=== PATIENT | male | born 1965 | race Caucasian/White ===

== ENCOUNTER 2016-06-11 19:18 | Inpatient (IN) | payer MEDICARE, MEDICAID ==
[~2016-06-11] VITALS: Ht 185.4 cm; Wt 97.2 kg
[~2016-06-11 19:18] MED LIST: BUPR-93 PO; CARB200T6 PO; NALT50 PO; QUET50XR PO
[2016-06-11] MEDS ORDERED: ZOLPIDEM TARTRATE 10 MG TABLET PO PRN (20:15)
[2016-06-11] MEDS ORDERED: HALOPERIDOL 5 MG TABLET PO PRN (20:15)
[2016-06-11] MEDS ORDERED: GABA-531 PO (20:55)
[2016-06-11 21:12] LABS: BASOPHILS % (AUTO) 0.7 % (0.0-2.0); EOSINOPHILS % (AUTO) 5.2 % (1.0-6.0); HEMATOCRIT 38.3 % (41-53); HEMOGLOBIN 13.1 g/dL (13.5-17.5); LYMPHOCYTES # (AUTO) 1.5 K/uL (1.0-4.8); LYMPHOCYTES % (AUTO) 25.7 % (22.0-44.0); MEAN CORPUSCULAR HEMOGLOBIN 30.5 pg (26.0-34.0); MEAN CORPUSCULAR HGB CONC 34.2 G/dL (31.0-37.0); MEAN CORPUSCULAR VOLUME 89 fL (80-100); MONOCYTES # (AUTO) 0.5 K/uL (0.1-1.0); MONOCYTES % (AUTO) 8.6 % (2.0-9.0); NEUTROPHILS # (AUTO) 3.5 K/uL (1.8-7.7); NEUTROPHILS % (AUTO) 59.8 % (40.0-70.0); PLATELET COUNT (AUTO) 299 K/uL (150-450); RED BLOOD CELL COUNT(AUTO) 4.31 MIL/uL (4.50-5.90); RED CELL DISTRIBUTION WIDTH 12.8 % (11.5-14.5); WHITE BLOOD COUNT (AUTO) 5.9 K/uL (4.5-11.0)
[2016-06-11 21:22] LABS: ANION GAP 10 mmol/L (8-16); CALCIUM, TOTAL 7.9 mg/dL (8.8-10.5); CARBON DIOXIDE 27 mmol/L (22-29); CHLORIDE 106 mmol/L (98-107); CREATININE 0.68 mg/dL (0.60-1.30); GLOMERULAR FILTR. RATE CALC > 60 mL/min (>60); POTASSIUM 3.7 mmol/L (3.5-5.1); SODIUM SERUM 143 mmol/L (136-145); UREA NITROGEN, BLOOD 9 mg/dL (7-18)
[2016-06-11 21:28] LABS: ALANINE AMINOTRANSFERASE 43 U/L (12-78); ALBUMIN 2.9 g/dL (3.4-5.0); ASPARTATE AMINOTRANSFERASE 29 U/L (15-37); BILIRUBIN,TOTAL 0.2 mg/dL (0.1-1.0); TOTAL PROTEIN, SERUM 6.6 g/dL (6.4-8.2)
[2016-06-11 21:50] LABS: APPEARANCE,URINE CLEAR (CLEAR); GLUCOSE, URINE (UA) NEGATIVE (NEGATIVE); KETONES,URINE NEGATIVE (NEGATIVE); LEUKOCYTE ESTERASE ,URINE NEGATIVE (NEGATIVE); OCCULT BLOOD,URINE NEGATIVE (NEGATIVE); PROTEIN,URINE NEGATIVE (NEGATIVE)
[2016-06-11 21:51] LABS: ADD UA MICROSCOPIC NO
[2016-06-11] MEDS ORDERED: DiphenhydrAMINE HCL 25 MG CAPSULE PO ONE (23:15)
[2016-06-11] MEDS ORDERED: DEXAMETHASONE SOD PHOS 4 MG/ML 5 ML VIAL IM ONE (23:15)
[2016-06-12 06:35] LABS: BASOPHILS % (AUTO) 0.2 % (0.0-2.0); EOSINOPHILS % (AUTO) 0.4 % (1.0-6.0); HEMATOCRIT 41.5 % (41-53); HEMOGLOBIN 13.9 g/dL (13.5-17.5); LYMPHOCYTES # (AUTO) 0.8 K/uL (1.0-4.8); LYMPHOCYTES % (AUTO) 10.4 % (22.0-44.0); MEAN CORPUSCULAR HEMOGLOBIN 30.2 pg (26.0-34.0); MEAN CORPUSCULAR HGB CONC 33.5 G/dL (31.0-37.0); MEAN CORPUSCULAR VOLUME 90 fL (80-100); MONOCYTES # (AUTO) 0.1 K/uL (0.1-1.0); MONOCYTES % (AUTO) 1.2 % (2.0-9.0); NEUTROPHILS # (AUTO) 6.4 K/uL (1.8-7.7); PLATELET COUNT (AUTO) 288 K/uL (150-450); RED BLOOD CELL COUNT(AUTO) 4.61 MIL/uL (4.50-5.90); RED CELL DISTRIBUTION WIDTH 13.1 % (11.5-14.5); WHITE BLOOD COUNT (AUTO) 7.3 K/uL (4.5-11.0)
[2016-06-12 06:54] LABS: NEUTROPHILS % (AUTO) 87.8 % (40.0-70.0)
[2016-06-12 07:06] LABS: HEMOGLOBIN A1C 5.9 % (4.5-6.2)
[2016-06-12 07:12] LABS: ALANINE AMINOTRANSFERASE 41 U/L (12-78); ALBUMIN 2.9 g/dL (3.4-5.0); ANION GAP 8 mmol/L (8-16); ASPARTATE AMINOTRANSFERASE 27 U/L (15-37); BILIRUBIN,TOTAL 0.3 mg/dL (0.1-1.0); CALCIUM, TOTAL 8.2 mg/dL (8.8-10.5); CARBON DIOXIDE 27 mmol/L (22-29); CHLORIDE 105 mmol/L (98-107); CHOL/HDL RATIO 3.1 (4.2-7.3); CREATININE 0.93 mg/dL (0.60-1.30); GLOMERULAR FILTR. RATE CALC > 60 mL/min (>60); POTASSIUM 4.1 mmol/L (3.5-5.1); SODIUM SERUM 140 mmol/L (136-145); THYROID STIMULATING HORMONE 1.13 uIU/mL (0.36-3.74); TOTAL PROTEIN, SERUM 6.9 g/dL (6.4-8.2); UREA NITROGEN, BLOOD 11 mg/dL (7-18)
[2016-06-12 09:12] LABS: RBC MORPHOLOGY COMMENT NORMAL RBC MORPH
[2016-06-12] MEDS: BuPROPion HCL XL 150 MG ER TABLET PO SCH (11:18)
[2016-06-12] MEDS ORDERED: ACETAMINOPHEN 325 MG TABLET PO PRN (14:15)
[2016-06-12] MEDS ORDERED: IBUPROFEN 600 MG TABLET PO PRN (14:15)
[2016-06-12] MEDS ORDERED: MAG HYDROX/AL HYDROX/SIMETH ES 30 ML SUSPENSION UDCUP PO PRN (14:45)
[2016-06-12] MEDS ORDERED: ONDANSETRON HCL 4 MG TABLET PO PRN (14:45)
[2016-06-12] MEDS ORDERED: BACITRACIN 28.4 GM OINTMENT TP PRN (14:45)
[2016-06-12] MEDS ORDERED: PETROLATUM,WHITE 71 GM JELLY TP PRN (14:45)
[2016-06-12] MEDS ORDERED: MAGNESIUM HYDROXIDE SUSPENSION 30 ML UDCUP PO PRN (14:45)
[2016-06-12] MEDS ORDERED: CloNIDine HCL 0.1 MG TABLET PO PRN (14:45)
[2016-06-12] MEDS ORDERED: LOPERAMIDE HCL 2 MG CAPSULE PO PRN (14:45)
[2016-06-12] MEDS ORDERED: ALBUTEROL SULFATE HFA 90 MCG/PUFF 8 GM INHALER IH PRN (14:45)
[2016-06-12] MEDS ORDERED: BENZOCAINE/MENTHOL LOZENGE [8 LOZENGES/PACKET] MM PRN (15:00)
[2016-06-12] MEDS: CLOBETASOL 0.05% 15 GM CREAM TP SCH (16:32)
[2016-06-12 17:15] VITALS: BP 143/82
[2016-06-12] MEDS: QUEtiapine FUMARATE 200 MG TABLET PO SCH (20:05)
[2016-06-13] MEDS: CHOLECALCIFEROL (VIT D3) 1,000 UNITS TABLET PO SCH (08:27)
[2016-06-13] MEDS: BuPROPion HCL XL 150 MG ER TABLET PO SCH (08:27)
[2016-06-13 08:46] VITALS: BP 117/62
[2016-06-13] MEDS: CLOBETASOL 0.05% 15 GM CREAM TP SCH (12:09)
[2016-06-13 19:53] VITALS: BP 118/65
[2016-06-13] MEDS: QUEtiapine FUMARATE 200 MG TABLET PO SCH (20:04)
[2016-06-14 08:10] VITALS: BP 113/62
[2016-06-14] MEDS: CLOBETASOL 0.05% 15 GM CREAM TP SCH (09:23)
[2016-06-14] MEDS: LORazepam 2 MG TABLET PO PRN (09:26)
[2016-06-14] MEDS: CHOLECALCIFEROL (VIT D3) 1,000 UNITS TABLET PO SCH (09:30)
[2016-06-14] MEDS: BuPROPion HCL XL 150 MG ER TABLET PO SCH (09:30)
[2016-06-14 16:30] VITALS: BP 123/73
[2016-06-14] MEDS: QUEtiapine FUMARATE 200 MG ER TABLET PO SCH (19:39)
[2016-06-15 08:09] VITALS: BP 102/72
[2016-06-15] MEDS: CHOLECALCIFEROL (VIT D3) 1,000 UNITS TABLET PO SCH (08:52)
[2016-06-15] MEDS: BuPROPion HCL XL 150 MG ER TABLET PO SCH (08:52)
[2016-06-15] MEDS: CLOBETASOL 0.05% 15 GM CREAM TP SCH (08:53)
[2016-06-15] MEDS: LORazepam 2 MG TABLET PO PRN (11:26)
[2016-06-15 18:49] VITALS: BP_SYST 107; BP_SYST 112; BP_DIAS 68; BP_DIAS 72
[2016-06-15] MEDS: QUEtiapine FUMARATE 200 MG ER TABLET PO SCH (19:20)
[2016-06-16 08:30] VITALS: BP 108/72
[2016-06-16] MEDS: CHOLECALCIFEROL (VIT D3) 1,000 UNITS TABLET PO SCH (08:44)
[2016-06-16] MEDS: BuPROPion HCL XL 150 MG ER TABLET PO SCH (08:44)
[2016-06-16] MEDS: CLOBETASOL 0.05% 15 GM CREAM TP SCH (08:45)
[2016-06-16] MEDS: LORazepam 2 MG TABLET PO PRN (15:01)
[2016-06-16 16:44] VITALS: BP 132/78
[2016-06-16] MEDS: QUEtiapine FUMARATE 200 MG ER TABLET PO SCH (19:30)
[2016-06-17 08:30] VITALS: BP 132/81
[2016-06-17] MEDS: CHOLECALCIFEROL (VIT D3) 1,000 UNITS TABLET PO SCH (09:02)
[2016-06-17] MEDS: BuPROPion HCL XL 150 MG ER TABLET PO SCH (09:02)
[2016-06-17] MEDS: CLOBETASOL 0.05% 15 GM CREAM TP SCH (09:03)
[2016-06-17] MEDS: LORazepam 2 MG TABLET PO PRN (16:39)
[2016-06-17 16:47] VITALS: BP 144/76
[2016-06-17] MEDS: QUEtiapine FUMARATE 200 MG ER TABLET PO SCH (20:59)
[2016-06-18 08:11] VITALS: BP 118/67
[2016-06-18] MEDS: CHOLECALCIFEROL (VIT D3) 1,000 UNITS TABLET PO SCH (08:53)
[2016-06-18] MEDS: BuPROPion HCL XL 150 MG ER TABLET PO SCH (08:54)
[2016-06-18] MEDS: CLOBETASOL 0.05% 15 GM CREAM TP SCH (11:16)
[2016-06-18] MEDS ORDERED: QUET200XR PO (11:34)
[2016-06-18] MEDS ORDERED: BUPR-93 PO (11:34)
[2016-06-18] MEDS ORDERED: VITAD1000 PO (11:36)
[2016-06-18] MEDS ORDERED: TEMO15C TP (11:37)
== END 2016-06-18 12:00 | disposition home or self-care (01) | DRG 885 ==
LOC: BV PSY EVL 20:42 → 3EI 23:50
PROVIDERS: ATTEND Psychiatry & Neurology Psychiatry
DX: F31.30 Bipolar disorder, current episode depressed, mild or moderate severity, unspecified (principal); R45.851 Suicidal ideations; E55.9 Vitamin D deficiency, unspecified; F25.1 Schizoaffective disorder, depressive type; F17.200 Nicotine dependence, unspecified, uncomplicated; I10 Essential (primary) hypertension; J44.9 Chronic obstructive pulmonary disease, unspecified; K21.9 Gastro-esophageal reflux disease without esophagitis; K59.00 Constipation, unspecified; L23.7 Allergic contact dermatitis due to plants, except food; Y90.6 Blood alcohol level of 120-199 mg/100 ml; M25.562 Pain in left knee; F10.229 Alcohol dependence with intoxication, unspecified; Z59.0 Homelessness; Z71.6 Tobacco abuse counseling; Z91.5 Personal history of self-harm; Z28.21 Immunization not carried out because of patient refusal; Z79.899 Other long term (current) drug therapy; Z56.0 Unemployment, unspecified
CPT/HCPCS: 83036; 84439; 84443; 96372; 99285; G0480; J1100; J3535; Q0162

== ENCOUNTER 2016-07-05 23:58 | Inpatient (IN) | payer MEDICARE, MEDICAID ==
[~2016-07-05] VITALS: Ht 185.4 cm; Wt 99.9 kg
[~2016-07-05 23:58] MED LIST changes: -CARB200T6 PO; -NALT50 PO; +QUET200XR PO; -QUET50XR PO; +TEMO15C TP; +VITAD1000 PO
[2016-07-06] VITALS (7 sets, daily range): BP systolic 116–160; BP diastolic 68–83
[2016-07-06] MEDS ORDERED: ZOLPIDEM TARTRATE 10 MG TABLET PO PRN ×2 (03:00→03:30)
[2016-07-06] MEDS ORDERED: HALOPERIDOL 5 MG TABLET PO PRN (03:00)
[2016-07-06] MEDS ORDERED: LORazepam 2 MG TABLET PO PRN ×3 (03:00→04:30)
[2016-07-06] MEDS ORDERED: QUEtiapine FUMARATE 100 MG TABLET PO PRN (03:30)
[2016-07-06] MEDS ORDERED: LOPERAMIDE HCL 2 MG CAPSULE PO PRN ×2 (04:30→08:30)
[2016-07-06] MEDS ORDERED: HydrOXYzine PAMOATE 50 MG CAPSULE PO PRN (04:30)
[2016-07-06] MEDS ORDERED: GuaiFENesin/D-METHORPHAN [SUGAR-FREE] 200-20MG/10 ML SYRUP UDCUP PO PRN (04:30)
[2016-07-06] MEDS ORDERED: INFLUENZA VIRUS VACCINE QVS 2016-17 (3YR+)/PF 60 MCG/0.5 ML SYRINGE IM ONE (06:00)
[2016-07-06] MEDS ORDERED: PNEUMOCOCCAL VACCINE POLYVALENT 0.5 ML VIAL [PPSV23] IM ONE (06:00)
[2016-07-06] MEDS ORDERED: ALBUTEROL SULFATE HFA 90 MCG/PUFF 8 GM INHALER IH PRN (08:30)
[2016-07-06] MEDS ORDERED: ONDANSETRON HCL 4 MG TABLET PO PRN (08:30)
[2016-07-06] MEDS ORDERED: PETROLATUM,WHITE 71 GM JELLY TP PRN (08:30)
[2016-07-06] MEDS ORDERED: BACITRACIN 28.4 GM OINTMENT TP PRN (08:30)
[2016-07-06] MEDS ORDERED: CloNIDine HCL 0.1 MG TABLET PO PRN (08:30)
[2016-07-06] MEDS ORDERED: ACETAMINOPHEN 325 MG TABLET PO PRN (08:30)
[2016-07-06] MEDS ORDERED: MAG HYDROX/AL HYDROX/SIMETH ES 30 ML SUSPENSION UDCUP PO PRN (08:30)
[2016-07-06] MEDS ORDERED: IBUPROFEN 600 MG TABLET PO PRN (08:30)
[2016-07-06] MEDS ORDERED: BENZOCAINE/MENTHOL LOZENGE MM PRN (08:30)
[2016-07-06] MEDS ORDERED: CYANOCOBALAMIN 1,000 MCG/ML VIAL IM ONE (09:00)
[2016-07-06] MEDS: FOLIC ACID 1 MG TABLET PO SCH (09:35)
[2016-07-06] MEDS: THIAMINE HCL 100 MG TABLET PO SCH ×2 (09:36→17:06)
[2016-07-06] MEDS: MULTIVITAMINS WITH MINERALS, THERAPEUTIC TABLET PO SCH (09:36)
[2016-07-06] MEDS: CHOLECALCIFEROL (VIT D3) 1,000 UNITS TABLET PO SCH (09:36)
[2016-07-06] MEDS: CarBAMazepine 200 MG TABLET PO SCH (17:43)
[2016-07-07 00:08] VITALS: BP 115/65
[2016-07-07 03:10] VITALS: BP 126/77
[2016-07-07] MEDS ORDERED: LORazepam 2 MG TABLET PO PRN (07:00)
[2016-07-07 07:15] VITALS: BP 123/72
[2016-07-07 08:14] VITALS: BP 130/82
[2016-07-07 08:15] VITALS: BP 130/82
[2016-07-07] MEDS: THIAMINE HCL 100 MG TABLET PO SCH ×2 (09:13→16:40)
[2016-07-07] MEDS: MULTIVITAMINS WITH MINERALS, THERAPEUTIC TABLET PO SCH (09:13)
[2016-07-07] MEDS: FOLIC ACID 1 MG TABLET PO SCH (09:13)
[2016-07-07] MEDS: LORazepam 2 MG TABLET PO SCH ×4 (09:14→20:33)
[2016-07-07] MEDS: CHOLECALCIFEROL (VIT D3) 1,000 UNITS TABLET PO SCH (09:14)
[2016-07-07] MEDS: CarBAMazepine 200 MG TABLET PO SCH ×2 (09:14→16:40)
[2016-07-07 16:08] VITALS: BP 123/71
[2016-07-07] MEDS: MAGNESIUM HYDROXIDE SUSPENSION 30 ML UDCUP PO PRN (20:10)
[2016-07-08] VITALS: BP 116/73
[2016-07-08 06:32] VITALS: BP 116/69
[2016-07-08 07:37] LABS: BASOPHILS # (AUTO) 0.03 K/uL (0.00-0.20); BASOPHILS % (AUTO) 0.5 % (0.0-2.0); EOSINOPHILS # (AUTO) 0.36 K/uL (0.00-0.70); EOSINOPHILS % (AUTO) 6.03 % (1.0-6.0); HEMOGLOBIN 13.8 g/dL (13.5-17.5); LYMPHOCYTES # (AUTO) 1.5 K/uL (1.0-4.8); LYMPHOCYTES % (AUTO) 25.1 % (22.0-44.0); MEAN CORPUSCULAR HEMOGLOBIN 30.2 pg (26.0-34.0); MEAN CORPUSCULAR HGB CONC 33.6 G/dL (31.0-37.0); MEAN CORPUSCULAR VOLUME 90 fL (80-100); MONOCYTES # (AUTO) 0.4 K/uL (0.1-1.0); MONOCYTES % (AUTO) 7.2 % (2.0-9.0); NEUTROPHILS # (AUTO) 3.6 K/uL (1.8-7.7); NEUTROPHILS % (AUTO) 61.1 % (40.0-70.0); PLATELET COUNT (AUTO) 271 K/uL (150-450); RED BLOOD CELL COUNT(AUTO) 4.57 MIL/uL (4.50-5.90); RED CELL DISTRIBUTION WIDTH 14.6 % (11.5-14.5); WHITE BLOOD COUNT (AUTO) 5.9 K/uL (4.5-11.0)
[2016-07-08 08:01] LABS: ALANINE AMINOTRANSFERASE 35 U/L (12-78); ALBUMIN 2.9 g/dL (3.4-5.0); ANION GAP 5 mmol/L (8-16); ASPARTATE AMINOTRANSFERASE 16 U/L (15-37); BILIRUBIN,TOTAL 0.3 mg/dL (0.1-1.0); CALCIUM, TOTAL 8.3 mg/dL (8.8-10.5); CARBON DIOXIDE 30 mmol/L (22-29); CHLORIDE 103 mmol/L (98-107); CREATININE 0.93 mg/dL (0.60-1.30); GLOMERULAR FILTR. RATE CALC > 60 mL/min (>60); POTASSIUM 4.1 mmol/L (3.5-5.1); SODIUM SERUM 138 mmol/L (136-145); TOTAL PROTEIN, SERUM 6.6 g/dL (6.4-8.2); UREA NITROGEN, BLOOD 9 mg/dL (7-18)
[2016-07-08 08:02] VITALS: BP 118/72
[2016-07-08] MEDS: MULTIVITAMINS WITH MINERALS, THERAPEUTIC TABLET PO SCH (09:31)
[2016-07-08] MEDS: THIAMINE HCL 100 MG TABLET PO SCH ×2 (09:32→16:43)
[2016-07-08] MEDS: CarBAMazepine 200 MG TABLET PO SCH ×2 (09:32→16:43)
[2016-07-08] MEDS: LORazepam 2 MG TABLET PO SCH ×4 (09:32→20:41)
[2016-07-08] MEDS: FOLIC ACID 1 MG TABLET PO SCH (09:32)
[2016-07-08] MEDS: CHOLECALCIFEROL (VIT D3) 1,000 UNITS TABLET PO SCH (09:32)
[2016-07-08 16:14] VITALS: BP 119/71
[2016-07-09 00:32] VITALS: BP 113/68
[2016-07-09 03:13] VITALS: BP 113/68
[2016-07-09] MEDS: MAGNESIUM HYDROXIDE SUSPENSION 30 ML UDCUP PO PRN (06:43)
[2016-07-09] MEDS ORDERED: LORazepam 1 MG TABLET PO PRN (07:00)
[2016-07-09 08:27] VITALS: BP 119/56
[2016-07-09] MEDS: THIAMINE HCL 100 MG TABLET PO SCH ×2 (09:34→16:38)
[2016-07-09] MEDS: LORazepam 1 MG TABLET PO SCH ×4 (09:35→20:40)
[2016-07-09] MEDS: BuPROPion HCL XL 150 MG ER TABLET PO SCH (09:35)
[2016-07-09] MEDS: MULTIVITAMINS WITH MINERALS, THERAPEUTIC TABLET PO SCH (09:36)
[2016-07-09] MEDS: CHOLECALCIFEROL (VIT D3) 1,000 UNITS TABLET PO SCH (09:36)
[2016-07-09] MEDS: FOLIC ACID 1 MG TABLET PO SCH (09:36)
[2016-07-09] MEDS: CarBAMazepine 200 MG TABLET PO SCH ×2 (09:38→16:37)
[2016-07-09 13:23] VITALS: BP 111/74
[2016-07-09 16:53] VITALS: BP 116/75
[2016-07-09] MEDS: QUEtiapine FUMARATE 50 MG ER TABLET PO SCH (19:06)
[2016-07-10] VITALS: BP 117/73
[2016-07-10 08:28] VITALS: BP 102/55
[2016-07-10] MEDS: CarBAMazepine 200 MG TABLET PO SCH ×2 (09:06→16:35)
[2016-07-10] MEDS: BuPROPion HCL XL 150 MG ER TABLET PO SCH (09:07)
[2016-07-10] MEDS: MULTIVITAMINS WITH MINERALS, THERAPEUTIC TABLET PO SCH (09:07)
[2016-07-10] MEDS: THIAMINE HCL 100 MG TABLET PO SCH ×2 (09:07→16:35)
[2016-07-10] MEDS: FOLIC ACID 1 MG TABLET PO SCH (09:07)
[2016-07-10] MEDS: CHOLECALCIFEROL (VIT D3) 1,000 UNITS TABLET PO SCH (09:07)
[2016-07-10] MEDS: LORazepam 1 MG TABLET PO PRN ×2 (09:22→22:55)
[2016-07-10 16:25] VITALS: BP 108/67
[2016-07-10] MEDS: QUEtiapine FUMARATE 50 MG ER TABLET PO SCH (18:59)
[2016-07-11 06:15] VITALS: BP 103/60
[2016-07-11 08:18] VITALS: BP 101/65
[2016-07-11] MEDS: BuPROPion HCL XL 150 MG ER TABLET PO SCH (08:54)
[2016-07-11] MEDS: CarBAMazepine 200 MG TABLET PO SCH ×2 (08:54→16:40)
[2016-07-11] MEDS: FOLIC ACID 1 MG TABLET PO SCH (08:54)
[2016-07-11] MEDS: MULTIVITAMINS WITH MINERALS, THERAPEUTIC TABLET PO SCH (08:54)
[2016-07-11] MEDS: CHOLECALCIFEROL (VIT D3) 1,000 UNITS TABLET PO SCH (08:54)
[2016-07-11] MEDS: THIAMINE HCL 100 MG TABLET PO SCH ×2 (08:54→16:40)
[2016-07-11] MEDS: MAGNESIUM HYDROXIDE SUSPENSION 30 ML UDCUP PO PRN (09:00)
[2016-07-11 16:12] VITALS: BP 121/79
[2016-07-11] MEDS: QUEtiapine FUMARATE 50 MG ER TABLET PO SCH (19:00)
[2016-07-12 00:52] VITALS: BP 101/62
[2016-07-12 08:07] VITALS: BP 117/78
[2016-07-12] MEDS: FOLIC ACID 1 MG TABLET PO SCH (08:11)
[2016-07-12] MEDS: THIAMINE HCL 100 MG TABLET PO SCH ×2 (08:11→16:35)
[2016-07-12] MEDS: CarBAMazepine 200 MG TABLET PO SCH ×2 (08:11→16:35)
[2016-07-12] MEDS: NALTREXONE HCL 50 MG TABLET PO SCH (08:11)
[2016-07-12] MEDS: MULTIVITAMINS WITH MINERALS, THERAPEUTIC TABLET PO SCH (08:11)
[2016-07-12] MEDS: CHOLECALCIFEROL (VIT D3) 1,000 UNITS TABLET PO SCH (08:11)
[2016-07-12] MEDS: BuPROPion HCL XL 150 MG ER TABLET PO SCH (08:11)
[2016-07-12] MEDS: LORazepam 2 MG TABLET PO PRN ×3 (08:32→23:53)
[2016-07-12 16:09] VITALS: BP 117/61
[2016-07-12] MEDS: QUEtiapine FUMARATE 50 MG ER TABLET PO SCH (19:40)
[2016-07-13 00:01] VITALS: BP 113/82
[2016-07-13 08:19] VITALS: BP 108/60
[2016-07-13] MEDS: THIAMINE HCL 100 MG TABLET PO SCH ×2 (09:23→16:13)
[2016-07-13] MEDS: FOLIC ACID 1 MG TABLET PO SCH (09:23)
[2016-07-13] MEDS: CHOLECALCIFEROL (VIT D3) 1,000 UNITS TABLET PO SCH (09:23)
[2016-07-13] MEDS: NALTREXONE HCL 50 MG TABLET PO SCH (09:23)
[2016-07-13] MEDS: MULTIVITAMINS WITH MINERALS, THERAPEUTIC TABLET PO SCH (09:23)
[2016-07-13] MEDS: BuPROPion HCL XL 150 MG ER TABLET PO SCH (09:24)
[2016-07-13] MEDS: CarBAMazepine 100 MG CHEWABLE TABLET PO SCH ×2 (09:24→16:12)
[2016-07-13 16:12] VITALS: BP 130/61
[2016-07-13] MEDS: LORazepam 2 MG TABLET PO PRN ×2 (16:38→21:34)
[2016-07-13] MEDS: QUEtiapine FUMARATE 50 MG ER TABLET PO SCH (19:34)
[2016-07-14 04:26] VITALS: BP 134/71
[2016-07-14 07:01] VITALS: BP 118/160
[2016-07-14 08:06] VITALS: BP 118/60
[2016-07-14] MEDS: MULTIVITAMINS WITH MINERALS, THERAPEUTIC TABLET PO SCH (08:34)
[2016-07-14] MEDS: NALTREXONE HCL 50 MG TABLET PO SCH (08:34)
[2016-07-14] MEDS: FOLIC ACID 1 MG TABLET PO SCH (08:34)
[2016-07-14] MEDS: THIAMINE HCL 100 MG TABLET PO SCH ×2 (08:34→16:56)
[2016-07-14] MEDS: BuPROPion HCL XL 150 MG ER TABLET PO SCH (08:34)
[2016-07-14] MEDS: CHOLECALCIFEROL (VIT D3) 1,000 UNITS TABLET PO SCH (08:34)
[2016-07-14] MEDS: CarBAMazepine 100 MG CHEWABLE TABLET PO SCH (08:34)
[2016-07-14 16:21] VITALS: BP 124/67
[2016-07-14] MEDS: QUEtiapine FUMARATE 50 MG ER TABLET PO SCH (19:17)
[2016-07-14] MEDS: LORazepam 2 MG TABLET PO PRN (22:54)
[2016-07-15 01:07] VITALS: BP 110/66
[2016-07-15 08:26] VITALS: BP 101/63
[2016-07-15] MEDS: MULTIVITAMINS WITH MINERALS, THERAPEUTIC TABLET PO SCH (08:46)
[2016-07-15] MEDS: BuPROPion HCL XL 150 MG ER TABLET PO SCH (08:46)
[2016-07-15] MEDS: THIAMINE HCL 100 MG TABLET PO SCH ×2 (08:46→16:06)
[2016-07-15] MEDS: FOLIC ACID 1 MG TABLET PO SCH (08:46)
[2016-07-15] MEDS: CHOLECALCIFEROL (VIT D3) 1,000 UNITS TABLET PO SCH (08:47)
[2016-07-15] MEDS: NALTREXONE HCL 50 MG TABLET PO SCH (08:48)
[2016-07-15] MEDS: LORazepam 2 MG TABLET PO PRN ×2 (13:22→18:35)
[2016-07-15 16:04] VITALS: BP 131/81
[2016-07-15] MEDS: QUEtiapine FUMARATE 50 MG ER TABLET PO SCH (18:35)
[2016-07-16 00:15] VITALS: BP 110/68
[2016-07-16 08:04] VITALS: BP 111/54
[2016-07-16] MEDS ORDERED: QUET150T PO (08:13)
[2016-07-16] MEDS ORDERED: NALT50TA10 PO (08:15)
[2016-07-16] MEDS: MULTIVITAMINS WITH MINERALS, THERAPEUTIC TABLET PO SCH (08:16)
[2016-07-16] MEDS: CHOLECALCIFEROL (VIT D3) 1,000 UNITS TABLET PO SCH (08:16)
[2016-07-16] MEDS: BuPROPion HCL XL 150 MG ER TABLET PO SCH (08:16)
[2016-07-16] MEDS: NALTREXONE HCL 50 MG TABLET PO SCH (08:16)
== END 2016-07-16 10:30 | disposition home or self-care (01) | DRG 885 ==
LOC: B3A 07-06 03:05 → B2X 07-06 17:10 → B2S 07-12 20:02
PROVIDERS: ADMIT Psychiatry & Neurology Psychiatry; ATTEND Psychiatry & Neurology Psychiatry
DX: F31.30 Bipolar disorder, current episode depressed, mild or moderate severity, unspecified (principal); F10.239 Alcohol dependence with withdrawal, unspecified; R45.851 Suicidal ideations; F31.9 Bipolar disorder, unspecified; F25.9 Schizoaffective disorder, unspecified; G47.00 Insomnia, unspecified; I10 Essential (primary) hypertension; J44.9 Chronic obstructive pulmonary disease, unspecified; F17.210 Nicotine dependence, cigarettes, uncomplicated; K21.9 Gastro-esophageal reflux disease without esophagitis; F10.220 Alcohol dependence with intoxication, uncomplicated; E55.9 Vitamin D deficiency, unspecified; K59.00 Constipation, unspecified; Z79.899 Other long term (current) drug therapy; Z91.14 Patient's other noncompliance with medication regimen; Z59.0 Homelessness; Z28.21 Immunization not carried out because of patient refusal; Z71.6 Tobacco abuse counseling
CPT/HCPCS: 87081; 90471; J3420

== ENCOUNTER 2016-09-02 23:49 | Inpatient (IN) | payer MEDICARE, MEDICAID ==
[~2016-09-02] VITALS: Ht 185.4 cm; Wt 94.3 kg
[~2016-09-02 23:49] MED LIST changes: +NALT50TA10 PO; +QUET150T PO; -QUET200XR PO; -TEMO15C TP
[2016-09-03] VITALS (10 sets, daily range): BP systolic 112–145; BP diastolic 65–83
[2016-09-03] MEDS ORDERED: LORazepam 2 MG TABLET PO PRN (02:45)
[2016-09-03] MEDS ORDERED: ZOLPIDEM TARTRATE 5 MG TABLET PO PRN (02:45)
[2016-09-03] MEDS ORDERED: PNEUMOCOCCAL VACCINE POLYVALENT 0.5 ML VIAL [PPSV23] IM ONE (05:30)
[2016-09-03] MEDS ORDERED: LOPERAMIDE HCL 2 MG CAPSULE PO PRN (08:00)
[2016-09-03] MEDS ORDERED: MAGNESIUM HYDROXIDE SUSPENSION 30 ML UDCUP PO PRN (08:00)
[2016-09-03] MEDS ORDERED: BACITRACIN 28.4 GM OINTMENT TP PRN (08:00)
[2016-09-03] MEDS ORDERED: ONDANSETRON HCL 4 MG TABLET PO PRN (08:00)
[2016-09-03] MEDS ORDERED: PETROLATUM,WHITE 71 GM JELLY TP PRN (08:00)
[2016-09-03] MEDS ORDERED: CloNIDine HCL 0.1 MG TABLET PO PRN (08:00)
[2016-09-03] MEDS ORDERED: MAG HYDROX/AL HYDROX/SIMETH ES 30 ML SUSPENSION UDCUP PO PRN (08:00)
[2016-09-03] MEDS ORDERED: ALBUTEROL SULFATE HFA 90 MCG/PUFF 8 GM INHALER IH PRN (08:00)
[2016-09-03] MEDS ORDERED: ACETAMINOPHEN 325 MG TABLET PO PRN (08:00)
[2016-09-03] MEDS ORDERED: IBUPROFEN 600 MG TABLET PO PRN (08:00)
[2016-09-03] MEDS: CarBAMazepine 200 MG TABLET PO SCH ×2 (08:07→16:51)
[2016-09-03] MEDS ORDERED: BENZOCAINE/MENTHOL LOZENGE [8 LOZENGES/PACKET] MM PRN (08:15)
[2016-09-03] MEDS: CHOLECALCIFEROL (VIT D3) 1,000 UNITS TABLET PO SCH (08:29)
[2016-09-04] VITALS (7 sets, daily range): BP systolic 110–121; BP diastolic 57–75
[2016-09-04 06:30] LABS: BASOPHILS # (AUTO) 0.02 K/uL (0.00-0.20); BASOPHILS % (AUTO) 0.4 % (0.0-2.0); EOSINOPHILS # (AUTO) 0.35 K/uL (0.00-0.70); HEMOGLOBIN 13.9 g/dL (13.5-17.5); LYMPHOCYTES # (AUTO) 1.3 K/uL (1.0-4.8); LYMPHOCYTES % (AUTO) 28.2 % (22.0-44.0); MEAN CORPUSCULAR HEMOGLOBIN 30.8 pg (26.0-34.0); MEAN CORPUSCULAR HGB CONC 33.1 G/dL (31.0-37.0); MEAN CORPUSCULAR VOLUME 93 fL (80-100); MONOCYTES # (AUTO) 0.4 K/uL (0.1-1.0); NEUTROPHILS # (AUTO) 2.6 K/uL (1.8-7.7); NEUTROPHILS % (AUTO) 55.9 % (40.0-70.0); PLATELET COUNT (AUTO) 248 K/uL (150-450); RED BLOOD CELL COUNT(AUTO) 4.51 MIL/uL (4.50-5.90); WHITE BLOOD COUNT (AUTO) 4.7 K/uL (4.5-11.0)
[2016-09-04] MEDS ORDERED: LORazepam 2 MG TABLET PO PRN (07:00)
[2016-09-04 07:40] LABS: ALANINE AMINOTRANSFERASE 30 U/L (12-78); ALBUMIN 3.2 g/dL (3.4-5.0); ANION GAP 6 mmol/L (8-16); ASPARTATE AMINOTRANSFERASE 17 U/L (15-37); BILIRUBIN,TOTAL 0.3 mg/dL (0.1-1.0); CALCIUM, TOTAL 8.2 mg/dL (8.8-10.5); CARBON DIOXIDE 29 mmol/L (22-29); CHLORIDE 105 mmol/L (98-107); CHOL/HDL RATIO 4.3 (4.2-7.3); CREATININE 0.84 mg/dL (0.60-1.30); GLOMERULAR FILTR. RATE CALC > 60 mL/min (>60); POTASSIUM 4.4 mmol/L (3.5-5.1); SODIUM SERUM 140 mmol/L (136-145); THYROID STIMULATING HORMONE 1.34 uIU/mL (0.36-3.74); TOTAL PROTEIN, SERUM 6.3 g/dL (6.4-8.2); UREA NITROGEN, BLOOD 14 mg/dL (7-18)
[2016-09-04] MEDS: CarBAMazepine 200 MG TABLET PO SCH ×2 (08:27→16:04)
[2016-09-04] MEDS: LORazepam 2 MG TABLET PO SCH ×4 (08:27→20:41)
[2016-09-04] MEDS: CHOLECALCIFEROL (VIT D3) 1,000 UNITS TABLET PO SCH (08:27)
[2016-09-05] MEDS: CarBAMazepine 200 MG TABLET PO SCH ×2 (08:17→16:15)
[2016-09-05] MEDS: LORazepam 2 MG TABLET PO SCH ×4 (08:17→21:07)
[2016-09-05] MEDS: BuPROPion HCL XL 150 MG ER TABLET PO SCH (08:17)
[2016-09-05] MEDS: CHOLECALCIFEROL (VIT D3) 1,000 UNITS TABLET PO SCH (08:17)
[2016-09-05 08:19] VITALS: BP 116/67
[2016-09-05 17:21] VITALS: BP 121/76
[2016-09-06] MEDS ORDERED: LORazepam 1 MG TABLET PO PRN (07:00)
[2016-09-06 08:30] VITALS: BP 110/65
[2016-09-06] MEDS: CarBAMazepine 200 MG TABLET PO SCH ×2 (08:32→17:22)
[2016-09-06] MEDS: CHOLECALCIFEROL (VIT D3) 1,000 UNITS TABLET PO SCH (08:32)
[2016-09-06] MEDS: BuPROPion HCL XL 150 MG ER TABLET PO SCH (08:33)
[2016-09-06] MEDS: LORazepam 1 MG TABLET PO SCH ×4 (08:35→21:00)
[2016-09-06 16:36] VITALS: BP 111/71
[2016-09-07] MEDS ORDERED: LORazepam 1 MG TABLET PO PRN (07:00)
[2016-09-07 08:30] VITALS: BP 107/69
[2016-09-07] MEDS: CarBAMazepine 200 MG TABLET PO SCH ×2 (08:54→16:04)
[2016-09-07] MEDS: BuPROPion HCL XL 150 MG ER TABLET PO SCH (08:54)
[2016-09-07] MEDS: CHOLECALCIFEROL (VIT D3) 1,000 UNITS TABLET PO SCH (08:54)
[2016-09-07 18:31] VITALS: BP 130/74
[2016-09-08] MEDS: CarBAMazepine 100 MG CHEWABLE TABLET PO SCH ×2 (08:21→16:30)
[2016-09-08] MEDS: BuPROPion HCL XL 150 MG ER TABLET PO SCH (08:21)
[2016-09-08] MEDS: CHOLECALCIFEROL (VIT D3) 1,000 UNITS TABLET PO SCH (08:22)
[2016-09-08 08:30] VITALS: BP 109/69
[2016-09-08 16:47] VITALS: BP 120/72
[2016-09-08] MEDS: QUEtiapine FUMARATE 50 MG ER TABLET PO SCH (18:36)
[2016-09-09] MEDS: CarBAMazepine 100 MG CHEWABLE TABLET PO SCH (08:34)
[2016-09-09] MEDS: CHOLECALCIFEROL (VIT D3) 1,000 UNITS TABLET PO SCH (08:34)
[2016-09-09] MEDS: BuPROPion HCL XL 150 MG ER TABLET PO SCH (08:35)
[2016-09-09 08:43] VITALS: BP 101/67
[2016-09-09 17:16] VITALS: BP 119/68
[2016-09-09] MEDS: QUEtiapine FUMARATE 50 MG ER TABLET PO SCH (19:30)
[2016-09-10] MEDS: BuPROPion HCL XL 150 MG ER TABLET PO SCH (08:24)
[2016-09-10] MEDS: CHOLECALCIFEROL (VIT D3) 1,000 UNITS TABLET PO SCH (08:24)
[2016-09-10] MEDS: CarBAMazepine 100 MG CHEWABLE TABLET PO SCH (08:25)
== END 2016-09-10 12:30 | disposition home or self-care (01) | DRG 885 ==
LOC: 3EX 09-03 03:16 → UNDOADMIN 09-03 03:29 → 3EI 09-09 10:58
PROVIDERS: ADMIT Psychiatry & Neurology Psychiatry; ATTEND Psychiatry & Neurology Psychiatry
PROC: 3E0234Z Introduction of Serum, Toxoid and Vaccine into Muscle, Percutaneous Approach (ICD-10-PCS; principal; 2016-09-03)
DX: F31.9 Bipolar disorder, unspecified (principal); F32.3 Major depressive disorder, single episode, severe with psychotic features; R45.851 Suicidal ideations; F10.220 Alcohol dependence with intoxication, uncomplicated; I10 Essential (primary) hypertension; K21.9 Gastro-esophageal reflux disease without esophagitis; J44.9 Chronic obstructive pulmonary disease, unspecified; E55.9 Vitamin D deficiency, unspecified; F17.200 Nicotine dependence, unspecified, uncomplicated; G47.00 Insomnia, unspecified; Z28.21 Immunization not carried out because of patient refusal; Z71.6 Tobacco abuse counseling; Z79.899 Other long term (current) drug therapy
CPT/HCPCS: 84439; 84443

== ENCOUNTER 2016-09-23 20:34 | Emergency (ER) | payer OTHER, MEDICAID ==
[~2016-09-23] VITALS: Ht 188 cm; Wt 97.7 kg
[~2016-09-23 20:34] MED LIST changes: -NALT50TA10 PO
[2016-09-23 21:07] LABS: BASOPHILS % (AUTO) 0.5 % (0.0-2.0); EOSINOPHILS % (AUTO) 5.3 % (1.0-6.0); HEMATOCRIT 41.9 % (41-53); HEMOGLOBIN 13.5 g/dL (13.5-17.5); LYMPHOCYTES # (AUTO) 1.5 K/uL (1.0-4.8); MEAN CORPUSCULAR HGB CONC 32.1 G/dL (31.0-37.0); MEAN CORPUSCULAR VOLUME 93 fL (80-100); MONOCYTES # (AUTO) 0.7 K/uL (0.1-1.0); MONOCYTES % (AUTO) 9.4 % (2.0-9.0); NEUTROPHILS # (AUTO) 4.9 K/uL (1.8-7.7); NEUTROPHILS % (AUTO) 64.8 % (40.0-70.0); PLATELET COUNT (AUTO) 289 K/uL (150-450); RED BLOOD CELL COUNT(AUTO) 4.49 MIL/uL (4.50-5.90); RED CELL DISTRIBUTION WIDTH 14.1 % (11.5-14.5); WHITE BLOOD COUNT (AUTO) 7.5 K/uL (4.5-11.0)
[2016-09-23 21:17] LABS: ANION GAP 6 mmol/L (8-16); CALCIUM, TOTAL 8.7 mg/dL (8.8-10.5); CARBON DIOXIDE 31 mmol/L (22-29); CHLORIDE 101 mmol/L (98-107); CREATININE 0.82 mg/dL (0.60-1.30); GLOMERULAR FILTR. RATE CALC > 60 mL/min (>60); POTASSIUM 4.4 mmol/L (3.5-5.1); SODIUM SERUM 138 mmol/L (136-145); UREA NITROGEN, BLOOD 16 mg/dL (7-18)
[2016-09-23 21:23] LABS: ALANINE AMINOTRANSFERASE 29 U/L (12-78); ALBUMIN 3.5 g/dL (3.4-5.0); ASPARTATE AMINOTRANSFERASE 13 U/L (15-37); BILIRUBIN,TOTAL 0.2 mg/dL (0.1-1.0); TOTAL PROTEIN, SERUM 7.6 g/dL (6.4-8.2)
[2016-09-24 01:10] VITALS: BP 138/78
== END 2016-09-24 01:13 | disposition home or self-care (01) ==
LOC: EMS 20:37
DX: F20.9 Schizophrenia, unspecified (principal); I10 Essential (primary) hypertension; F31.9 Bipolar disorder, unspecified; F12.90 Cannabis use, unspecified, uncomplicated
CPT/HCPCS: 36415; 80053; 80307; 85025; 99284; G0480

== ENCOUNTER 2017-02-06 23:28 | Inpatient (IN) | payer MEDICARE, MEDICAID ==
[~2017-02-06] VITALS: Ht 185.4 cm; Wt 105.6 kg
[2017-02-07] VITALS (9 sets, daily range): BP systolic 130–142; BP diastolic 71–86
[2017-02-07] MEDS ORDERED: ZOLPIDEM TARTRATE 10 MG TABLET PO PRN (03:45)
[2017-02-07] MEDS ORDERED: QUEtiapine FUMARATE 100 MG TABLET PO PRN (03:45)
[2017-02-07] MEDS ORDERED: LORazepam 1 MG TABLET PO PRN (03:45)
[2017-02-07] MEDS ORDERED: INFLUENZA VIRUS VACCINE QVS 2017-18 (3YR+)/PF 60 MCG/0.5 ML SYRINGE IM ONE (04:30)
[2017-02-07] MEDS ORDERED: PNEUMOCOCCAL VACCINE POLYVALENT 0.5 ML VIAL [PPSV23] IM ONE (06:00)
[2017-02-07] MEDS: LORazepam 2 MG TABLET PO PRN ×2 (12:34→16:36)
[2017-02-08 06:54] VITALS: BP 136/72
[2017-02-08 06:55] VITALS: BP 136/72
[2017-02-08] MEDS ORDERED: LORazepam 2 MG TABLET PO PRN (07:00)
[2017-02-08 08:00] VITALS: BP 133/77
[2017-02-08 08:30] LABS: BASOPHILS # (AUTO) 0.03 K/uL (0.00-0.20); BASOPHILS % (AUTO) 0.6 % (0.0-2.0); EOSINOPHILS # (AUTO) 0.32 K/uL (0.00-0.70); EOSINOPHILS % (AUTO) 6.45 % (1.0-6.0); HEMATOCRIT 42.5 % (41-53); HEMOGLOBIN 14.3 g/dL (13.5-17.5); LYMPHOCYTES # (AUTO) 1.3 K/uL (1.0-4.8); LYMPHOCYTES % (AUTO) 26.1 % (22.0-44.0); MEAN CORPUSCULAR HEMOGLOBIN 30.6 pg (26.0-34.0); MEAN CORPUSCULAR HGB CONC 33.7 G/dL (31.0-37.0); MEAN CORPUSCULAR VOLUME 91 fL (80-100); MONOCYTES # (AUTO) 0.4 K/uL (0.1-1.0); MONOCYTES % (AUTO) 8.4 % (2.0-9.0); NEUTROPHILS # (AUTO) 2.9 K/uL (1.8-7.7); NEUTROPHILS % (AUTO) 58.4 % (40.0-70.0); PLATELET COUNT (AUTO) 215 K/uL (150-450); RED BLOOD CELL COUNT(AUTO) 4.68 MIL/uL (4.50-5.90); RED CELL DISTRIBUTION WIDTH 13.5 % (11.5-14.5)
[2017-02-08 08:38] LABS: HEMOGLOBIN A1C 6.1 % (4.5-6.2)
[2017-02-08 08:50] LABS: ALANINE AMINOTRANSFERASE 45 U/L (12-78); ALBUMIN 3.2 g/dL (3.4-5.0); ANION GAP 5 mmol/L (8-16); ASPARTATE AMINOTRANSFERASE 28 U/L (15-37); BILIRUBIN,TOTAL 0.4 mg/dL (0.1-1.0); CARBON DIOXIDE 28 mmol/L (22-29); CHLORIDE 103 mmol/L (98-107); CHOL/HDL RATIO 4.7 (4.2-7.3); GLOMERULAR FILTR. RATE CALC > 60 mL/min (>60); POTASSIUM 3.9 mmol/L (3.5-5.1); SODIUM SERUM 136 mmol/L (136-145); THYROID STIMULATING HORMONE 2.78 uIU/mL (0.36-3.74); UREA NITROGEN, BLOOD 12 mg/dL (7-18)
[2017-02-08 09:00] VITALS: BP 133/77
[2017-02-08] MEDS: LORazepam 2 MG TABLET PO SCH ×4 (09:03→21:09)
[2017-02-08] MEDS: ARIPiprazole 10 MG TABLET PO SCH (09:03)
[2017-02-08] MEDS: BuPROPion HCL 100 MG SR TABLET PO SCH (09:03)
[2017-02-08 12:55] VITALS: BP 131/76
[2017-02-08 16:03] VITALS: BP 129/76
[2017-02-09 06:37] VITALS: BP 125/73
[2017-02-09 07:39] VITALS: BP 162/113
[2017-02-09 08:27] VITALS: BP 127/73
[2017-02-09 08:33] VITALS: BP 127/73
[2017-02-09] MEDS ORDERED: LISINOPRIL 20 MG TABLET PO SCH (09:00)
[2017-02-09] MEDS: ARIPiprazole 10 MG TABLET PO SCH (09:32)
[2017-02-09] MEDS: BuPROPion HCL 100 MG SR TABLET PO SCH (09:33)
[2017-02-09] MEDS: LORazepam 2 MG TABLET PO SCH ×4 (09:37→21:00)
[2017-02-09 16:00] VITALS: BP 137/74
[2017-02-09 16:04] VITALS: BP 137/74
[2017-02-10 05:55] VITALS: BP 113/64
[2017-02-10 05:56] VITALS: BP 113/64
[2017-02-10] MEDS ORDERED: LORazepam 1 MG TABLET PO PRN (07:00)
[2017-02-10 08:32] VITALS: BP 104/60
[2017-02-10 09:00] VITALS: BP 112/73
[2017-02-10] MEDS: ARIPiprazole 10 MG TABLET PO SCH (09:00)
[2017-02-10] MEDS: BuPROPion HCL 100 MG SR TABLET PO SCH (09:01)
[2017-02-10] MEDS: LORazepam 1 MG TABLET PO SCH ×4 (09:07→20:41)
[2017-02-10 16:18] VITALS: BP 111/75
[2017-02-10 17:24] VITALS: BP 111/75
[2017-02-11] VITALS: BP 101/63
[2017-02-11 08:07] VITALS: BP 115/70
[2017-02-11] MEDS: BuPROPion HCL 100 MG SR TABLET PO SCH (08:52)
[2017-02-11] MEDS: ARIPiprazole 10 MG TABLET PO SCH (08:52)
[2017-02-11] MEDS: LORazepam 1 MG TABLET PO PRN ×3 (09:53→20:55)
[2017-02-11] MEDS ORDERED: ACETAMINOPHEN 650 MG/20.3 ML SOLUTION UDCUP PO PRN (10:30)
[2017-02-11 10:45] VITALS: BP 118/70
[2017-02-11] MEDS ORDERED: ACETAMINOPHEN 325 MG TABLET PO PRN (10:45)
[2017-02-11] MEDS: IBUPROFEN 600 MG TABLET PO PRN ×2 (10:45→20:50)
[2017-02-11 16:13] VITALS: BP 127/84
[2017-02-11 20:50] VITALS: BP 118/79
[2017-02-12 00:48] VITALS: BP 106/68
[2017-02-12 03:17] VITALS: BP 106/68
[2017-02-12] MEDS: LORazepam 1 MG TABLET PO PRN (03:39)
[2017-02-12 08:03] VITALS: BP 107/67
[2017-02-12] MEDS: BuPROPion HCL 100 MG SR TABLET PO SCH (08:20)
[2017-02-12] MEDS: ARIPiprazole 10 MG TABLET PO SCH (08:20)
[2017-02-12] MEDS: IBUPROFEN 600 MG TABLET PO PRN (08:21)
[2017-02-12] MEDS ORDERED: ARIP10TA8 PO (11:06)
[2017-02-12] MEDS ORDERED: BUPR100SR PO (11:07)
[2017-02-12 11:31] VITALS: BP 107/67
== END 2017-02-12 14:27 | DRG 885 ==
LOC: B2X 02-07 04:13
PROVIDERS: ADMIT Psychiatry & Neurology Psychiatry; ATTEND Psychiatry & Neurology Psychiatry
DX: F33.3 Major depressive disorder, recurrent, severe with psychotic symptoms (principal); R45.851 Suicidal ideations; Z91.19 Patient's noncompliance with other medical treatment and regimen; F41.9 Anxiety disorder, unspecified; F10.20 Alcohol dependence, uncomplicated; F60.3 Borderline personality disorder; I10 Essential (primary) hypertension; J44.9 Chronic obstructive pulmonary disease, unspecified; K21.9 Gastro-esophageal reflux disease without esophagitis; Z59.0 Homelessness; Z91.5 Personal history of self-harm
CPT/HCPCS: 83036; 84436; 84439; 84443; G0480

== ENCOUNTER 2017-02-15 16:32 | Inpatient (IN) | payer MEDICARE, MEDICAID ==
[~2017-02-15] VITALS: Ht 185.4 cm; Wt 103.1 kg
[~2017-02-15 16:32] MED LIST changes: +ARIP10TA8 PO; -BUPR-93 PO; +BUPR100SR PO; -QUET150T PO; -VITAD1000 PO
[2017-02-15] MEDS ORDERED: BUPR150SR PO (18:55)
[2017-02-15] MEDS ORDERED: LORazepam 2 MG TABLET PO PRN (19:00)
[2017-02-15] MEDS ORDERED: HALOPERIDOL 5 MG TABLET PO PRN (19:00)
[2017-02-15] MEDS ORDERED: ZOLPIDEM TARTRATE 10 MG TABLET PO PRN (19:00)
[2017-02-15 19:49] VITALS: BP 139/89
[2017-02-15] MEDS ORDERED: PNEUMOCOCCAL VACCINE POLYVALENT 0.5 ML VIAL [PPSV23] IM ONE (20:00)
[2017-02-15] MEDS ORDERED: INFLUENZA VIRUS VACCINE QVS 2017-18 (3YR+)/PF 60 MCG/0.5 ML SYRINGE IM ONE (20:00)
[2017-02-15 20:04] VITALS: BP 128/76
[2017-02-16 00:03] VITALS: BP 113/63
[2017-02-16 07:38] LABS: BASOPHILS % (AUTO) 0.4 % (0.0-2.0); EOSINOPHILS % (AUTO) 8.3 % (1.0-6.0); HEMATOCRIT 44.2 % (41-53); HEMOGLOBIN 15.2 g/dL (13.5-17.5); LYMPHOCYTES # (AUTO) 1.5 K/uL (1.0-4.8); LYMPHOCYTES % (AUTO) 26.8 % (22.0-44.0); MEAN CORPUSCULAR HEMOGLOBIN 31.2 pg (26.0-34.0); MEAN CORPUSCULAR HGB CONC 34.3 G/dL (31.0-37.0); MEAN CORPUSCULAR VOLUME 91 fL (80-100); MONOCYTES # (AUTO) 0.6 K/uL (0.1-1.0); MONOCYTES % (AUTO) 10.7 % (2.0-9.0); NEUTROPHILS # (AUTO) 3.1 K/uL (1.8-7.7); NEUTROPHILS % (AUTO) 53.8 % (40.0-70.0); PLATELET COUNT (AUTO) 274 K/uL (150-450); RED BLOOD CELL COUNT(AUTO) 4.87 MIL/uL (4.50-5.90); WHITE BLOOD COUNT (AUTO) 5.7 K/uL (4.5-11.0)
[2017-02-16 08:02] LABS: ALANINE AMINOTRANSFERASE 32 U/L (12-78); ALBUMIN 3.8 g/dL (3.4-5.0); ANION GAP 6 mmol/L (8-16); ASPARTATE AMINOTRANSFERASE 24 U/L (15-37); BILIRUBIN,TOTAL 0.7 mg/dL (0.1-1.0); CALCIUM, TOTAL 8.8 mg/dL (8.8-10.5); CARBON DIOXIDE 30 mmol/L (22-29); CHLORIDE 104 mmol/L (98-107); CHOL/HDL RATIO 4.5 (4.2-7.3); CREATININE 0.99 mg/dL (0.60-1.30); GLOMERULAR FILTR. RATE CALC > 60 mL/min (>60); POTASSIUM 4.2 mmol/L (3.5-5.1); SODIUM SERUM 140 mmol/L (136-145); THYROID STIMULATING HORMONE 1.87 uIU/mL (0.36-3.74); TOTAL PROTEIN, SERUM 7.4 g/dL (6.4-8.2); UREA NITROGEN, BLOOD 13 mg/dL (7-18)
[2017-02-16 08:10] LABS: HEMOGLOBIN A1C 6.2 % (4.5-6.2)
[2017-02-16 08:11] VITALS: BP 140/82
[2017-02-16] MEDS: BuPROPion HCL 150 MG SR TABLET PO SCH (08:42)
[2017-02-16] MEDS: LISINOPRIL 20 MG TABLET PO SCH (08:42)
[2017-02-16] MEDS ORDERED: ARIPiprazole 10 MG TABLET PO SCH (09:00)
[2017-02-16] MEDS ORDERED: ACETAMINOPHEN 325 MG TABLET PO PRN (10:15)
[2017-02-16 14:47] VITALS: BP 108/66
[2017-02-16 16:00] VITALS: BP 106/75
[2017-02-16 16:08] VITALS: BP 106/75
[2017-02-16 17:00] VITALS: BP 110/75
[2017-02-17] VITALS (7 sets, daily range): BP systolic 102–122; BP diastolic 62–82
[2017-02-17] MEDS ORDERED: LORazepam 2 MG TABLET PO PRN (07:00)
[2017-02-17] MEDS: LISINOPRIL 20 MG TABLET PO SCH (09:00)
[2017-02-17] MEDS: LORazepam 2 MG TABLET PO SCH ×4 (09:00→21:14)
[2017-02-17] MEDS: ARIPiprazole 10 MG TABLET PO SCH (09:16)
[2017-02-17] MEDS: BuPROPion HCL 150 MG SR TABLET PO SCH (09:16)
[2017-02-18] VITALS (7 sets, daily range): BP systolic 106–113; BP diastolic 61–65
[2017-02-18] MEDS: BuPROPion HCL 150 MG SR TABLET PO SCH (08:30)
[2017-02-18] MEDS: LORazepam 2 MG TABLET PO SCH ×4 (08:30→20:51)
[2017-02-18] MEDS: LISINOPRIL 20 MG TABLET PO SCH (08:30)
[2017-02-18] MEDS: ARIPiprazole 10 MG TABLET PO SCH (08:30)
[2017-02-19 00:03] VITALS: BP 112/65
[2017-02-19] MEDS ORDERED: LORazepam 1 MG TABLET PO PRN (07:00)
[2017-02-19 08:22] VITALS: BP 102/66
[2017-02-19] MEDS ORDERED: BuPROPion HCL XL 150 MG ER TABLET PO SCH (09:00)
[2017-02-19 09:30] VITALS: BP 115/72
[2017-02-19] MEDS: LISINOPRIL 20 MG TABLET PO SCH (09:31)
[2017-02-19] MEDS: LORazepam 1 MG TABLET PO SCH ×4 (09:31→20:49)
[2017-02-19 10:45] VITALS: BP 115/72
[2017-02-19 16:00] VITALS: BP 113/69
[2017-02-19 16:07] VITALS: BP 113/69
[2017-02-19] MEDS ORDERED: ARIPiprazole 10 MG TABLET PO SCH (21:00)
[2017-02-20 00:14] VITALS: BP 109/68
[2017-02-20 01:16] VITALS: BP 109/63
[2017-02-20] MEDS ORDERED: LORazepam 1 MG TABLET PO PRN (07:00)
[2017-02-20 08:13] VITALS: BP 102/57
[2017-02-20 08:14] VITALS: BP 102/57
[2017-02-20] MEDS ORDERED: LISI-662 PO (08:50)
[2017-02-20] MEDS ORDERED: BUPR-93 PO (08:50)
[2017-02-20] MEDS ORDERED: ARIP10TA8 PO (08:50)
[2017-02-20] MEDS: LISINOPRIL 20 MG TABLET PO SCH (09:00)
[2017-02-20] MEDS ORDERED: BuPROPion HCL XL 150 MG ER TABLET PO SCH (09:00)
== END 2017-02-20 09:50 | disposition home or self-care (01) | DRG 885 ==
LOC: B2X 19:47
PROVIDERS: ADMIT Psychiatry & Neurology Psychiatry; ATTEND Psychiatry & Neurology Psychiatry
PROC: 3E0234Z Introduction of Serum, Toxoid and Vaccine into Muscle, Percutaneous Approach (ICD-10-PCS; principal; 2017-02-15)
DX: F31.30 Bipolar disorder, current episode depressed, mild or moderate severity, unspecified (principal); R45.851 Suicidal ideations; Z91.19 Patient's noncompliance with other medical treatment and regimen; F41.9 Anxiety disorder, unspecified; G47.00 Insomnia, unspecified; Y90.9 Presence of alcohol in blood, level not specified; F60.3 Borderline personality disorder; F10.20 Alcohol dependence, uncomplicated; K21.9 Gastro-esophageal reflux disease without esophagitis; I10 Essential (primary) hypertension; J44.9 Chronic obstructive pulmonary disease, unspecified; Z59.0 Homelessness; Z91.5 Personal history of self-harm; Z23 Encounter for immunization
CPT/HCPCS: 83036; 84439; 84443; 87081

== ENCOUNTER 2017-05-09 20:00 | Inpatient (IN) | payer MEDICARE, MEDICAID ==
[~2017-05-09] VITALS: Ht 188 cm; Wt 113.4 kg
[~2017-05-09 20:00] MED LIST changes: +BUPR-93 PO; -BUPR100SR PO; +LISI-662 PO
[2017-05-09] MEDS ORDERED: CYANOCOBALAMIN 1,000 MCG/ML VIAL IM ONE (20:45)
[2017-05-09] MEDS ORDERED: LORazepam 2 MG TABLET PO PRN (20:45)
[2017-05-09] MEDS ORDERED: HydrOXYzine PAMOATE 50 MG CAPSULE PO PRN (20:45)
[2017-05-09] MEDS ORDERED: LOPERAMIDE HCL 2 MG CAPSULE PO PRN (20:45)
[2017-05-09] MEDS ORDERED: GuaiFENesin/D-METHORPHAN [SUGAR-FREE] 200-20MG/10 ML SYRUP UDCUP PO PRN (20:45)
[2017-05-09] MEDS ORDERED: ESZOPICLONE 2 MG TABLET PO PRN (20:45)
[2017-05-09 20:54] VITALS: BP 148/90
[2017-05-09 21:20] VITALS: BP 136/79
[2017-05-09] MEDS ORDERED: PNEUMOCOCCAL VACCINE POLYVALENT 0.5 ML VIAL [PPSV23] IM ONE (21:30)
[2017-05-09 22:20] VITALS: BP 117/70
[2017-05-09 23:20] VITALS: BP 120/80
[2017-05-10] VITALS (9 sets, daily range): BP systolic 115–142; BP diastolic 72–87
[2017-05-10] MEDS ORDERED: INFLUENZA VIRUS VACCINE QVS 2017-18 (3YR+)/PF 60 MCG/0.5 ML SYRINGE IM ONE (05:30)
[2017-05-10] MEDS ORDERED: LORazepam 2 MG TABLET PO PRN (07:00)
[2017-05-10 08:22] LABS: BASOPHILS % (AUTO) 0.8 % (0.0-2.0); EOSINOPHILS % (AUTO) 6.7 % (1.0-6.0); HEMATOCRIT 41.8 % (41-53); HEMOGLOBIN 14.5 g/dL (13.5-17.5); LYMPHOCYTES # (AUTO) 1.4 K/uL (1.0-4.8); LYMPHOCYTES % (AUTO) 26.9 % (22.0-44.0); MEAN CORPUSCULAR HEMOGLOBIN 31.4 pg (26.0-34.0); MEAN CORPUSCULAR HGB CONC 34.6 G/dL (31.0-37.0); MEAN CORPUSCULAR VOLUME 91 fL (80-100); MONOCYTES # (AUTO) 0.5 K/uL (0.1-1.0); MONOCYTES % (AUTO) 8.8 % (2.0-9.0); NEUTROPHILS % (AUTO) 56.8 % (40.0-70.0); PLATELET COUNT (AUTO) 252 K/uL (150-450); RED BLOOD CELL COUNT(AUTO) 4.61 MIL/uL (4.50-5.90); RED CELL DISTRIBUTION WIDTH 14.2 % (11.5-14.5)
[2017-05-10] MEDS: FOLIC ACID 1 MG TABLET PO SCH (08:34)
[2017-05-10] MEDS: MULTIVITAMINS WITH MINERALS, THERAPEUTIC TABLET PO SCH (08:34)
[2017-05-10] MEDS: CarBAMazepine 200 MG TABLET PO SCH ×2 (08:35→16:25)
[2017-05-10] MEDS: THIAMINE HCL 100 MG TABLET PO SCH ×2 (08:35→16:25)
[2017-05-10] MEDS: LORazepam 2 MG TABLET PO SCH ×4 (08:35→20:34)
[2017-05-10 09:33] LABS: ALANINE AMINOTRANSFERASE 80 U/L (12-78); ALKALINE PHOSPHATASE 74 U/L (46-116); ASPARTATE AMINOTRANSFERASE 39 U/L (15-37); BILIRUBIN,TOTAL 0.5 mg/dL (0.1-1.0); CALCIUM, TOTAL 8.3 mg/dL (8.8-10.5); CARBON DIOXIDE 27 mmol/L (22-29); CHOL/HDL RATIO 4.9 (4.2-7.3); CHOLESTEROL 232 mg/dL (131-200); CREATININE 1.05 mg/dL (0.60-1.30); FREE T4 (FREE THYROXINE) 0.82 ng/dL (0.76-1.46); GLOMERULAR FILTR. RATE CALC > 60 mL/min (>60); GLUCOSE,RANDOM 100 mg/dL (70-110); HDL CHOLESTEROL 47 mg/dL (40-60); LDL CHOL (CALC.) 127 mg/dL (0-130); THYROID STIMULATING HORMONE 2.93 uIU/mL (0.36-3.74); TOTAL PROTEIN, SERUM 6.3 g/dL (6.4-8.2); TRIGLYCERIDES 290 mg/dL (15-150); UREA NITROGEN, BLOOD 13 mg/dL (7-18)
[2017-05-10 09:36] LABS: ANION GAP 7 mmol/L (8-16); CHLORIDE 106 mmol/L (98-107); SODIUM SERUM 140 mmol/L (136-145)
[2017-05-10] MEDS ORDERED: BENZOCAINE/MENTHOL LOZENGE MM PRN (22:30)
[2017-05-10] MEDS ORDERED: ALBUTEROL SULFATE HFA 90 MCG/PUFF 8 GM INHALER IH PRN (22:30)
[2017-05-10] MEDS ORDERED: LOPERAMIDE HCL 2 MG CAPSULE PO PRN (22:30)
[2017-05-10] MEDS ORDERED: ACETAMINOPHEN 325 MG TABLET PO PRN (22:30)
[2017-05-10] MEDS ORDERED: MAG HYDROX/AL HYDROX/SIMETH ES 30 ML SUSPENSION UDCUP PO PRN (22:30)
[2017-05-10] MEDS ORDERED: ONDANSETRON HCL 4 MG TABLET PO PRN (22:30)
[2017-05-10] MEDS ORDERED: MAGNESIUM HYDROXIDE SUSPENSION 30 ML UDCUP PO PRN (22:30)
[2017-05-10] MEDS ORDERED: PETROLATUM,WHITE 71 GM JELLY TP PRN (22:30)
[2017-05-10] MEDS ORDERED: IBUPROFEN 600 MG TABLET PO PRN (22:30)
[2017-05-10] MEDS ORDERED: BACITRACIN 28.4 GM OINTMENT TP PRN (22:30)
[2017-05-10] MEDS ORDERED: CloNIDine HCL 0.1 MG TABLET PO PRN (22:30)
[2017-05-11 06:04] VITALS: BP 112/71
[2017-05-11 06:06] VITALS: BP 112/71
[2017-05-11 08:19] VITALS: BP 105/80
[2017-05-11 09:05] VITALS: BP 123/87
[2017-05-11] MEDS: OMEPRAZOLE 20 MG CAPSULE PO SCH (09:05)
[2017-05-11] MEDS: CarBAMazepine 200 MG TABLET PO SCH ×2 (09:05→16:49)
[2017-05-11] MEDS: MULTIVITAMINS WITH MINERALS, THERAPEUTIC TABLET PO SCH (09:05)
[2017-05-11] MEDS: THIAMINE HCL 100 MG TABLET PO SCH ×2 (09:05→16:49)
[2017-05-11] MEDS: DOCUSATE SODIUM 100 MG CAPSULE PO SCH (09:05)
[2017-05-11] MEDS: LORazepam 2 MG TABLET PO SCH ×4 (09:05→20:55)
[2017-05-11] MEDS: OMEGA-3/DHA/EPA/FISH OIL 1,000 MG CAPSULE PO SCH (09:05)
[2017-05-11] MEDS: FOLIC ACID 1 MG TABLET PO SCH (09:05)
[2017-05-11 16:16] VITALS: BP 118/65
[2017-05-11 16:17] VITALS: BP 118/65
[2017-05-12 05:42] VITALS: BP 113/67
[2017-05-12 05:43] VITALS: BP 113/67
[2017-05-12] MEDS ORDERED: LORazepam 1 MG TABLET PO PRN (07:00)
[2017-05-12 08:19] VITALS: BP 119/74
[2017-05-12] MEDS: FOLIC ACID 1 MG TABLET PO SCH (08:37)
[2017-05-12] MEDS: MULTIVITAMINS WITH MINERALS, THERAPEUTIC TABLET PO SCH (08:37)
[2017-05-12] MEDS: CarBAMazepine 200 MG TABLET PO SCH ×2 (08:37→16:38)
[2017-05-12] MEDS: THIAMINE HCL 100 MG TABLET PO SCH ×2 (08:37→16:38)
[2017-05-12] MEDS: LORazepam 1 MG TABLET PO SCH ×4 (08:37→21:00)
[2017-05-12] MEDS: DOCUSATE SODIUM 100 MG CAPSULE PO SCH (08:37)
[2017-05-12] MEDS: OMEPRAZOLE 20 MG CAPSULE PO SCH (08:37)
[2017-05-12] MEDS: OMEGA-3/DHA/EPA/FISH OIL 1,000 MG CAPSULE PO SCH (08:37)
[2017-05-12 16:00] VITALS: BP 123/83
[2017-05-12 16:08] VITALS: BP 123/83
[2017-05-13 01:28] VITALS: BP 102/65
[2017-05-13 01:29] VITALS: BP 102/65
[2017-05-13] MEDS ORDERED: LORazepam 1 MG TABLET PO PRN (07:00)
[2017-05-13 08:15] VITALS: BP 109/64
[2017-05-13] MEDS: OMEGA-3/DHA/EPA/FISH OIL 1,000 MG CAPSULE PO SCH (09:23)
[2017-05-13] MEDS: FOLIC ACID 1 MG TABLET PO SCH (09:23)
[2017-05-13] MEDS: DOCUSATE SODIUM 100 MG CAPSULE PO SCH (09:23)
[2017-05-13] MEDS: MULTIVITAMINS WITH MINERALS, THERAPEUTIC TABLET PO SCH (09:24)
[2017-05-13] MEDS: CarBAMazepine 200 MG TABLET PO SCH ×2 (09:24→17:08)
[2017-05-13] MEDS: OMEPRAZOLE 20 MG CAPSULE PO SCH (09:24)
[2017-05-13] MEDS: BuPROPion HCL XL 150 MG ER TABLET PO SCH (09:25)
[2017-05-13] MEDS: THIAMINE HCL 100 MG TABLET PO SCH ×2 (09:25→17:08)
[2017-05-13 11:27] VITALS: BP 102/65
[2017-05-13 16:00] VITALS: BP 119/80
[2017-05-13 16:06] VITALS: BP 119/80
[2017-05-13] MEDS: QUEtiapine FUMARATE 50 MG ER TABLET PO SCH (20:33)
[2017-05-14 02:20] VITALS: BP 101/62
[2017-05-14 02:21] VITALS: BP 101/62
[2017-05-14 08:58] VITALS: BP 110/55
[2017-05-14] MEDS: BuPROPion HCL XL 150 MG ER TABLET PO SCH (08:59)
[2017-05-14] MEDS: OMEPRAZOLE 20 MG CAPSULE PO SCH (08:59)
[2017-05-14] MEDS: OMEGA-3/DHA/EPA/FISH OIL 1,000 MG CAPSULE PO SCH (08:59)
[2017-05-14] MEDS: THIAMINE HCL 100 MG TABLET PO SCH ×2 (08:59→16:12)
[2017-05-14] MEDS: CarBAMazepine 200 MG TABLET PO SCH ×2 (08:59→16:12)
[2017-05-14] MEDS: FOLIC ACID 1 MG TABLET PO SCH (08:59)
[2017-05-14] MEDS: DOCUSATE SODIUM 100 MG CAPSULE PO SCH (08:59)
[2017-05-14] MEDS: MULTIVITAMINS WITH MINERALS, THERAPEUTIC TABLET PO SCH (08:59)
[2017-05-14 16:05] VITALS: BP 122/75
[2017-05-14] MEDS: QUEtiapine FUMARATE 50 MG ER TABLET PO SCH (20:32)
[2017-05-15 01:50] VITALS: BP_SYST 103; BP_SYST 108; BP_DIAS 71
[2017-05-15] MEDS: ZOLPIDEM TARTRATE 10 MG TABLET PO PRN (01:56)
[2017-05-15 08:00] VITALS: BP 116/65
[2017-05-15] MEDS: BuPROPion HCL XL 150 MG ER TABLET PO SCH (08:13)
[2017-05-15] MEDS: OMEGA-3/DHA/EPA/FISH OIL 1,000 MG CAPSULE PO SCH (08:13)
[2017-05-15] MEDS: DOCUSATE SODIUM 100 MG CAPSULE PO SCH (08:13)
[2017-05-15] MEDS: THIAMINE HCL 100 MG TABLET PO SCH ×2 (08:13→16:34)
[2017-05-15] MEDS: OMEPRAZOLE 20 MG CAPSULE PO SCH (08:14)
[2017-05-15] MEDS: FOLIC ACID 1 MG TABLET PO SCH (08:14)
[2017-05-15] MEDS: CarBAMazepine 200 MG TABLET PO SCH ×2 (08:14→16:34)
[2017-05-15] MEDS: MULTIVITAMINS WITH MINERALS, THERAPEUTIC TABLET PO SCH (08:14)
[2017-05-15 16:19] VITALS: BP 128/83
[2017-05-15] MEDS: QUEtiapine FUMARATE 50 MG ER TABLET PO SCH (20:28)
[2017-05-16 06:55] VITALS: BP 102/65
[2017-05-16] MEDS: FOLIC ACID 1 MG TABLET PO SCH (08:11)
[2017-05-16] MEDS: OMEPRAZOLE 20 MG CAPSULE PO SCH (08:11)
[2017-05-16] MEDS: OMEGA-3/DHA/EPA/FISH OIL 1,000 MG CAPSULE PO SCH (08:11)
[2017-05-16] MEDS: CarBAMazepine 100 MG CHEWABLE TABLET PO SCH ×2 (08:11→16:31)
[2017-05-16] MEDS: MULTIVITAMINS WITH MINERALS, THERAPEUTIC TABLET PO SCH (08:11)
[2017-05-16] MEDS: THIAMINE HCL 100 MG TABLET PO SCH ×2 (08:11→16:31)
[2017-05-16] MEDS: DOCUSATE SODIUM 100 MG CAPSULE PO SCH (08:12)
[2017-05-16] MEDS: BuPROPion HCL XL 150 MG ER TABLET PO SCH (08:12)
[2017-05-16 08:40] VITALS: BP 125/78
[2017-05-16 16:03] VITALS: BP 119/68
[2017-05-16] MEDS: QUEtiapine FUMARATE 50 MG ER TABLET PO SCH (20:36)
[2017-05-16] MEDS: ZOLPIDEM TARTRATE 10 MG TABLET PO PRN (23:28)
[2017-05-17 06:45] VITALS: BP 107/64
[2017-05-17] MEDS: CarBAMazepine 100 MG CHEWABLE TABLET PO SCH (08:12)
[2017-05-17] MEDS: FOLIC ACID 1 MG TABLET PO SCH (08:12)
[2017-05-17] MEDS: MULTIVITAMINS WITH MINERALS, THERAPEUTIC TABLET PO SCH (08:12)
[2017-05-17] MEDS: DOCUSATE SODIUM 100 MG CAPSULE PO SCH (08:12)
[2017-05-17] MEDS: OMEPRAZOLE 20 MG CAPSULE PO SCH (08:12)
[2017-05-17] MEDS: OMEGA-3/DHA/EPA/FISH OIL 1,000 MG CAPSULE PO SCH (08:12)
[2017-05-17] MEDS: THIAMINE HCL 100 MG TABLET PO SCH ×2 (08:12→16:12)
[2017-05-17 08:13] VITALS: BP 119/68
[2017-05-17] MEDS: BuPROPion HCL XL 150 MG ER TABLET PO SCH (08:13)
[2017-05-17 16:00] VITALS: BP 134/88
[2017-05-17] MEDS: QUEtiapine FUMARATE 50 MG ER TABLET PO SCH (20:04)
[2017-05-17] MEDS: ZOLPIDEM TARTRATE 10 MG TABLET PO PRN (22:46)
[2017-05-18 01:39] VITALS: BP 116/65
[2017-05-18] MEDS: OMEPRAZOLE 20 MG CAPSULE PO SCH (08:05)
[2017-05-18] MEDS: DOCUSATE SODIUM 100 MG CAPSULE PO SCH (08:05)
[2017-05-18] MEDS: BuPROPion HCL XL 150 MG ER TABLET PO SCH (08:06)
[2017-05-18] MEDS: OMEGA-3/DHA/EPA/FISH OIL 1,000 MG CAPSULE PO SCH (08:06)
[2017-05-18] MEDS: MULTIVITAMINS WITH MINERALS, THERAPEUTIC TABLET PO SCH (08:06)
[2017-05-18] MEDS: THIAMINE HCL 100 MG TABLET PO SCH ×2 (08:06→16:13)
[2017-05-18] MEDS: FOLIC ACID 1 MG TABLET PO SCH (08:06)
[2017-05-18 08:29] VITALS: BP 121/70
[2017-05-18 16:06] VITALS: BP 128/89
[2017-05-18] MEDS: QUEtiapine FUMARATE 50 MG ER TABLET PO SCH (20:15)
[2017-05-18] MEDS: ZOLPIDEM TARTRATE 10 MG TABLET PO PRN (22:24)
[2017-05-19 06:14] VITALS: BP 108/66
[2017-05-19] MEDS: OMEGA-3/DHA/EPA/FISH OIL 1,000 MG CAPSULE PO SCH (08:20)
[2017-05-19] MEDS: FOLIC ACID 1 MG TABLET PO SCH (08:20)
[2017-05-19] MEDS: MULTIVITAMINS WITH MINERALS, THERAPEUTIC TABLET PO SCH (08:20)
[2017-05-19] MEDS: THIAMINE HCL 100 MG TABLET PO SCH (08:20)
[2017-05-19] MEDS: BuPROPion HCL XL 150 MG ER TABLET PO SCH (08:20)
[2017-05-19] MEDS: DOCUSATE SODIUM 100 MG CAPSULE PO SCH (08:20)
[2017-05-19] MEDS: OMEPRAZOLE 20 MG CAPSULE PO SCH (08:20)
[2017-05-19 08:31] VITALS: BP 118/68
[2017-05-19 16:21] VITALS: BP 136/76
[2017-05-19] MEDS: QUEtiapine FUMARATE 50 MG ER TABLET PO SCH (20:34)
[2017-05-20 06:44] VITALS: BP 114/63
[2017-05-20 08:23] VITALS: BP 112/67
[2017-05-20] MEDS: OMEPRAZOLE 20 MG CAPSULE PO SCH (08:30)
[2017-05-20] MEDS: OMEGA-3/DHA/EPA/FISH OIL 1,000 MG CAPSULE PO SCH (08:30)
[2017-05-20] MEDS: BuPROPion HCL XL 150 MG ER TABLET PO SCH (08:30)
[2017-05-20] MEDS: DOCUSATE SODIUM 100 MG CAPSULE PO SCH (08:30)
[2017-05-20] MEDS: MULTIVITAMINS WITH MINERALS, THERAPEUTIC TABLET PO SCH (08:30)
[2017-05-20 16:00] VITALS: BP 124/85
[2017-05-20] MEDS: QUEtiapine FUMARATE 50 MG ER TABLET PO SCH (21:32)
[2017-05-21 06:34] VITALS: BP 106/60
[2017-05-21] MEDS: DOCUSATE SODIUM 100 MG CAPSULE PO SCH (08:33)
[2017-05-21] MEDS: MULTIVITAMINS WITH MINERALS, THERAPEUTIC TABLET PO SCH (08:33)
[2017-05-21] MEDS: BuPROPion HCL XL 150 MG ER TABLET PO SCH (08:33)
[2017-05-21] MEDS: OMEGA-3/DHA/EPA/FISH OIL 1,000 MG CAPSULE PO SCH (08:33)
[2017-05-21] MEDS: OMEPRAZOLE 20 MG CAPSULE PO SCH (08:33)
[2017-05-21 08:40] VITALS: BP 110/70
[2017-05-21 16:37] VITALS: BP 138/76
[2017-05-21] MEDS: QUEtiapine FUMARATE 50 MG ER TABLET PO SCH (20:35)
[2017-05-22 03:02] VITALS: BP 118/75
[2017-05-22 08:06] VITALS: BP 107/61
[2017-05-22] MEDS: MULTIVITAMINS WITH MINERALS, THERAPEUTIC TABLET PO SCH (08:28)
[2017-05-22] MEDS: OMEPRAZOLE 20 MG CAPSULE PO SCH (08:28)
[2017-05-22] MEDS: NALTREXONE HCL 50 MG TABLET PO SCH (08:28)
[2017-05-22] MEDS: OMEGA-3/DHA/EPA/FISH OIL 1,000 MG CAPSULE PO SCH (08:28)
[2017-05-22] MEDS: DOCUSATE SODIUM 100 MG CAPSULE PO SCH (08:28)
[2017-05-22] MEDS: BuPROPion HCL XL 150 MG ER TABLET PO SCH (08:28)
[2017-05-22 16:24] VITALS: BP 138/84
[2017-05-22] MEDS: QUEtiapine FUMARATE 50 MG ER TABLET PO SCH (20:38)
[2017-05-23 06:46] VITALS: BP 102/68
[2017-05-23] MEDS: BuPROPion HCL XL 150 MG ER TABLET PO SCH (08:16)
[2017-05-23] MEDS: OMEPRAZOLE 20 MG CAPSULE PO SCH (08:16)
[2017-05-23] MEDS: MULTIVITAMINS WITH MINERALS, THERAPEUTIC TABLET PO SCH (08:17)
[2017-05-23] MEDS: DOCUSATE SODIUM 100 MG CAPSULE PO SCH (08:17)
[2017-05-23] MEDS: OMEGA-3/DHA/EPA/FISH OIL 1,000 MG CAPSULE PO SCH (08:17)
[2017-05-23] MEDS: NALTREXONE HCL 50 MG TABLET PO SCH (08:17)
[2017-05-23 08:22] VITALS: BP 121/75
[2017-05-23] MEDS ORDERED: OMEP20 PO (11:22)
[2017-05-23] MEDS ORDERED: QUET50XR PO (11:22)
[2017-05-23] MEDS ORDERED: OMEG-135 PO (11:22)
[2017-05-23] MEDS ORDERED: DSS100 PO (11:22)
[2017-05-23] MEDS ORDERED: BUPR-93 PO (11:22)
[2017-05-23] MEDS ORDERED: NALT50TA6 PO (11:23)
== END 2017-05-23 13:10 | disposition home or self-care (01) | DRG 885 ==
LOC: EDSTATUS 20:52 → B2X 21:08
PROVIDERS: ADMIT Psychiatry & Neurology Psychiatry; ATTEND Psychiatry & Neurology Psychiatry
DX: F31.30 Bipolar disorder, current episode depressed, mild or moderate severity, unspecified (principal); B15.9 Hepatitis A without hepatic coma; F10.220 Alcohol dependence with intoxication, uncomplicated; R45.851 Suicidal ideations; F25.9 Schizoaffective disorder, unspecified; E78.5 Hyperlipidemia, unspecified; R51 Headache; K21.9 Gastro-esophageal reflux disease without esophagitis; J44.9 Chronic obstructive pulmonary disease, unspecified; E55.9 Vitamin D deficiency, unspecified; G47.00 Insomnia, unspecified; E78.1 Pure hyperglyceridemia; F17.210 Nicotine dependence, cigarettes, uncomplicated; Z91.14 Patient's other noncompliance with medication regimen; Z91.19 Patient's noncompliance with other medical treatment and regimen; Z59.0 Homelessness; Z79.899 Other long term (current) drug therapy; Z28.21 Immunization not carried out because of patient refusal
CPT/HCPCS: 80074; 82306; 84439; 84443; 90471; 96372; 99285; J3420

== ENCOUNTER 2017-09-06 11:47 | Inpatient (IN) | payer MEDICARE, MEDICAID ==
[~2017-09-06] VITALS: Ht 188 cm; Wt 96.7 kg
[~2017-09-06 11:47] MED LIST changes: -ARIP10TA8 PO; +DSS100 PO; -LISI-662 PO; +NALT50TA6 PO; +OMEG-135 PO; +OMEP20 PO; +QUET50XR PO
[2017-09-06] MEDS ORDERED: LOPERAMIDE HCL 2 MG CAPSULE PO PRN (13:15)
[2017-09-06] MEDS ORDERED: PROMETHAZINE HCL 25 MG TABLET PO PRN (13:15)
[2017-09-06] MEDS ORDERED: HydrOXYzine PAMOATE 50 MG CAPSULE PO PRN (13:15)
[2017-09-06] MEDS ORDERED: CYANOCOBALAMIN 1,000 MCG/ML VIAL IM ONE (13:15)
[2017-09-06] MEDS ORDERED: ESZOPICLONE 2 MG TABLET PO PRN (13:15)
[2017-09-06] MEDS ORDERED: LORazepam 2 MG TABLET PO PRN (13:15)
[2017-09-06] MEDS ORDERED: GuaiFENesin/D-METHORPHAN [SUGAR-FREE] 200-20MG/10 ML SYRUP UDCUP PO PRN (13:15)
[2017-09-06 14:03] VITALS: BP 135/72
[2017-09-06] MEDS ORDERED: PNEUMOCOCCAL VACCINE POLYVALENT 0.5 ML VIAL [PPSV23] IM ONE (14:15)
[2017-09-06] MEDS: MULTIVITAMINS WITH MINERALS, THERAPEUTIC TABLET PO SCH (14:28)
[2017-09-06] MEDS: THIAMINE HCL 100 MG TABLET PO SCH ×2 (14:28→16:36)
[2017-09-06] MEDS: FOLIC ACID 1 MG TABLET PO SCH (14:28)
[2017-09-06 14:32] VITALS: BP 135/76
[2017-09-06 15:08] VITALS: BP 126/80
[2017-09-06 16:00] VITALS: BP 134/76
[2017-09-06] MEDS: CarBAMazepine 200 MG TABLET PO SCH (16:36)
[2017-09-06 17:00] VITALS: BP 141/86
[2017-09-06 21:00] VITALS: BP 136/75
[2017-09-07] VITALS (7 sets, daily range): BP systolic 116–140; BP diastolic 65–82
[2017-09-07] MEDS ORDERED: LORazepam 2 MG TABLET PO PRN (07:00)
[2017-09-07 07:19] LABS: EOSINOPHILS % (AUTO) 8.1 % (1.0-6.0); HEMATOCRIT 40.6 % (41-53); LYMPHOCYTES # (AUTO) 1.5 K/uL (1.0-4.8); LYMPHOCYTES % (AUTO) 31.3 % (22.0-44.0); MEAN CORPUSCULAR HEMOGLOBIN 31.7 pg (26.0-34.0); MEAN CORPUSCULAR HGB CONC 34.6 G/dL (31.0-37.0); MEAN CORPUSCULAR VOLUME 92 fL (80-100); MONOCYTES # (AUTO) 0.5 K/uL (0.1-1.0); MONOCYTES % (AUTO) 9.3 % (2.0-9.0); NEUTROPHILS # (AUTO) 2.4 K/uL (1.8-7.7); NEUTROPHILS % (AUTO) 50.3 % (40.0-70.0); PLATELET COUNT (AUTO) 260 K/uL (150-450); RED BLOOD CELL COUNT(AUTO) 4.42 MIL/uL (4.50-5.90)
[2017-09-07 07:53] LABS: ALANINE AMINOTRANSFERASE 28 U/L (12-78); ALBUMIN 2.7 g/dL (3.4-5.0); ALKALINE PHOSPHATASE 74 U/L (46-116); ANION GAP 4 mmol/L (8-16); ASPARTATE AMINOTRANSFERASE 20 U/L (15-37); BILIRUBIN,TOTAL 0.3 mg/dL (0.1-1.0); CALCIUM, TOTAL 8.2 mg/dL (8.8-10.5); CARBON DIOXIDE 31 mmol/L (22-29); CHLORIDE 104 mmol/L (98-107); CHOL/HDL RATIO 4.6 (4.2-7.3); CHOLESTEROL 205 mg/dL (131-200); CREATININE 0.87 mg/dL (0.60-1.30); GLOMERULAR FILTR. RATE CALC > 60 mL/min (>60); GLUCOSE,RANDOM 87 mg/dL (70-110); HDL CHOLESTEROL 45 mg/dL (40-60); LDL CHOL (CALC.) 120 mg/dL (0-130); POTASSIUM 4.6 mmol/L (3.5-5.1); SODIUM SERUM 139 mmol/L (136-145); TOTAL PROTEIN, SERUM 5.8 g/dL (6.4-8.2); TRIGLYCERIDES 200 mg/dL (15-150); UREA NITROGEN, BLOOD 14 mg/dL (7-18)
[2017-09-07 07:57] LABS: HEMOGLOBIN A1C 5.4 % (4.5-6.2)
[2017-09-07] MEDS: FOLIC ACID 1 MG TABLET PO SCH (08:17)
[2017-09-07] MEDS: MULTIVITAMINS WITH MINERALS, THERAPEUTIC TABLET PO SCH (08:17)
[2017-09-07] MEDS: CarBAMazepine 200 MG TABLET PO SCH ×2 (08:17→16:49)
[2017-09-07] MEDS: THIAMINE HCL 100 MG TABLET PO SCH ×2 (08:17→16:49)
[2017-09-07] MEDS: LORazepam 2 MG TABLET PO SCH ×4 (08:17→21:01)
[2017-09-07 12:07] LABS: FREE T4 (FREE THYROXINE) 0.61 ng/dL (0.76-1.46); THYROID STIMULATING HORMONE 3.67 uIU/mL (0.36-3.74)
[2017-09-07] MEDS ORDERED: MAGNESIUM HYDROXIDE SUSPENSION 30 ML UDCUP PO PRN (15:30)
[2017-09-07] MEDS ORDERED: ALBUTEROL SULFATE HFA 90 MCG/PUFF 8 GM INHALER IH PRN (15:30)
[2017-09-08 06:29] VITALS: BP 128/66
[2017-09-08 06:31] VITALS: BP 128/66
[2017-09-08 08:00] VITALS: BP 123/68
[2017-09-08 08:30] VITALS: BP 123/68
[2017-09-08] MEDS: FOLIC ACID 1 MG TABLET PO SCH (08:35)
[2017-09-08] MEDS: MULTIVITAMINS WITH MINERALS, THERAPEUTIC TABLET PO SCH (08:35)
[2017-09-08] MEDS: THIAMINE HCL 100 MG TABLET PO SCH ×2 (08:35→16:41)
[2017-09-08] MEDS: CarBAMazepine 200 MG TABLET PO SCH ×2 (08:35→16:41)
[2017-09-08] MEDS: LORazepam 2 MG TABLET PO SCH ×4 (08:35→20:40)
[2017-09-08] MEDS: CHOLECALCIFEROL (VIT D3) 1,000 UNITS TABLET PO SCH (08:35)
[2017-09-08] MEDS: OMEGA-3/DHA/EPA/FISH OIL 1,000 MG CAPSULE PO SCH (08:35)
[2017-09-08] MEDS: NICOTINE 21 MG/24 HOUR PATCH TD SCH (08:42)
[2017-09-08 16:23] VITALS: BP 117/67
[2017-09-08 16:59] VITALS: BP 117/67
[2017-09-09 06:44] VITALS: BP 110/67
[2017-09-09 06:45] VITALS: BP 110/67
[2017-09-09] MEDS ORDERED: LORazepam 1 MG TABLET PO PRN (07:00)
[2017-09-09] MEDS: FOLIC ACID 1 MG TABLET PO SCH (08:24)
[2017-09-09] MEDS: THIAMINE HCL 100 MG TABLET PO SCH ×2 (08:24→16:42)
[2017-09-09] MEDS: OMEGA-3/DHA/EPA/FISH OIL 1,000 MG CAPSULE PO SCH (08:24)
[2017-09-09] MEDS: MULTIVITAMINS WITH MINERALS, THERAPEUTIC TABLET PO SCH (08:24)
[2017-09-09] MEDS: CHOLECALCIFEROL (VIT D3) 1,000 UNITS TABLET PO SCH (08:24)
[2017-09-09] MEDS: BuPROPion HCL XL 150 MG ER TABLET PO SCH (08:24)
[2017-09-09] MEDS: CarBAMazepine 200 MG TABLET PO SCH ×2 (08:24→16:42)
[2017-09-09 08:25] VITALS: BP 113/69
[2017-09-09] MEDS: LORazepam 1 MG TABLET PO SCH ×4 (08:25→20:47)
[2017-09-09] MEDS: NICOTINE 21 MG/24 HOUR PATCH TD SCH (08:30)
[2017-09-09 09:59] VITALS: BP 103/61
[2017-09-09 16:17] VITALS: BP 119/70
[2017-09-09 17:01] VITALS: BP 119/70
[2017-09-10 06:25] VITALS: BP 108/68
[2017-09-10] MEDS ORDERED: LORazepam 1 MG TABLET PO PRN (07:00)
[2017-09-10 08:00] VITALS: BP 102/62
[2017-09-10] MEDS: OMEGA-3/DHA/EPA/FISH OIL 1,000 MG CAPSULE PO SCH (08:50)
[2017-09-10] MEDS: THIAMINE HCL 100 MG TABLET PO SCH ×2 (08:50→16:33)
[2017-09-10] MEDS: MULTIVITAMINS WITH MINERALS, THERAPEUTIC TABLET PO SCH (08:50)
[2017-09-10] MEDS: CHOLECALCIFEROL (VIT D3) 1,000 UNITS TABLET PO SCH (08:51)
[2017-09-10] MEDS: BuPROPion HCL XL 150 MG ER TABLET PO SCH (08:51)
[2017-09-10] MEDS: CarBAMazepine 200 MG TABLET PO SCH ×2 (08:51→16:33)
[2017-09-10] MEDS: FOLIC ACID 1 MG TABLET PO SCH (08:51)
[2017-09-10] MEDS: NICOTINE 21 MG/24 HOUR PATCH TD SCH (08:52)
[2017-09-10 10:09] VITALS: BP 112/70
[2017-09-10 16:11] VITALS: BP 105/60
[2017-09-11 06:43] VITALS: BP 108/60
[2017-09-11 06:45] VITALS: BP 108/60
[2017-09-11 08:00] VITALS: BP 112/70
[2017-09-11] MEDS: CHOLECALCIFEROL (VIT D3) 1,000 UNITS TABLET PO SCH (08:32)
[2017-09-11] MEDS: OMEGA-3/DHA/EPA/FISH OIL 1,000 MG CAPSULE PO SCH (08:32)
[2017-09-11] MEDS: FOLIC ACID 1 MG TABLET PO SCH (08:32)
[2017-09-11] MEDS: THIAMINE HCL 100 MG TABLET PO SCH ×2 (08:32→16:46)
[2017-09-11] MEDS: BuPROPion HCL XL 150 MG ER TABLET PO SCH (08:32)
[2017-09-11] MEDS: MULTIVITAMINS WITH MINERALS, THERAPEUTIC TABLET PO SCH (08:32)
[2017-09-11] MEDS: CarBAMazepine 200 MG TABLET PO SCH ×2 (08:32→16:46)
[2017-09-11 10:40] VITALS: BP 106/59
[2017-09-11 16:19] VITALS: BP 119/72
[2017-09-12 07:07] VITALS: BP 107/74
[2017-09-12 08:00] VITALS: BP 110/67
[2017-09-12] MEDS: THIAMINE HCL 100 MG TABLET PO SCH ×2 (08:18→16:20)
[2017-09-12] MEDS: MULTIVITAMINS WITH MINERALS, THERAPEUTIC TABLET PO SCH (08:18)
[2017-09-12] MEDS: FOLIC ACID 1 MG TABLET PO SCH (08:18)
[2017-09-12] MEDS: OMEGA-3/DHA/EPA/FISH OIL 1,000 MG CAPSULE PO SCH (08:18)
[2017-09-12] MEDS: BuPROPion HCL XL 150 MG ER TABLET PO SCH (08:18)
[2017-09-12] MEDS: CHOLECALCIFEROL (VIT D3) 1,000 UNITS TABLET PO SCH (08:18)
[2017-09-12] MEDS: CarBAMazepine 200 MG TABLET PO SCH ×2 (08:18→16:20)
[2017-09-12 16:13] VITALS: BP 118/79
[2017-09-12] MEDS: QUEtiapine FUMARATE 50 MG ER TABLET PO SCH (21:03)
[2017-09-13 07:32] VITALS: BP 100/60
[2017-09-13] MEDS: MULTIVITAMINS WITH MINERALS, THERAPEUTIC TABLET PO SCH (08:30)
[2017-09-13] MEDS: THIAMINE HCL 100 MG TABLET PO SCH ×2 (08:30→16:35)
[2017-09-13] MEDS: CHOLECALCIFEROL (VIT D3) 1,000 UNITS TABLET PO SCH (08:30)
[2017-09-13] MEDS: OMEGA-3/DHA/EPA/FISH OIL 1,000 MG CAPSULE PO SCH (08:30)
[2017-09-13] MEDS: FOLIC ACID 1 MG TABLET PO SCH (08:30)
[2017-09-13] MEDS: BuPROPion HCL XL 150 MG ER TABLET PO SCH (08:30)
[2017-09-13] MEDS: CarBAMazepine 200 MG TABLET PO SCH ×2 (08:30→16:35)
[2017-09-13 08:35] VITALS: BP 112/63
[2017-09-13 16:27] VITALS: BP 107/65
[2017-09-13] MEDS: QUEtiapine FUMARATE 50 MG ER TABLET PO SCH (20:45)
[2017-09-14 06:14] VITALS: BP 105/60
[2017-09-14 08:27] VITALS: BP 104/72
[2017-09-14] MEDS: OMEGA-3/DHA/EPA/FISH OIL 1,000 MG CAPSULE PO SCH (08:41)
[2017-09-14] MEDS: BuPROPion HCL XL 150 MG ER TABLET PO SCH (08:42)
[2017-09-14] MEDS: CarBAMazepine 200 MG TABLET PO SCH ×2 (08:42→16:30)
[2017-09-14] MEDS: THIAMINE HCL 100 MG TABLET PO SCH ×2 (08:42→16:29)
[2017-09-14] MEDS: MULTIVITAMINS WITH MINERALS, THERAPEUTIC TABLET PO SCH (08:43)
[2017-09-14] MEDS: CHOLECALCIFEROL (VIT D3) 1,000 UNITS TABLET PO SCH (08:43)
[2017-09-14] MEDS: FOLIC ACID 1 MG TABLET PO SCH (08:43)
[2017-09-14 16:07] VITALS: BP 110/65
[2017-09-14] MEDS: QUEtiapine FUMARATE 50 MG ER TABLET PO SCH (20:42)
[2017-09-15 06:18] VITALS: BP 118/76
[2017-09-15] MEDS: FOLIC ACID 1 MG TABLET PO SCH (08:21)
[2017-09-15] MEDS: THIAMINE HCL 100 MG TABLET PO SCH ×3 (08:21→17:13)
[2017-09-15] MEDS: MULTIVITAMINS WITH MINERALS, THERAPEUTIC TABLET PO SCH (08:21)
[2017-09-15] MEDS: BuPROPion HCL XL 150 MG ER TABLET PO SCH (08:21)
[2017-09-15] MEDS: OMEGA-3/DHA/EPA/FISH OIL 1,000 MG CAPSULE PO SCH (08:21)
[2017-09-15] MEDS: CHOLECALCIFEROL (VIT D3) 1,000 UNITS TABLET PO SCH (08:21)
[2017-09-15 08:34] VITALS: BP 107/66
[2017-09-15] MEDS ORDERED: CarBAMazepine 200 MG TABLET PO ONE (09:00)
[2017-09-15 16:06] VITALS: BP 132/84
[2017-09-15] MEDS: QUEtiapine FUMARATE 50 MG ER TABLET PO SCH (20:55)
[2017-09-16 06:44] VITALS: BP 124/80
[2017-09-16 08:32] VITALS: BP 101/71
[2017-09-16] MEDS: BuPROPion HCL XL 150 MG ER TABLET PO SCH (10:46)
[2017-09-16] MEDS: CHOLECALCIFEROL (VIT D3) 1,000 UNITS TABLET PO SCH (10:46)
[2017-09-16] MEDS: MULTIVITAMINS WITH MINERALS, THERAPEUTIC TABLET PO SCH (10:47)
[2017-09-16] MEDS: OMEGA-3/DHA/EPA/FISH OIL 1,000 MG CAPSULE PO SCH (10:47)
[2017-09-16] MEDS: DOCUSATE SODIUM 250 MG CAPSULE PO SCH ×2 (10:47→17:02)
[2017-09-16 16:07] VITALS: BP 113/76
[2017-09-16] MEDS: QUEtiapine FUMARATE 50 MG ER TABLET PO SCH (20:52)
[2017-09-17 06:27] VITALS: BP 110/68
[2017-09-17 08:25] VITALS: BP 109/72
[2017-09-17] MEDS: OMEGA-3/DHA/EPA/FISH OIL 1,000 MG CAPSULE PO SCH (08:42)
[2017-09-17] MEDS: CHOLECALCIFEROL (VIT D3) 1,000 UNITS TABLET PO SCH (08:42)
[2017-09-17] MEDS: BuPROPion HCL XL 150 MG ER TABLET PO SCH (08:42)
[2017-09-17] MEDS: MULTIVITAMINS WITH MINERALS, THERAPEUTIC TABLET PO SCH (08:42)
[2017-09-17] MEDS: DOCUSATE SODIUM 250 MG CAPSULE PO SCH ×2 (08:42→16:12)
[2017-09-17 16:11] VITALS: BP 107/75
[2017-09-17] MEDS: QUEtiapine FUMARATE 50 MG ER TABLET PO SCH (20:16)
[2017-09-18 01:01] VITALS: BP 106/60
[2017-09-18] MEDS ORDERED: QUET50XR PO (02:21)
[2017-09-18] MEDS ORDERED: VITAD1000 PO (02:21)
[2017-09-18] MEDS ORDERED: OMEG-135 PO (02:21)
[2017-09-18] MEDS ORDERED: ALBU8HFA IH (02:21)
[2017-09-18] MEDS ORDERED: DOCU250C91 PO (02:21)
[2017-09-18] MEDS ORDERED: BUPR-93 PO (02:21)
== END 2017-09-18 07:15 | disposition home or self-care (01) | DRG 885 ==
LOC: B2X 13:00
PROVIDERS: ADMIT Psychiatry & Neurology Psychiatry; ATTEND Psychiatry & Neurology Psychiatry
DX: F31.9 Bipolar disorder, unspecified (principal); R45.851 Suicidal ideations; Z91.14 Patient's other noncompliance with medication regimen; F10.239 Alcohol dependence with withdrawal, unspecified; E55.9 Vitamin D deficiency, unspecified; E78.1 Pure hyperglyceridemia; E78.5 Hyperlipidemia, unspecified; F41.9 Anxiety disorder, unspecified; G47.00 Insomnia, unspecified; J44.9 Chronic obstructive pulmonary disease, unspecified; K21.9 Gastro-esophageal reflux disease without esophagitis; F17.200 Nicotine dependence, unspecified, uncomplicated; Z59.0 Homelessness; Z91.19 Patient's noncompliance with other medical treatment and regimen; Z79.899 Other long term (current) drug therapy; Z86.718 Personal history of other venous thrombosis and embolism; Z28.21 Immunization not carried out because of patient refusal
CPT/HCPCS: 82306; 83036; 84439; 84443; 90471; J3420

== ENCOUNTER 2018-01-05 12:27 | Inpatient (IN) | payer MEDICARE, MEDICAID ==
[~2018-01-05] VITALS: Ht 185.4 cm; Wt 93.9 kg
[~2018-01-05 12:27] MED LIST changes: +ALBU8HFA IH; +DOCU250C91 PO; -DSS100 PO; -NALT50TA6 PO; -OMEP20 PO; +VITAD1000 PO
[2018-01-05] MEDS ORDERED: GuaiFENesin/D-METHORPHAN [SUGAR-FREE] 200-20MG/10 ML SYRUP UDCUP PO PRN (12:30)
[2018-01-05] MEDS ORDERED: LOPERAMIDE HCL 2 MG CAPSULE PO PRN ×2 (12:30→15:30)
[2018-01-05] MEDS ORDERED: HydrOXYzine PAMOATE 50 MG CAPSULE PO PRN (12:30)
[2018-01-05] MEDS ORDERED: LORazepam 2 MG TABLET PO PRN (12:30)
[2018-01-05 14:00] VITALS: BP 138/89
[2018-01-05] MEDS ORDERED: PNEUMOCOCCAL VACCINE POLYVALENT 0.5 ML VIAL [PPSV23] IM ONE (14:45)
[2018-01-05] MEDS ORDERED: CYANOCOBALAMIN 1,000 MCG/ML VIAL IM ONE (15:00)
[2018-01-05 15:05] VITALS: BP 116/67
[2018-01-05] MEDS ORDERED: BENZOCAINE/MENTHOL LOZENGE MM PRN (15:30)
[2018-01-05] MEDS ORDERED: IBUPROFEN 600 MG TABLET PO PRN (15:30)
[2018-01-05] MEDS ORDERED: MAG HYDROX/AL HYDROX/SIMETH ES 30 ML SUSPENSION UDCUP PO PRN (15:30)
[2018-01-05] MEDS ORDERED: PETROLATUM,WHITE 71 GM JELLY TP PRN (15:30)
[2018-01-05] MEDS ORDERED: ONDANSETRON HCL 4 MG TABLET PO PRN (15:30)
[2018-01-05] MEDS ORDERED: ACETAMINOPHEN 325 MG TABLET PO PRN (15:30)
[2018-01-05] MEDS ORDERED: ALBUTEROL SULFATE HFA 90 MCG/PUFF 8 GM INHALER IH PRN (15:30)
[2018-01-05] MEDS ORDERED: MAGNESIUM HYDROXIDE SUSPENSION 30 ML UDCUP PO PRN (15:30)
[2018-01-05] MEDS ORDERED: CloNIDine HCL 0.1 MG TABLET PO PRN (15:30)
[2018-01-05] MEDS ORDERED: BACITRACIN 28.4 GM OINTMENT TP PRN (15:30)
[2018-01-05 16:00] VITALS: BP 123/66
[2018-01-05] MEDS: CarBAMazepine 200 MG TABLET PO SCH (16:58)
[2018-01-05 17:00] VITALS: BP 124/71
[2018-01-05] MEDS: THIAMINE HCL 100 MG TABLET PO SCH (17:00)
[2018-01-05] MEDS: MULTIVITAMINS WITH MINERALS, THERAPEUTIC TABLET PO SCH (17:32)
[2018-01-05] MEDS: FOLIC ACID 1 MG TABLET PO SCH (17:32)
[2018-01-05 18:00] VITALS: BP 119/66
[2018-01-05] MEDS: ESZOPICLONE 2 MG TABLET PO PRN (20:35)
[2018-01-05 22:00] VITALS: BP 137/87
[2018-01-06 02:10] VITALS: BP 122/67
[2018-01-06 06:01] VITALS: BP 125/75
[2018-01-06] MEDS ORDERED: LORazepam 2 MG TABLET PO PRN (07:00)
[2018-01-06 07:54] LABS: BASOPHILS % (AUTO) 0.9 % (0.0-2.0); HEMATOCRIT 42.9 % (41-53); HEMOGLOBIN 14.6 g/dL (13.5-17.5); LYMPHOCYTES # (AUTO) 1.5 K/uL (1.0-4.8); LYMPHOCYTES % (AUTO) 32.9 % (22.0-44.0); MEAN CORPUSCULAR HEMOGLOBIN 31.8 pg (26.0-34.0); MEAN CORPUSCULAR HGB CONC 34.1 G/dL (31.0-37.0); MEAN CORPUSCULAR VOLUME 93 fL (80-100); MONOCYTES # (AUTO) 0.5 K/uL (0.1-1.0); MONOCYTES % (AUTO) 10.7 % (2.0-9.0); NEUTROPHILS # (AUTO) 2.2 K/uL (1.8-7.7); NEUTROPHILS % (AUTO) 46.5 % (40.0-70.0); PLATELET COUNT (AUTO) 245 K/uL (150-450); RED CELL DISTRIBUTION WIDTH 13.3 % (11.5-14.5)
[2018-01-06 08:09] VITALS: BP 127/78
[2018-01-06 08:26] LABS: ALANINE AMINOTRANSFERASE 62 U/L (12-78); ALBUMIN 2.9 g/dL (3.4-5.0); ALKALINE PHOSPHATASE 63 U/L (46-116); ANION GAP 7 mmol/L (8-16); ASPARTATE AMINOTRANSFERASE 37 U/L (15-37); BILIRUBIN,TOTAL 0.5 mg/dL (0.1-1.0); CALCIUM, TOTAL 8.3 mg/dL (8.8-10.5); CARBON DIOXIDE 26 mmol/L (22-29); CHLORIDE 105 mmol/L (98-107); CHOL/HDL RATIO 2.8 (4.2-7.3); CHOLESTEROL 170 mg/dL (131-200); CREATININE 0.83 mg/dL (0.60-1.30); FREE T4 (FREE THYROXINE) 0.66 ng/dL (0.76-1.46); GLOMERULAR FILTR. RATE CALC > 60 mL/min (>60); GLUCOSE,RANDOM 86 mg/dL (70-110); HDL CHOLESTEROL 60 mg/dL (40-60); LDL CHOL (CALC.) 91 mg/dL (0-130); SODIUM SERUM 138 mmol/L (136-145); THYROID STIMULATING HORMONE 2.14 uIU/mL (0.36-3.74); TOTAL PROTEIN, SERUM 6.4 g/dL (6.4-8.2); TRIGLYCERIDES 93 mg/dL (15-150); UREA NITROGEN, BLOOD 16 mg/dL (7-18)
[2018-01-06] MEDS: FOLIC ACID 1 MG TABLET PO SCH (08:28)
[2018-01-06] MEDS: CarBAMazepine 200 MG TABLET PO SCH ×2 (08:28→17:00)
[2018-01-06] MEDS: MULTIVITAMINS WITH MINERALS, THERAPEUTIC TABLET PO SCH (08:28)
[2018-01-06] MEDS: THIAMINE HCL 100 MG TABLET PO SCH ×2 (08:28→17:00)
[2018-01-06] MEDS: OMEPRAZOLE 20 MG CAPSULE PO SCH (08:28)
[2018-01-06] MEDS: OMEGA-3/DHA/EPA/FISH OIL 1,000 MG CAPSULE PO SCH (08:28)
[2018-01-06] MEDS: LORazepam 2 MG TABLET PO SCH ×4 (08:28→20:26)
[2018-01-06] MEDS: CHOLECALCIFEROL (VIT D3) 1,000 UNITS TABLET PO SCH (08:30)
[2018-01-06] MEDS: DOCUSATE SODIUM 100 MG CAPSULE PO SCH (08:30)
[2018-01-06 08:51] LABS: HEMOGLOBIN A1C 5.3 % (4.5-6.2)
[2018-01-06 10:00] VITALS: BP 114/69
[2018-01-06 11:20] LABS: AMPHET/METH SCREEN,URINE NEGATIVE (NEGATIVE); BARBITURATE SCREEN, URINE NEGATIVE (NEGATIVE); BENZODIAZEPINES SCREEN,URINE NEGATIVE (NEGATIVE); CANNABINOID SCREEN,URINE NEGATIVE (NEGATIVE); COCAINE SCREEN,URINE NEGATIVE (NEGATIVE); METHADONE SCREEN, URINE NEGATIVE (NEGATIVE); OPIATE SCREEN,URINE NEGATIVE (NEGATIVE)
[2018-01-06 11:22] LABS: PHENCYCLIDINE SCREEN,URINE NEGATIVE (NEGATIVE)
[2018-01-06 11:41] LABS: APPEARANCE,URINE CLEAR (CLEAR); BILIRUBIN,URINE NEGATIVE (NEGATIVE); GLUCOSE, URINE (UA) NEGATIVE (NEGATIVE); KETONES,URINE NEGATIVE (NEGATIVE); LEUKOCYTE ESTERASE ,URINE NEGATIVE (NEGATIVE); NITRATE,URINE NEGATIVE (NEGATIVE); OCCULT BLOOD,URINE NEGATIVE (NEGATIVE); PROTEIN,URINE POS 1+ (NEGATIVE); UROBILINOGEN,URINE 0.2 mg/dL (<=1.0)
[2018-01-06 14:05] VITALS: BP 127/73
[2018-01-06 16:00] VITALS: BP 122/68
[2018-01-07 07:03] VITALS: BP 115/84
[2018-01-07 07:06] VITALS: BP 115/84
[2018-01-07 08:05] VITALS: BP 123/65
[2018-01-07 08:26] VITALS: BP 123/65
[2018-01-07] MEDS: DOCUSATE SODIUM 100 MG CAPSULE PO SCH (08:43)
[2018-01-07] MEDS: CarBAMazepine 200 MG TABLET PO SCH ×2 (08:43→16:23)
[2018-01-07] MEDS: LORazepam 2 MG TABLET PO SCH ×4 (08:43→20:27)
[2018-01-07] MEDS: OMEGA-3/DHA/EPA/FISH OIL 1,000 MG CAPSULE PO SCH (08:43)
[2018-01-07] MEDS: CHOLECALCIFEROL (VIT D3) 1,000 UNITS TABLET PO SCH (08:43)
[2018-01-07] MEDS: FOLIC ACID 1 MG TABLET PO SCH (08:43)
[2018-01-07] MEDS: THIAMINE HCL 100 MG TABLET PO SCH ×2 (08:44→16:23)
[2018-01-07] MEDS: MULTIVITAMINS WITH MINERALS, THERAPEUTIC TABLET PO SCH (08:44)
[2018-01-07] MEDS: OMEPRAZOLE 20 MG CAPSULE PO SCH (09:39)
[2018-01-07] MEDS ORDERED: QUEtiapine FUMARATE 25 MG TABLET PO PRN (13:15)
[2018-01-07 16:00] VITALS: BP 114/65
[2018-01-07] MEDS ORDERED: QUEtiapine FUMARATE 100 MG TABLET PO SCH (21:00)
[2018-01-08] VITALS (8 sets, daily range): BP systolic 94–116; BP diastolic 59–66
[2018-01-08] MEDS ORDERED: LORazepam 1 MG TABLET PO PRN (07:00)
[2018-01-08] MEDS: OMEGA-3/DHA/EPA/FISH OIL 1,000 MG CAPSULE PO SCH (09:08)
[2018-01-08] MEDS: LORazepam 1 MG TABLET PO SCH ×4 (09:08→20:08)
[2018-01-08] MEDS: OMEPRAZOLE 20 MG CAPSULE PO SCH (09:08)
[2018-01-08] MEDS: CHOLECALCIFEROL (VIT D3) 1,000 UNITS TABLET PO SCH (09:08)
[2018-01-08] MEDS: DOCUSATE SODIUM 100 MG CAPSULE PO SCH (09:08)
[2018-01-08] MEDS: FOLIC ACID 1 MG TABLET PO SCH (09:08)
[2018-01-08] MEDS: CarBAMazepine 200 MG TABLET PO SCH ×2 (09:08→17:09)
[2018-01-08] MEDS: NALTREXONE HCL 50 MG TABLET PO SCH (09:08)
[2018-01-08] MEDS: MULTIVITAMINS WITH MINERALS, THERAPEUTIC TABLET PO SCH (09:08)
[2018-01-08] MEDS: THIAMINE HCL 100 MG TABLET PO SCH ×2 (09:10→17:09)
[2018-01-08] MEDS: QUEtiapine FUMARATE 100 MG TABLET PO SCH (20:07)
[2018-01-09] MEDS: ESZOPICLONE 2 MG TABLET PO PRN ×2 (00:01→20:44)
[2018-01-09 02:12] VITALS: BP 100/62
[2018-01-09 02:17] VITALS: BP 100/62
[2018-01-09] MEDS ORDERED: LORazepam 1 MG TABLET PO PRN (07:00)
[2018-01-09] MEDS: MULTIVITAMINS WITH MINERALS, THERAPEUTIC TABLET PO SCH (09:01)
[2018-01-09] MEDS: OMEPRAZOLE 20 MG CAPSULE PO SCH (09:01)
[2018-01-09] MEDS: OMEGA-3/DHA/EPA/FISH OIL 1,000 MG CAPSULE PO SCH (09:01)
[2018-01-09] MEDS: CHOLECALCIFEROL (VIT D3) 1,000 UNITS TABLET PO SCH (09:01)
[2018-01-09] MEDS: CarBAMazepine 200 MG TABLET PO SCH ×2 (09:01→16:45)
[2018-01-09] MEDS: NALTREXONE HCL 50 MG TABLET PO SCH (09:01)
[2018-01-09] MEDS: FOLIC ACID 1 MG TABLET PO SCH (09:01)
[2018-01-09] MEDS: DOCUSATE SODIUM 100 MG CAPSULE PO SCH (09:01)
[2018-01-09] MEDS: THIAMINE HCL 100 MG TABLET PO SCH ×2 (09:01→16:45)
[2018-01-09 09:14] VITALS: BP 112/60
[2018-01-09 16:00] VITALS: BP 111/75
[2018-01-09] MEDS: QUEtiapine FUMARATE 100 MG TABLET PO SCH (20:43)
[2018-01-10 03:55] VITALS: BP 109/70
[2018-01-10 03:58] VITALS: BP 109/70
[2018-01-10 08:00] VITALS: BP 110/66
[2018-01-10 08:05] VITALS: BP 110/66
[2018-01-10] MEDS: OMEGA-3/DHA/EPA/FISH OIL 1,000 MG CAPSULE PO SCH (09:18)
[2018-01-10] MEDS: FOLIC ACID 1 MG TABLET PO SCH (09:18)
[2018-01-10] MEDS: CarBAMazepine 200 MG TABLET PO SCH ×2 (09:18→17:08)
[2018-01-10] MEDS: CHOLECALCIFEROL (VIT D3) 1,000 UNITS TABLET PO SCH (09:18)
[2018-01-10] MEDS: MULTIVITAMINS WITH MINERALS, THERAPEUTIC TABLET PO SCH (09:18)
[2018-01-10] MEDS: NALTREXONE HCL 50 MG TABLET PO SCH (09:18)
[2018-01-10] MEDS: DOCUSATE SODIUM 100 MG CAPSULE PO SCH (09:19)
[2018-01-10] MEDS: OMEPRAZOLE 20 MG CAPSULE PO SCH (09:19)
[2018-01-10] MEDS: THIAMINE HCL 100 MG TABLET PO SCH ×2 (09:19→17:08)
[2018-01-10 17:34] VITALS: BP 123/71
[2018-01-10] MEDS: QUEtiapine FUMARATE 100 MG TABLET PO SCH (20:32)
[2018-01-11 01:02] VITALS: BP 114/69
[2018-01-11 01:03] VITALS: BP 114/69
[2018-01-11 08:10] VITALS: BP 122/72
[2018-01-11] MEDS: OMEGA-3/DHA/EPA/FISH OIL 1,000 MG CAPSULE PO SCH (09:13)
[2018-01-11] MEDS: NALTREXONE HCL 50 MG TABLET PO SCH (09:13)
[2018-01-11] MEDS: CarBAMazepine 200 MG TABLET PO SCH ×2 (09:13→16:09)
[2018-01-11] MEDS: MULTIVITAMINS WITH MINERALS, THERAPEUTIC TABLET PO SCH (09:13)
[2018-01-11] MEDS: CHOLECALCIFEROL (VIT D3) 1,000 UNITS TABLET PO SCH (09:13)
[2018-01-11] MEDS: THIAMINE HCL 100 MG TABLET PO SCH ×2 (09:13→16:09)
[2018-01-11] MEDS: DOCUSATE SODIUM 100 MG CAPSULE PO SCH (09:13)
[2018-01-11] MEDS: FOLIC ACID 1 MG TABLET PO SCH (09:13)
[2018-01-11] MEDS: OMEPRAZOLE 20 MG CAPSULE PO SCH (09:14)
[2018-01-11 16:10] VITALS: BP 123/86
[2018-01-11] MEDS ORDERED: NALTREXONE HCL 50 MG TABLET PO ONE (17:15)
[2018-01-11] MEDS ORDERED: CarBAMazepine 100 MG CHEWABLE TABLET PO ONE (17:45)
[2018-01-11] MEDS: ESZOPICLONE 2 MG TABLET PO PRN (20:35)
[2018-01-11] MEDS: QUEtiapine FUMARATE 50 MG ER TABLET PO SCH (20:35)
[2018-01-12 03:25] VITALS: BP 122/80
[2018-01-12 08:33] VITALS: BP 133/77
[2018-01-12] MEDS: THIAMINE HCL 100 MG TABLET PO SCH ×2 (08:48→16:35)
[2018-01-12] MEDS: DOCUSATE SODIUM 100 MG CAPSULE PO SCH (08:48)
[2018-01-12] MEDS: FOLIC ACID 1 MG TABLET PO SCH (08:48)
[2018-01-12] MEDS: OMEGA-3/DHA/EPA/FISH OIL 1,000 MG CAPSULE PO SCH (08:48)
[2018-01-12] MEDS: NALTREXONE HCL 50 MG TABLET PO SCH (08:48)
[2018-01-12] MEDS: CHOLECALCIFEROL (VIT D3) 1,000 UNITS TABLET PO SCH (08:49)
[2018-01-12] MEDS: MULTIVITAMINS WITH MINERALS, THERAPEUTIC TABLET PO SCH (08:49)
[2018-01-12] MEDS: CarBAMazepine 100 MG CHEWABLE TABLET PO SCH ×2 (08:49→16:35)
[2018-01-12] MEDS: OMEPRAZOLE 20 MG CAPSULE PO SCH (08:49)
[2018-01-12] MEDS ORDERED: NALTREXONE HCL 50 MG TABLET PO SCH (09:00)
[2018-01-12] MEDS ORDERED: BuPROPion HCL XL 150 MG ER TABLET PO SCH (09:00)
[2018-01-12] MEDS ORDERED: BuPROPion HCL 150 MG SR TABLET PO SCH (09:00)
[2018-01-12 16:00] VITALS: BP 133/72
[2018-01-12] MEDS: ESZOPICLONE 2 MG TABLET PO PRN (20:35)
[2018-01-12] MEDS: QUEtiapine FUMARATE 50 MG ER TABLET PO SCH (20:35)
[2018-01-13 04:05] VITALS: BP 111/71
[2018-01-13 08:12] VITALS: BP 121/76
[2018-01-13] MEDS: BuPROPion HCL XL 150 MG ER TABLET PO SCH (08:46)
[2018-01-13] MEDS: OMEPRAZOLE 20 MG CAPSULE PO SCH (08:46)
[2018-01-13] MEDS: DOCUSATE SODIUM 100 MG CAPSULE PO SCH (08:46)
[2018-01-13] MEDS: CarBAMazepine 100 MG CHEWABLE TABLET PO SCH (08:46)
[2018-01-13] MEDS: CHOLECALCIFEROL (VIT D3) 1,000 UNITS TABLET PO SCH (08:46)
[2018-01-13] MEDS: FOLIC ACID 1 MG TABLET PO SCH (08:47)
[2018-01-13] MEDS: MULTIVITAMINS WITH MINERALS, THERAPEUTIC TABLET PO SCH (08:47)
[2018-01-13] MEDS: NALTREXONE HCL 50 MG TABLET PO SCH (08:47)
[2018-01-13] MEDS: THIAMINE HCL 100 MG TABLET PO SCH ×2 (08:47→16:34)
[2018-01-13] MEDS: OMEGA-3/DHA/EPA/FISH OIL 1,000 MG CAPSULE PO SCH (08:47)
[2018-01-13 16:24] VITALS: BP 116/79
[2018-01-13] MEDS: QUEtiapine FUMARATE 50 MG ER TABLET PO SCH (20:18)
[2018-01-13] MEDS: ESZOPICLONE 2 MG TABLET PO PRN (20:18)
[2018-01-14 06:53] VITALS: BP 101/64
[2018-01-14 08:07] VITALS: BP 129/70
[2018-01-14] MEDS: NALTREXONE HCL 50 MG TABLET PO SCH (08:43)
[2018-01-14] MEDS: BuPROPion HCL XL 150 MG ER TABLET PO SCH (08:43)
[2018-01-14] MEDS: DOCUSATE SODIUM 100 MG CAPSULE PO SCH (08:43)
[2018-01-14] MEDS: CHOLECALCIFEROL (VIT D3) 1,000 UNITS TABLET PO SCH (08:43)
[2018-01-14] MEDS: FOLIC ACID 1 MG TABLET PO SCH (08:43)
[2018-01-14] MEDS: OMEGA-3/DHA/EPA/FISH OIL 1,000 MG CAPSULE PO SCH (08:43)
[2018-01-14] MEDS: THIAMINE HCL 100 MG TABLET PO SCH ×2 (08:43→17:07)
[2018-01-14] MEDS: OMEPRAZOLE 20 MG CAPSULE PO SCH (08:43)
[2018-01-14] MEDS: MULTIVITAMINS WITH MINERALS, THERAPEUTIC TABLET PO SCH (08:43)
[2018-01-14] MEDS ORDERED: QUET50XR PO (12:08)
[2018-01-14] MEDS ORDERED: BUPR-47 PO (12:08)
[2018-01-14] MEDS ORDERED: NALT50TA PO (12:08)
[2018-01-14] MEDS ORDERED: OMEG-135 PO (12:11)
[2018-01-14] MEDS ORDERED: OMEP20 PO (13:44)
[2018-01-14] MEDS ORDERED: NALT50TA6 PO (13:44)
[2018-01-14 16:00] VITALS: BP 118/73
== END 2018-01-14 19:00 | DRG 885 ==
LOC: EDSTATUS 12:27 → B3A 12:30 → EDSTATUS 12:31
PROVIDERS: ADMIT Psychiatry & Neurology Psychiatry; ATTEND Psychiatry & Neurology Psychiatry
DX: F31.5 Bipolar disorder, current episode depressed, severe, with psychotic features (principal); R45.851 Suicidal ideations; F10.229 Alcohol dependence with intoxication, unspecified; K21.9 Gastro-esophageal reflux disease without esophagitis; I10 Essential (primary) hypertension; E55.9 Vitamin D deficiency, unspecified; E78.1 Pure hyperglyceridemia; E78.5 Hyperlipidemia, unspecified; F17.200 Nicotine dependence, unspecified, uncomplicated; F41.9 Anxiety disorder, unspecified; G47.00 Insomnia, unspecified; J44.9 Chronic obstructive pulmonary disease, unspecified; R63.4 Abnormal weight loss; Z91.14 Patient's other noncompliance with medication regimen; Z71.6 Tobacco abuse counseling; Z28.21 Immunization not carried out because of patient refusal; Z79.899 Other long term (current) drug therapy
CPT/HCPCS: 80307; 83036; 84439; 84443; G0480; J3420

== ENCOUNTER 2021-01-13 20:45 | Emergency (ER) | payer OTHER, MEDICAID ==
[~2021-01-13] VITALS: Ht 188 cm; Wt 106.8 kg
[~2021-01-13 20:45] MED LIST changes: -ALBU8HFA IH; +BUPR-49 PO; -DOCU250C91 PO; -OMEG-135 PO; +QUET100T PO; +QUET100T34 PO; -QUET50XR PO; -VITAD1000 PO
[2021-01-13 22:38] LABS: BASOPHILS % (AUTO) 0.4 % (0.0-2.0); EOSINOPHILS % (AUTO) 1.2 % (1.0-6.0); HEMATOCRIT 46.3 % (41-53); HEMOGLOBIN 15.5 g/dL (13.5-17.5); LYMPHOCYTES # (AUTO) 1.4 K/uL (1.0-4.8); LYMPHOCYTES % (AUTO) 15.1 % (22.0-44.0); MEAN CORPUSCULAR HGB CONC 33.4 G/dL (31.0-37.0); MEAN CORPUSCULAR VOLUME 93 fL (80-100); MONOCYTES # (AUTO) 0.7 K/uL (0.1-1.0); MONOCYTES % (AUTO) 7.9 % (2.0-9.0); NEUTROPHILS # (AUTO) 6.9 K/uL (1.8-7.7); NEUTROPHILS % (AUTO) 75.4 % (40.0-70.0); PLATELET COUNT (AUTO) 277 K/uL (150-450); RED BLOOD CELL COUNT(AUTO) 4.99 MIL/uL (4.50-5.90); RED CELL DISTRIBUTION WIDTH 13.5 % (11.5-14.5)
[2021-01-13 22:49] LABS: ANION GAP 12 mmol/L (8-16); CALCIUM, TOTAL 9.7 mg/dL (8.8-10.5); CARBON DIOXIDE 25 mmol/L (22-29); CHLORIDE 102 mmol/L (98-107); CREATININE 1.29 mg/dL (0.60-1.30); GLOMERULAR FILTR. RATE CALC 58 mL/min (>60); GLUCOSE,RANDOM 106 mg/dL (70-110); POTASSIUM 4.6 mmol/L (3.5-5.1); SODIUM SERUM 139 mmol/L (136-145); UREA NITROGEN, BLOOD 19 mg/dL (7-18)
[2021-01-13 22:54] LABS: ALANINE AMINOTRANSFERASE 43 U/L (12-78); ALBUMIN 4.1 g/dL (3.4-5.0); ALKALINE PHOSPHATASE 86 U/L (46-116); ASPARTATE AMINOTRANSFERASE 23 U/L (15-37); BILIRUBIN,TOTAL 0.6 mg/dL (0.1-1.0); TOTAL PROTEIN, SERUM 8.4 g/dL (6.4-8.2)
[2021-01-13 23:12] LABS: COVID AG,FIA SOURCE NASOPHARYNGEAL
[2021-01-14 08:00] VITALS: BP 127/76
== END 2021-01-14 09:10 | disposition short-term general hospital (02) ==
LOC: EMS 20:50
DX: F25.9 Schizoaffective disorder, unspecified (principal); Z20.822 Contact with and (suspected) exposure to COVID-19
CPT/HCPCS: 80053; 85025; 87426; 99285; G0480

== ENCOUNTER 2021-04-08 06:51 | Inpatient (IN) | payer MEDICARE, MEDICAID ==
[~2021-04-08] VITALS: Ht 188 cm; Wt 110.4 kg
[2021-04-08] VITALS (7 sets, daily range): BP systolic 128–153; BP diastolic 73–84
[2021-04-08] MEDS ORDERED: ZOLPIDEM TARTRATE 10 MG TABLET PO PRN (07:45)
[2021-04-08] MEDS ORDERED: HALOPERIDOL 5 MG TABLET PO PRN (07:45)
[2021-04-08] MEDS ORDERED: LORazepam 2 MG TABLET PO PRN ×2 (07:45→09:45)
[2021-04-08] MEDS ORDERED: INFLUENZA VIRUS VACCINE QVS 2021-22 (6MO+)/PF 60 MCG/0.5 ML SYRINGE IM. ONE (08:15)
[2021-04-08] MEDS ORDERED: PNEUMOCOCCAL VACCINE POLYVALENT 0.5 ML VIAL [PPSV23] IM. ONE (08:15)
[2021-04-08 09:33] LABS: GLUCOMETER DEV NAME(LOC) POC.BV
[2021-04-08] MEDS ORDERED: CYANOCOBALAMIN 1,000 MCG/ML VIAL IM ONE (09:45)
[2021-04-08] MEDS: MULTIVITAMINS WITH MINERALS, THERAPEUTIC TABLET PO SCH (10:42)
[2021-04-08] MEDS: BuPROPion HCL XL 150 MG ER TABLET PO SCH (10:42)
[2021-04-08] MEDS: THIAMINE 100 MG TABLET PO SCH ×2 (10:42→16:39)
[2021-04-08] MEDS: FOLIC ACID 1 MG TABLET PO SCH (10:42)
[2021-04-08] MEDS ORDERED: CloNIDine HCL 0.1 MG TABLET PO PRN (19:30)
[2021-04-08] MEDS ORDERED: MAG HYDROX/AL HYDROX/SIMETH ES 30 ML SUSPENSION UDCUP PO PRN (19:30)
[2021-04-08] MEDS ORDERED: BACITRACIN 28 GM OINTMENT TP PRN (19:30)
[2021-04-08] MEDS ORDERED: ONDANSETRON HCL 4 MG TABLET PO PRN (19:30)
[2021-04-08] MEDS ORDERED: IBUPROFEN 600 MG TABLET PO PRN (19:30)
[2021-04-08] MEDS ORDERED: PETROLATUM,WHITE 28 GM JELLY TP PRN (19:30)
[2021-04-08] MEDS ORDERED: MAGNESIUM HYDROXIDE SUSPENSION 30 ML UDCUP PO PRN (19:30)
[2021-04-08] MEDS ORDERED: ALBUTEROL SULFATE HFA 90 MCG/PUFF 8 GM INHALER IH PRN (19:30)
[2021-04-08] MEDS ORDERED: BENZOCAINE/MENTHOL LOZENGE PO PRN (19:30)
[2021-04-08] MEDS ORDERED: ACETAMINOPHEN 325 MG TABLET PO PRN (19:30)
[2021-04-08] MEDS ORDERED: LOPERAMIDE HCL 2 MG CAPSULE PO PRN (19:30)
[2021-04-08] MEDS: QUEtiapine FUMARATE 100 MG TABLET PO SCH (20:18)
[2021-04-09] VITALS (8 sets, daily range): BP systolic 101–128; BP diastolic 60–81
[2021-04-09] MEDS ORDERED: ONDANSETRON HCL 4 MG TABLET PO PRN (06:30)
[2021-04-09] MEDS ORDERED: ACETAMINOPHEN 325 MG TABLET PO PRN (06:30)
[2021-04-09] MEDS ORDERED: LOPERAMIDE HCL 2 MG CAPSULE PO PRN (06:30)
[2021-04-09] MEDS ORDERED: ALBUTEROL SULFATE HFA 90 MCG/PUFF 8 GM INHALER IH PRN (06:30)
[2021-04-09] MEDS ORDERED: MAG HYDROX/AL HYDROX/SIMETH ES 30 ML SUSPENSION UDCUP PO PRN (06:30)
[2021-04-09] MEDS ORDERED: CloNIDine HCL 0.1 MG TABLET PO PRN (06:30)
[2021-04-09] MEDS ORDERED: GuaiFENesin/D-METHORPHAN [SUGAR-FREE] 200-20MG/10 ML SYRUP UDCUP PO PRN (06:30)
[2021-04-09] MEDS ORDERED: PETROLATUM,WHITE 28 GM JELLY TP PRN (06:30)
[2021-04-09] MEDS ORDERED: IBUPROFEN 400 MG TABLET PO PRN (06:30)
[2021-04-09] MEDS ORDERED: MAGNESIUM HYDROXIDE SUSPENSION 30 ML UDCUP PO PRN (06:30)
[2021-04-09] MEDS ORDERED: DOCUSATE SODIUM 100 MG CAPSULE PO PRN (06:30)
[2021-04-09] MEDS ORDERED: NICOTINE 14 MG/24 HOUR PATCH TD PRN (06:30)
[2021-04-09] MEDS ORDERED: LORazepam 2 MG TABLET PO PRN (07:00)
[2021-04-09 07:09] LABS: BASOPHILS % (AUTO) 0.5 % (0.0-2.0); EOSINOPHILS % (AUTO) 4.6 % (1.0-6.0); HEMATOCRIT 44.9 % (41-53); HEMOGLOBIN 15.4 g/dL (13.5-17.5); LYMPHOCYTES # (AUTO) 1.6 K/uL (1.0-4.8); LYMPHOCYTES % (AUTO) 24.4 % (22.0-44.0); MEAN CORPUSCULAR HGB CONC 34.2 G/dL (31.0-37.0); MEAN CORPUSCULAR VOLUME 91 fL (80-100); MONOCYTES # (AUTO) 0.5 K/uL (0.1-1.0); MONOCYTES % (AUTO) 7.9 % (2.0-9.0); NEUTROPHILS # (AUTO) 4.1 K/uL (1.8-7.7); NEUTROPHILS % (AUTO) 62.6 % (40.0-70.0); PLATELET COUNT (AUTO) 271 K/uL (150-450); RED BLOOD CELL COUNT(AUTO) 4.96 MIL/uL (4.50-5.90); RED CELL DISTRIBUTION WIDTH 13.8 % (11.5-14.5)
[2021-04-09 07:32] LABS: ALANINE AMINOTRANSFERASE 41 U/L (12-78); ALBUMIN 3.1 g/dL (3.4-5.0); ALKALINE PHOSPHATASE 82 U/L (46-116); ANION GAP 6 mmol/L (8-16); ASPARTATE AMINOTRANSFERASE 18 U/L (15-37); BILIRUBIN,TOTAL 0.5 mg/dL (0.1-1.0); CARBON DIOXIDE 28 mmol/L (22-29); CHLORIDE 105 mmol/L (98-107); CHOL/HDL RATIO 4.7 (4.2-7.3); CHOLESTEROL 222 mg/dL (131-200); CREATININE 0.98 mg/dL (0.60-1.30); FREE T4 (FREE THYROXINE) 1.01 ng/dL (0.76-1.46); GLOMERULAR FILTR. RATE CALC > 60 mL/min (>60); GLUCOSE,RANDOM 113 mg/dL (70-110); HDL CHOLESTEROL 47 mg/dL (40-60); LDL CHOL (CALC.) 134 mg/dL (0-130); POTASSIUM 4.2 mmol/L (3.5-5.1); SODIUM SERUM 139 mmol/L (136-145); THYROID STIMULATING HORMONE 2.05 uIU/mL (0.36-3.74); TOTAL PROTEIN, SERUM 6.6 g/dL (6.4-8.2); TRIGLYCERIDES 205 mg/dL (15-150); UREA NITROGEN, BLOOD 12 mg/dL (7-18)
[2021-04-09] MEDS ORDERED: DOCUSATE SODIUM 100 MG CAPSULE PO SCH (09:00)
[2021-04-09] MEDS: MULTIVITAMINS WITH MINERALS, THERAPEUTIC TABLET PO SCH (09:24)
[2021-04-09] MEDS: OMEPRAZOLE 20 MG CAPSULE PO SCH (09:24)
[2021-04-09] MEDS: FOLIC ACID 1 MG TABLET PO SCH (09:24)
[2021-04-09] MEDS: BuPROPion HCL XL 150 MG ER TABLET PO SCH (09:24)
[2021-04-09] MEDS: THIAMINE 100 MG TABLET PO SCH ×2 (09:25→16:34)
[2021-04-09] MEDS: LORazepam 2 MG TABLET PO SCH ×4 (09:25→20:33)
[2021-04-09] MEDS: QUEtiapine FUMARATE 100 MG TABLET PO SCH (20:34)
[2021-04-10 00:27] VITALS: BP 119/72
[2021-04-10 04:27] VITALS: BP 110/75
[2021-04-10 08:25] VITALS: BP 120/77
[2021-04-10] MEDS: THIAMINE 100 MG TABLET PO SCH ×2 (09:07→16:38)
[2021-04-10] MEDS: LORazepam 2 MG TABLET PO SCH ×4 (09:07→20:32)
[2021-04-10] MEDS: MULTIVITAMINS WITH MINERALS, THERAPEUTIC TABLET PO SCH (09:07)
[2021-04-10] MEDS: OMEPRAZOLE 20 MG CAPSULE PO SCH (09:07)
[2021-04-10] MEDS: FOLIC ACID 1 MG TABLET PO SCH (09:08)
[2021-04-10] MEDS: BuPROPion HCL XL 150 MG ER TABLET PO SCH (10:40)
[2021-04-10 13:28] VITALS: BP 118/76
[2021-04-10 13:31] VITALS: BP 110/70
[2021-04-10 16:35] VITALS: BP 114/72
[2021-04-10] MEDS: QUEtiapine FUMARATE 100 MG TABLET PO SCH (20:32)
[2021-04-11 01:17] VITALS: BP 118/72
[2021-04-11] MEDS ORDERED: LORazepam 1 MG TABLET PO PRN (07:00)
[2021-04-11 08:35] VITALS: BP 113/63
[2021-04-11] MEDS: THIAMINE 100 MG TABLET PO SCH ×2 (09:06→16:33)
[2021-04-11] MEDS: FOLIC ACID 1 MG TABLET PO SCH (09:06)
[2021-04-11] MEDS: OMEPRAZOLE 20 MG CAPSULE PO SCH (09:06)
[2021-04-11] MEDS: BuPROPion HCL XL 150 MG ER TABLET PO SCH (09:06)
[2021-04-11] MEDS: LORazepam 1 MG TABLET PO SCH ×4 (09:06→20:19)
[2021-04-11] MEDS: MULTIVITAMINS WITH MINERALS, THERAPEUTIC TABLET PO SCH (09:07)
[2021-04-11 16:29] VITALS: BP 134/62
[2021-04-11] MEDS: QUEtiapine FUMARATE 100 MG TABLET PO SCH (20:19)
[2021-04-12 01:15] VITALS: BP 105/62
[2021-04-12] MEDS ORDERED: LORazepam 1 MG TABLET PO PRN (07:00)
[2021-04-12 08:22] VITALS: BP 115/66
[2021-04-12] MEDS: THIAMINE 100 MG TABLET PO SCH ×2 (09:11→16:53)
[2021-04-12] MEDS: OMEPRAZOLE 20 MG CAPSULE PO SCH (09:11)
[2021-04-12] MEDS: BuPROPion HCL XL 150 MG ER TABLET PO SCH (09:11)
[2021-04-12] MEDS: FOLIC ACID 1 MG TABLET PO SCH (09:11)
[2021-04-12] MEDS: MULTIVITAMINS WITH MINERALS, THERAPEUTIC TABLET PO SCH (09:11)
[2021-04-12 16:26] VITALS: BP 116/69
[2021-04-12] MEDS: QUEtiapine FUMARATE 100 MG TABLET PO SCH (20:59)
[2021-04-13 05:39] VITALS: BP 109/69
[2021-04-13 08:08] VITALS: BP 128/77
[2021-04-13] MEDS: OMEPRAZOLE 20 MG CAPSULE PO SCH (08:36)
[2021-04-13] MEDS: MULTIVITAMINS WITH MINERALS, THERAPEUTIC TABLET PO SCH (08:36)
[2021-04-13] MEDS: FOLIC ACID 1 MG TABLET PO SCH (08:36)
[2021-04-13] MEDS: BuPROPion HCL XL 150 MG ER TABLET PO SCH (08:36)
[2021-04-13] MEDS: THIAMINE 100 MG TABLET PO SCH (08:36)
[2021-04-13] MEDS ORDERED: QUET200T PO (10:32)
[2021-04-13] MEDS ORDERED: OMEP20 PO (10:33)
== END 2021-04-13 12:15 | disposition home or self-care (01) | DRG 885 ==
LOC: B2S 07:48 → B2X 04-12 18:08
PROVIDERS: ADMIT Psychiatry & Neurology Psychiatry; ATTEND Psychiatry & Neurology Psychiatry
PROC: 3E0234Z Introduction of Serum, Toxoid and Vaccine into Muscle, Percutaneous Approach (ICD-10-PCS; principal; 2021-04-08)
PROC: 3E02340 Introduction of Influenza Vaccine into Muscle, Percutaneous Approach (ICD-10-PCS; 2021-04-08)
DX: F31.4 Bipolar disorder, current episode depressed, severe, without psychotic features (principal); R45.851 Suicidal ideations; E11.9 Type 2 diabetes mellitus without complications; E66.9 Obesity, unspecified; I10 Essential (primary) hypertension; Z20.822 Contact with and (suspected) exposure to COVID-19; F15.10 Other stimulant abuse, uncomplicated; F10.20 Alcohol dependence, uncomplicated; F19.10 Other psychoactive substance abuse, uncomplicated; J44.9 Chronic obstructive pulmonary disease, unspecified; E78.5 Hyperlipidemia, unspecified; F22 Delusional disorders; Z68.31 Body mass index [BMI] 31.0-31.9, adult; Z91.51 Personal history of suicidal behavior; Z23 Encounter for immunization; Z79.899 Other long term (current) drug therapy; Z71.41 Alcohol abuse counseling and surveillance of alcoholic; Z71.51 Drug abuse counseling and surveillance of drug abuser
CPT/HCPCS: 80053; 80061; 83036; 84439; 84443; 85025; 86592; 90686; 90732; J3420

== ENCOUNTER 2021-04-15 14:15 | Emergency (ER) | payer MEDICARE, MEDICAID ==
[~2021-04-15] VITALS: Ht 188 cm; Wt 115.9 kg
[~2021-04-15 14:15] MED LIST changes: -BUPR-93 PO; +OMEP20 PO; -QUET100T PO; -QUET100T34 PO; +QUET200T PO
[2021-04-15] MEDS ORDERED: LORazepam 1 MG TABLET PO ONE (16:00)
[2021-04-15] MEDS ORDERED: BuPROPion HCL XL 150 MG ER TABLET PO ONE (16:00)
[2021-04-15] MEDS ORDERED: QUEtiapine FUMARATE 100 MG TABLET PO ONE (16:00)
[2021-04-15 16:07] LABS: BASOPHILS % (AUTO) 0.6 % (0.0-2.0); EOSINOPHILS % (AUTO) 3.5 % (1.0-6.0); HEMATOCRIT 47.1 % (41-53); HEMOGLOBIN 16.2 g/dL (13.5-17.5); LYMPHOCYTES # (AUTO) 1.7 K/uL (1.0-4.8); LYMPHOCYTES % (AUTO) 17.1 % (22.0-44.0); MEAN CORPUSCULAR HEMOGLOBIN 31.1 pg (26.0-34.0); MEAN CORPUSCULAR HGB CONC 34.5 G/dL (31.0-37.0); MEAN CORPUSCULAR VOLUME 90 fL (80-100); MONOCYTES # (AUTO) 0.9 K/uL (0.1-1.0); MONOCYTES % (AUTO) 9.3 % (2.0-9.0); NEUTROPHILS % (AUTO) 69.5 % (40.0-70.0); PLATELET COUNT (AUTO) 303 K/uL (150-450); RED BLOOD CELL COUNT(AUTO) 5.22 MIL/uL (4.50-5.90); RED CELL DISTRIBUTION WIDTH 13.6 % (11.5-14.5)
[2021-04-15 16:28] LABS: ANION GAP 4 mmol/L (8-16); CALCIUM, TOTAL 9.4 mg/dL (8.8-10.5); CARBON DIOXIDE 31 mmol/L (22-29); CHLORIDE 106 mmol/L (98-107); GLOMERULAR FILTR. RATE CALC 58 mL/min (>60); GLUCOSE,RANDOM 131 mg/dL (70-110); POTASSIUM 4.5 mmol/L (3.5-5.1); SODIUM SERUM 141 mmol/L (136-145); UREA NITROGEN, BLOOD 21 mg/dL (7-18)
[2021-04-15 16:34] LABS: ALANINE AMINOTRANSFERASE 49 U/L (12-78); ALBUMIN 3.4 g/dL (3.4-5.0); ALKALINE PHOSPHATASE 92 U/L (46-116); ASPARTATE AMINOTRANSFERASE 26 U/L (15-37); BILIRUBIN,TOTAL 0.3 mg/dL (0.1-1.0); TOTAL PROTEIN, SERUM 7.6 g/dL (6.4-8.2)
[2021-04-15 17:25] LABS: COVID AG,FIA SOURCE NASAL SWAB
[2021-04-15 21:02] VITALS: BP 146/79
== END 2021-04-15 21:04 | disposition home or self-care (01) ==
LOC: EMS 14:15
DX: F31.9 Bipolar disorder, unspecified (principal); F15.10 Other stimulant abuse, uncomplicated; F10.10 Alcohol abuse, uncomplicated; Z20.822 Contact with and (suspected) exposure to COVID-19; Y90.0 Blood alcohol level of less than 20 mg/100 ml
CPT/HCPCS: 36415; 80053; 85025; 87426; 99284; G0480

== ENCOUNTER 2021-05-11 16:10 | Inpatient (IN) | payer MEDICARE, MEDICAID ==
[~2021-05-11] VITALS: Ht 188 cm; Wt 109.1 kg
[~2021-05-11 16:10] MED LIST changes: -BUPR-49 PO; +BUPR-93 PO; -OMEP20 PO
[2021-05-11] MEDS ORDERED: HALOPERIDOL 5 MG TABLET PO PRN (16:30)
[2021-05-11 17:02] LABS: GLUCOMETER DEV NAME(LOC) POC.BV
[2021-05-11 19:51] VITALS: BP 150/80
[2021-05-11] MEDS ORDERED: -PHARMACY VACCINE NOTE- MISC ONE (20:00)
[2021-05-11] MEDS: LORazepam 2 MG TABLET PO PRN (20:06)
[2021-05-11] MEDS: ZOLPIDEM TARTRATE 10 MG TABLET PO PRN (20:06)
[2021-05-12 00:44] VITALS: BP 139/84
[2021-05-12 07:36] LABS: BASOPHILS % (AUTO) 0.4 % (0.0-2.0); EOSINOPHILS % (AUTO) 13.4 % (1.0-6.0); HEMATOCRIT 42.2 % (41-53); HEMOGLOBIN 14.5 g/dL (13.5-17.5); LYMPHOCYTES # (AUTO) 1.1 K/uL (1.0-4.8); LYMPHOCYTES % (AUTO) 16.8 % (22.0-44.0); MEAN CORPUSCULAR HEMOGLOBIN 30.8 pg (26.0-34.0); MEAN CORPUSCULAR HGB CONC 34.4 G/dL (31.0-37.0); MEAN CORPUSCULAR VOLUME 89 fL (80-100); MONOCYTES # (AUTO) 0.4 K/uL (0.1-1.0); MONOCYTES % (AUTO) 6.4 % (2.0-9.0); NEUTROPHILS # (AUTO) 4.3 K/uL (1.8-7.7); PLATELET COUNT (AUTO) 285 K/uL (150-450); RED BLOOD CELL COUNT(AUTO) 4.72 MIL/uL (4.50-5.90); RED CELL DISTRIBUTION WIDTH 13.4 % (11.5-14.5)
[2021-05-12 07:58] LABS: APPEARANCE,URINE CLEAR (CLEAR); BILIRUBIN,URINE NEGATIVE (NEGATIVE); GLUCOSE, URINE (UA) NEGATIVE (NEGATIVE); KETONES,URINE NEGATIVE (NEGATIVE); LEUKOCYTE ESTERASE ,URINE NEGATIVE (NEGATIVE); NITRATE,URINE NEGATIVE (NEGATIVE); OCCULT BLOOD,URINE NEGATIVE (NEGATIVE); PH,URINE 6.5 (5.0-8.0); PROTEIN,URINE NEGATIVE (NEGATIVE)
[2021-05-12 08:02] LABS: AMPHET/METH SCREEN,URINE POSITIVE (NEGATIVE); BARBITURATE SCREEN, URINE NEGATIVE (NEGATIVE); BENZODIAZEPINES SCREEN,URINE NEGATIVE (NEGATIVE); CANNABINOID SCREEN,URINE NEGATIVE (NEGATIVE); COCAINE SCREEN,URINE NEGATIVE (NEGATIVE); METHADONE SCREEN, URINE NEGATIVE (NEGATIVE); OPIATE SCREEN,URINE NEGATIVE (NEGATIVE)
[2021-05-12 08:09] LABS: ALANINE AMINOTRANSFERASE 40 U/L (12-78); ALBUMIN 3.1 g/dL (3.4-5.0); ALKALINE PHOSPHATASE 87 U/L (46-116); ANION GAP 7 mmol/L (8-16); ASPARTATE AMINOTRANSFERASE 19 U/L (15-37); BILIRUBIN,TOTAL 0.3 mg/dL (0.1-1.0); CALCIUM, TOTAL 8.8 mg/dL (8.8-10.5); CARBON DIOXIDE 27 mmol/L (22-29); CHLORIDE 101 mmol/L (98-107); CHOL/HDL RATIO 4.5 (4.2-7.3); CHOLESTEROL 201 mg/dL (131-200); CREATININE 0.87 mg/dL (0.60-1.30); FREE T4 (FREE THYROXINE) 1.21 ng/dL (0.76-1.46); GLOMERULAR FILTR. RATE CALC > 60 mL/min (>60); GLUCOSE,RANDOM 121 mg/dL (70-110); HDL CHOLESTEROL 45 mg/dL (40-60); LDL CHOL (CALC.) 130 mg/dL (0-130); POTASSIUM 4.2 mmol/L (3.5-5.1); SODIUM SERUM 135 mmol/L (136-145); THYROID STIMULATING HORMONE 2.77 uIU/mL (0.36-3.74); TOTAL PROTEIN, SERUM 7.2 g/dL (6.4-8.2); TRIGLYCERIDES 132 mg/dL (15-150); UREA NITROGEN, BLOOD 19 mg/dL (7-18)
[2021-05-12 08:11] LABS: PHENCYCLIDINE SCREEN,URINE NEGATIVE (NEGATIVE)
[2021-05-12 09:04] VITALS: BP 128/76
[2021-05-12] MEDS: BuPROPion HCL XL 150 MG ER TABLET PO SCH (11:13)
[2021-05-12] MEDS ORDERED: ALBUTEROL SULFATE HFA 90 MCG/PUFF 8 GM INHALER IH PRN (15:15)
[2021-05-12] MEDS ORDERED: DOCUSATE SODIUM 100 MG CAPSULE PO PRN (15:15)
[2021-05-12] MEDS ORDERED: CloNIDine HCL 0.1 MG TABLET PO PRN (15:15)
[2021-05-12] MEDS ORDERED: ONDANSETRON HCL 4 MG TABLET PO PRN (15:15)
[2021-05-12] MEDS ORDERED: NICOTINE 14 MG/24 HOUR PATCH TD PRN (15:15)
[2021-05-12] MEDS ORDERED: LOPERAMIDE HCL 2 MG CAPSULE PO PRN (15:15)
[2021-05-12] MEDS ORDERED: PETROLATUM,WHITE 28 GM JELLY TP PRN (15:15)
[2021-05-12] MEDS ORDERED: MAG HYDROX/AL HYDROX/SIMETH ES 30 ML SUSPENSION UDCUP PO PRN (15:15)
[2021-05-12 16:34] VITALS: BP 128/72
[2021-05-12] MEDS: QUEtiapine FUMARATE 200 MG TABLET PO SCH (20:37)
[2021-05-13 00:25] VITALS: BP 120/78
[2021-05-13] MEDS: BuPROPion HCL XL 150 MG ER TABLET PO SCH (08:19)
[2021-05-13 09:26] VITALS: BP 124/68
[2021-05-13 16:21] VITALS: BP 112/63
[2021-05-13] MEDS: LORazepam 2 MG TABLET PO PRN (18:33)
[2021-05-13] MEDS: QUEtiapine FUMARATE 200 MG TABLET PO SCH (20:42)
[2021-05-14 08:24] VITALS: BP 103/68
[2021-05-14] MEDS: BuPROPion HCL XL 150 MG ER TABLET PO SCH (08:32)
[2021-05-14 16:22] VITALS: BP 105/71
[2021-05-14] MEDS: QUEtiapine FUMARATE 200 MG TABLET PO SCH (20:48)
[2021-05-15 01:17] VITALS: BP 108/75
[2021-05-15 08:20] VITALS: BP 110/74
[2021-05-15] MEDS: BuPROPion HCL XL 150 MG ER TABLET PO SCH (08:41)
[2021-05-15 14:16] VITALS: BP 120/67
[2021-05-15 14:26] LABS: GLUCOMETER DEV NAME(LOC) POC.BV
[2021-05-15 17:12] VITALS: BP 117/72
[2021-05-15] MEDS: LORazepam 2 MG TABLET PO PRN (19:17)
[2021-05-15 20:32] VITALS: BP 130/74
[2021-05-15] MEDS: QUEtiapine FUMARATE 200 MG TABLET PO SCH (20:41)
[2021-05-15 22:46] VITALS: BP 128/75
[2021-05-16] VITALS (11 sets, daily range): BP systolic 95–123; BP diastolic 53–85
[2021-05-16] MEDS: BuPROPion HCL XL 150 MG ER TABLET PO SCH (08:59)
[2021-05-16] MEDS: LORazepam 2 MG TABLET PO PRN (08:59)
[2021-05-16] MEDS: QUEtiapine FUMARATE 200 MG TABLET PO SCH (20:37)
[2021-05-17] VITALS (8 sets, daily range): BP systolic 109–141; BP diastolic 52–84
[2021-05-17] MEDS: LORazepam 2 MG TABLET PO PRN (01:21)
[2021-05-17] MEDS: MAGNESIUM HYDROXIDE SUSPENSION 30 ML UDCUP PO PRN ×2 (06:29→20:02)
[2021-05-17] MEDS: BuPROPion HCL XL 150 MG ER TABLET PO SCH (08:53)
[2021-05-17] MEDS: GuaiFENesin/D-METHORPHAN [SUGAR-FREE] 200-20MG/10 ML SYRUP UDCUP PO PRN (13:40)
[2021-05-17] MEDS: QUEtiapine FUMARATE 200 MG TABLET PO SCH (20:02)
[2021-05-18 00:31] VITALS: BP 118/71
[2021-05-18 06:38] VITALS: BP 121/74
[2021-05-18 08:06] VITALS: BP 108/74
[2021-05-18] MEDS: BuPROPion HCL XL 150 MG ER TABLET PO SCH (08:19)
[2021-05-18 12:55] VITALS: BP 138/88
[2021-05-18 16:14] VITALS: BP 134/83
[2021-05-18] MEDS: QUEtiapine FUMARATE 200 MG TABLET PO SCH (20:12)
[2021-05-18] MEDS: GuaiFENesin/D-METHORPHAN [SUGAR-FREE] 200-20MG/10 ML SYRUP UDCUP PO PRN (20:12)
[2021-05-18] MEDS: ZOLPIDEM TARTRATE 10 MG TABLET PO PRN (20:26)
[2021-05-19 00:30] VITALS: BP 113/75
[2021-05-19 04:19] VITALS: BP 110/67
[2021-05-19] MEDS: BuPROPion HCL XL 150 MG ER TABLET PO SCH (08:31)
[2021-05-19 09:31] VITALS: BP 122/73
[2021-05-19] MEDS: LORazepam 2 MG TABLET PO PRN (11:16)
[2021-05-19 12:36] VITALS: BP 110/63
[2021-05-19 16:23] VITALS: BP 146/84
[2021-05-19] MEDS: MAGNESIUM HYDROXIDE SUSPENSION 30 ML UDCUP PO PRN (18:02)
[2021-05-19] MEDS: QUEtiapine FUMARATE 200 MG TABLET PO SCH (20:17)
[2021-05-19] MEDS: ZOLPIDEM TARTRATE 10 MG TABLET PO PRN (20:28)
[2021-05-20 01:33] VITALS: BP 96/58
[2021-05-20 04:52] VITALS: BP 100/54
[2021-05-20] MEDS: BuPROPion HCL XL 150 MG ER TABLET PO SCH (08:19)
[2021-05-20] MEDS: MAGNESIUM HYDROXIDE SUSPENSION 30 ML UDCUP PO PRN (08:20)
[2021-05-20] MEDS: LORazepam 2 MG TABLET PO PRN ×2 (08:30→12:21)
[2021-05-20 09:00] VITALS: BP 140/80
[2021-05-20 12:00] VITALS: BP 130/78
[2021-05-20 16:30] VITALS: BP 113/74
[2021-05-20] MEDS: QUEtiapine FUMARATE 200 MG TABLET PO SCH (20:11)
[2021-05-21 01:21] VITALS: BP 98/57
[2021-05-21 06:22] VITALS: BP 94/87
[2021-05-21] MEDS: BuPROPion HCL XL 150 MG ER TABLET PO SCH (08:45)
[2021-05-21 09:33] VITALS: BP 113/70
[2021-05-21 12:30] VITALS: BP 122/75
[2021-05-21 12:41] LABS: GLUCOMETER DEV NAME(LOC) POC.BV
[2021-05-21] MEDS: MAGNESIUM HYDROXIDE SUSPENSION 30 ML UDCUP PO PRN (13:09)
[2021-05-21] MEDS: LORazepam 2 MG TABLET PO PRN (14:53)
[2021-05-21 16:23] VITALS: BP 123/80
[2021-05-21] MEDS: QUEtiapine FUMARATE 200 MG TABLET PO SCH (20:24)
[2021-05-22 01:20] VITALS: BP 121/77
[2021-05-22 06:27] LABS: GLUCOMETER DEV NAME(LOC) POC.BV
[2021-05-22] MEDS: BuPROPion HCL XL 150 MG ER TABLET PO SCH (08:54)
[2021-05-22 10:37] VITALS: BP 116/71
[2021-05-22 16:09] VITALS: BP 132/80
[2021-05-22] MEDS: LORazepam 2 MG TABLET PO PRN (16:31)
[2021-05-22] MEDS: ACETAMINOPHEN 325 MG TABLET PO PRN (18:57)
[2021-05-22 20:24] VITALS: BP 137/90
[2021-05-22] MEDS: IBUPROFEN 400 MG TABLET PO PRN (20:24)
[2021-05-22] MEDS: QUEtiapine FUMARATE 200 MG TABLET PO SCH (20:31)
[2021-05-23 00:24] VITALS: BP 125/82
[2021-05-23 08:14] VITALS: BP 96/58
[2021-05-23] MEDS: BuPROPion HCL XL 150 MG ER TABLET PO SCH (09:29)
[2021-05-23 16:09] VITALS: BP 106/80
[2021-05-23] MEDS: ACETAMINOPHEN 325 MG TABLET PO PRN (16:40)
[2021-05-23] MEDS: MAGNESIUM HYDROXIDE SUSPENSION 30 ML UDCUP PO PRN (16:41)
[2021-05-23] MEDS: LORazepam 2 MG TABLET PO PRN (16:41)
[2021-05-23] MEDS: QUEtiapine FUMARATE 200 MG TABLET PO SCH (20:11)
[2021-05-24 01:26] VITALS: BP 110/78
[2021-05-24 08:09] VITALS: BP 131/75
[2021-05-24] MEDS: BuPROPion HCL XL 150 MG ER TABLET PO SCH (08:29)
[2021-05-24 16:42] VITALS: BP 129/83
[2021-05-24] MEDS: ACETAMINOPHEN 325 MG TABLET PO PRN (17:46)
[2021-05-24] MEDS: LORazepam 2 MG TABLET PO PRN (17:47)
[2021-05-24] MEDS: ZOLPIDEM TARTRATE 10 MG TABLET PO PRN (20:43)
[2021-05-24] MEDS: QUEtiapine FUMARATE 200 MG TABLET PO SCH (20:43)
[2021-05-25 00:10] VITALS: BP 118/80
[2021-05-25 08:49] VITALS: BP 118/71
[2021-05-25] MEDS: BuPROPion HCL XL 150 MG ER TABLET PO SCH (09:06)
[2021-05-25 16:31] VITALS: BP 116/77
[2021-05-25] MEDS: LORazepam 2 MG TABLET PO PRN (16:53)
[2021-05-25] MEDS: QUEtiapine FUMARATE 200 MG TABLET PO SCH (20:10)
[2021-05-25] MEDS: ZOLPIDEM TARTRATE 10 MG TABLET PO PRN (21:15)
[2021-05-26 03:11] VITALS: BP 112/74
[2021-05-26] MEDS: BuPROPion HCL XL 150 MG ER TABLET PO SCH (08:09)
[2021-05-26 08:35] VITALS: BP 100/65
[2021-05-26] MEDS: MAGNESIUM HYDROXIDE SUSPENSION 30 ML UDCUP PO PRN (09:00)
[2021-05-26] MEDS: LORazepam 2 MG TABLET PO PRN ×2 (09:00→19:37)
[2021-05-26] MEDS: ACETAMINOPHEN 325 MG TABLET PO PRN (09:01)
[2021-05-26 16:26] VITALS: BP 106/64
[2021-05-26] MEDS: QUEtiapine FUMARATE 200 MG TABLET PO SCH (20:08)
[2021-05-27 05:59] VITALS: BP 105/62
[2021-05-27] MEDS: BuPROPion HCL XL 150 MG ER TABLET PO SCH (08:43)
[2021-05-27 08:59] VITALS: BP 101/60
[2021-05-27] MEDS: MAGNESIUM HYDROXIDE SUSPENSION 30 ML UDCUP PO PRN (12:27)
[2021-05-27] MEDS: LORazepam 2 MG TABLET PO PRN (12:27)
[2021-05-27] MEDS: ACETAMINOPHEN 325 MG TABLET PO PRN (12:29)
[2021-05-27 16:30] VITALS: BP 127/68
[2021-05-27] MEDS: QUEtiapine FUMARATE 200 MG TABLET PO SCH (20:36)
[2021-05-27] MEDS: ZOLPIDEM TARTRATE 10 MG TABLET PO PRN (20:40)
[2021-05-28 01:00] VITALS: BP 113/62
[2021-05-28 08:44] VITALS: BP 100/64
[2021-05-28] MEDS: BuPROPion HCL XL 150 MG ER TABLET PO SCH (09:50)
[2021-05-28 16:26] VITALS: BP 111/72
[2021-05-28] MEDS: ACETAMINOPHEN 325 MG TABLET PO PRN (16:29)
[2021-05-28] MEDS: QUEtiapine FUMARATE 200 MG TABLET PO SCH (20:30)
[2021-05-28] MEDS: ZOLPIDEM TARTRATE 10 MG TABLET PO PRN (21:06)
[2021-05-28 22:43] VITALS: BP 119/76
[2021-05-28] MEDS: IBUPROFEN 400 MG TABLET PO PRN (22:43)
[2021-05-29 00:45] VITALS: BP 115/76
[2021-05-29 07:27] LABS: COVID AG,FIA SOURCE NASOPHARYNGEAL
[2021-05-29] MEDS: BuPROPion HCL XL 150 MG ER TABLET PO SCH (08:21)
[2021-05-29 08:42] VITALS: BP 127/80
[2021-05-29] MEDS: LORazepam 2 MG TABLET PO PRN (16:16)
[2021-05-29 16:30] VITALS: BP 134/91
[2021-05-29 20:31] VITALS: BP 127/82
[2021-05-29] MEDS: QUEtiapine FUMARATE 200 MG TABLET PO SCH (20:33)
[2021-05-29] MEDS: IBUPROFEN 400 MG TABLET PO PRN (20:33)
[2021-05-30 00:56] VITALS: BP 104/62
[2021-05-30 08:28] VITALS: BP 112/58
[2021-05-30] MEDS: BuPROPion HCL XL 150 MG ER TABLET PO SCH (08:37)
[2021-05-30] MEDS: LORazepam 2 MG TABLET PO PRN ×2 (08:38→17:46)
[2021-05-30] MEDS: GABAPENTIN 100 MG CAPSULE PO SCH ×3 (10:35→20:53)
[2021-05-30 16:27] VITALS: BP 144/73
[2021-05-30] MEDS: ZOLPIDEM TARTRATE 10 MG TABLET PO PRN (20:53)
[2021-05-30] MEDS: QUEtiapine FUMARATE 200 MG TABLET PO SCH (20:53)
[2021-05-31 05:33] VITALS: BP 135/63
[2021-05-31 08:36] VITALS: BP 105/77
[2021-05-31] MEDS: GABAPENTIN 100 MG CAPSULE PO SCH ×3 (08:38→21:03)
[2021-05-31] MEDS: BuPROPion HCL XL 150 MG ER TABLET PO SCH (08:38)
[2021-05-31] MEDS: LORazepam 2 MG TABLET PO PRN (12:06)
[2021-05-31 16:31] VITALS: BP 116/66
[2021-05-31] MEDS: QUEtiapine FUMARATE 200 MG TABLET PO SCH (21:03)
[2021-05-31] MEDS: IBUPROFEN 400 MG TABLET PO PRN (21:06)
[2021-05-31 21:07] VITALS: BP 137/88
[2021-06-01 05:45] VITALS: BP 108/72
[2021-06-01] MEDS: GABAPENTIN 100 MG CAPSULE PO SCH ×3 (08:19→20:28)
[2021-06-01] MEDS: BuPROPion HCL XL 150 MG ER TABLET PO SCH (08:19)
[2021-06-01 08:25] VITALS: BP 113/61
[2021-06-01] MEDS: IBUPROFEN 400 MG TABLET PO PRN (09:58)
[2021-06-01] MEDS ORDERED: GABAPENTIN 100 MG CAPSULE PO ONE (10:15)
[2021-06-01 16:14] VITALS: BP 131/79
[2021-06-01] MEDS: QUEtiapine FUMARATE 200 MG TABLET PO SCH (20:28)
[2021-06-02 00:15] VITALS: BP 109/58
[2021-06-02 08:11] VITALS: BP 131/78
[2021-06-02] MEDS: GABAPENTIN 100 MG CAPSULE PO SCH ×3 (09:43→20:20)
[2021-06-02] MEDS: BuPROPion HCL XL 150 MG ER TABLET PO SCH (09:43)
[2021-06-02] MEDS: IBUPROFEN 400 MG TABLET PO PRN ×2 (13:00→21:23)
[2021-06-02 16:13] VITALS: BP 142/83
[2021-06-02] MEDS: QUEtiapine FUMARATE 200 MG TABLET PO SCH (20:21)
[2021-06-03 05:52] VITALS: BP 125/72
[2021-06-03 08:23] VITALS: BP 110/76
[2021-06-03] MEDS: BuPROPion HCL XL 150 MG ER TABLET PO SCH (08:26)
[2021-06-03] MEDS: GABAPENTIN 100 MG CAPSULE PO SCH ×3 (08:26→20:27)
[2021-06-03] MEDS: MAGNESIUM HYDROXIDE SUSPENSION 30 ML UDCUP PO PRN (08:30)
[2021-06-03 09:06] VITALS: BP 113/68
[2021-06-03] MEDS: IBUPROFEN 400 MG TABLET PO PRN ×2 (09:06→19:01)
[2021-06-03 16:18] VITALS: BP 138/83
[2021-06-03 19:00] VITALS: BP 134/83
[2021-06-03] MEDS: QUEtiapine FUMARATE 200 MG TABLET PO SCH (20:27)
[2021-06-04] MEDS: GABAPENTIN 100 MG CAPSULE PO SCH (08:09)
[2021-06-04] MEDS: BuPROPion HCL XL 150 MG ER TABLET PO SCH (08:09)
[2021-06-04 08:22] VITALS: BP 127/85
[2021-06-04 09:25] VITALS: BP 125/71
[2021-06-04] MEDS: IBUPROFEN 400 MG TABLET PO PRN (09:25)
[2021-06-04] MEDS ORDERED: LORazepam 2 MG TABLET PO PRN (09:30)
[2021-06-04] MEDS: ACETAMINOPHEN 325 MG TABLET PO PRN (14:21)
[2021-06-04 16:37] VITALS: BP 138/85
[2021-06-04] MEDS: GABAPENTIN 300 MG CAPSULE PO SCH ×2 (17:23→20:41)
[2021-06-04] MEDS: QUEtiapine FUMARATE 200 MG TABLET PO SCH (20:41)
[2021-06-05 02:11] VITALS: BP 128/86
[2021-06-05] MEDS: GABAPENTIN 300 MG CAPSULE PO SCH ×3 (09:10→20:32)
[2021-06-05] MEDS: BuPROPion HCL XL 150 MG ER TABLET PO SCH (09:10)
[2021-06-05 11:11] LABS: GLUCOMETER DEV NAME(LOC) POC.BV
[2021-06-05 12:51] VITALS: BP 116/85
[2021-06-05 16:48] VITALS: BP 114/72
[2021-06-05] MEDS: QUEtiapine FUMARATE 200 MG TABLET PO SCH (20:32)
[2021-06-06 00:56] VITALS: BP 119/70
[2021-06-06] MEDS: GABAPENTIN 300 MG CAPSULE PO SCH ×2 (08:34→16:05)
[2021-06-06] MEDS: BuPROPion HCL XL 150 MG ER TABLET PO SCH (08:34)
[2021-06-06 10:26] VITALS: BP 117/68
[2021-06-06] MEDS ORDERED: QUET200T PO (14:07)
[2021-06-06] MEDS ORDERED: BUPR-93 PO ×2 (14:07→14:09)
[2021-06-06] MEDS ORDERED: GABA-1181 PO (14:07)
== END 2021-06-06 16:00 | disposition home or self-care (01) | DRG 885 ==
LOC: B3A 16:40 → B2X 05-15 14:39 → B2S 05-21 13:53
PROVIDERS: ADMIT Psychiatry & Neurology Psychiatry; ATTEND Psychiatry & Neurology Psychiatry
DX: F31.5 Bipolar disorder, current episode depressed, severe, with psychotic features (principal); U07.1 COVID-19; R45.851 Suicidal ideations; F15.10 Other stimulant abuse, uncomplicated; E78.5 Hyperlipidemia, unspecified; I10 Essential (primary) hypertension; F41.9 Anxiety disorder, unspecified; F10.10 Alcohol abuse, uncomplicated; Y90.9 Presence of alcohol in blood, level not specified; J44.9 Chronic obstructive pulmonary disease, unspecified; Z20.822 Contact with and (suspected) exposure to COVID-19; K21.9 Gastro-esophageal reflux disease without esophagitis; E11.9 Type 2 diabetes mellitus without complications; Z59.00 Homelessness unspecified; Z79.899 Other long term (current) drug therapy; Z71.41 Alcohol abuse counseling and surveillance of alcoholic
CPT/HCPCS: 80053; 80061; 80307; 81003; 83036; 84436; 84439; 84443; 85025; 86592; 87081; G0480

== ENCOUNTER 2021-06-14 14:56 | Inpatient (IN) | payer MEDICARE, MEDICAID ==
[~2021-06-14] VITALS: Ht 188 cm; Wt 106.6 kg
[~2021-06-14 14:56] MED LIST changes: +GABA-1181 PO
[2021-06-14 15:32] LABS: COVID AG,FIA SOURCE NASAL SWAB
[2021-06-14 15:38] LABS: BASOPHILS % (AUTO) 0.8 % (0.0-2.0); EOSINOPHILS % (AUTO) 1.4 % (1.0-6.0); HEMATOCRIT 38.4 % (41-53); HEMOGLOBIN 13.2 g/dL (13.5-17.5); LYMPHOCYTES # (AUTO) 1.2 K/uL (1.0-4.8); LYMPHOCYTES % (AUTO) 10.8 % (22.0-44.0); MEAN CORPUSCULAR HGB CONC 34.4 G/dL (31.0-37.0); MEAN CORPUSCULAR VOLUME 87 fL (80-100); MONOCYTES # (AUTO) 0.8 K/uL (0.1-1.0); MONOCYTES % (AUTO) 7.4 % (2.0-9.0); NEUTROPHILS # (AUTO) 8.7 K/uL (1.8-7.7); NEUTROPHILS % (AUTO) 79.6 % (40.0-70.0); PLATELET COUNT (AUTO) 265 K/uL (150-450); RED CELL DISTRIBUTION WIDTH 13.2 % (11.5-14.5)
[2021-06-14 15:44] LABS: ANION GAP 12 mmol/L (8-16); CALCIUM, TOTAL 8.8 mg/dL (8.8-10.5); CARBON DIOXIDE 25 mmol/L (22-29); CHLORIDE 99 mmol/L (98-107); CREATININE 1.02 mg/dL (0.60-1.30); GLOMERULAR FILTR. RATE CALC > 60 mL/min (>60); GLUCOSE,RANDOM 116 mg/dL (70-110); POTASSIUM 3.7 mmol/L (3.5-5.1); SODIUM SERUM 136 mmol/L (136-145); UREA NITROGEN, BLOOD 12 mg/dL (7-18)
[2021-06-14 15:51] LABS: ALANINE AMINOTRANSFERASE 33 U/L (12-78); ALBUMIN 3.4 g/dL (3.4-5.0); ALKALINE PHOSPHATASE 110 U/L (46-116); ASPARTATE AMINOTRANSFERASE 28 U/L (15-37); BILIRUBIN,TOTAL 0.7 mg/dL (0.1-1.0); TOTAL PROTEIN, SERUM 7.5 g/dL (6.4-8.2)
[2021-06-14] MEDS ORDERED: QUEtiapine FUMARATE 100 MG TABLET PO ONE (16:00)
[2021-06-14] MEDS ORDERED: GuaiFENesin/D-METHORPHAN [SUGAR-FREE] 200-20MG/10 ML SYRUP UDCUP PO PRN (17:30)
[2021-06-14] MEDS ORDERED: HydrOXYzine PAMOATE 50 MG CAPSULE PO PRN (17:30)
[2021-06-14] MEDS ORDERED: LORazepam 2 MG TABLET PO PRN (17:30)
[2021-06-14] MEDS ORDERED: LOPERAMIDE HCL 2 MG CAPSULE PO PRN (17:30)
[2021-06-14] MEDS ORDERED: CYANOCOBALAMIN 1,000 MCG/ML VIAL IM ONE (17:30)
[2021-06-14] MEDS: THIAMINE 100 MG TABLET PO SCH (18:48)
[2021-06-14 20:50] VITALS: BP 110/68
[2021-06-14] MEDS ORDERED: -PHARMACY VACCINE NOTE- MISC ONE (21:15)
[2021-06-14 21:30] VITALS: BP 106/70
[2021-06-14] MEDS ORDERED: ACETAMINOPHEN 325 MG TABLET PO PRN (22:00)
[2021-06-14 22:06] VITALS: BP 108/62
[2021-06-14] MEDS ORDERED: IBUPROFEN 400 MG TABLET PO PRN (22:15)
[2021-06-14 23:05] VITALS: BP 110/68
[2021-06-15] MEDS ORDERED: LORazepam 2 MG TABLET PO PRN (07:00)
[2021-06-15 07:27] LABS: HEMOGLOBIN A1C 6.2 % (3.8-5.6)
[2021-06-15 07:39] LABS: CHOL/HDL RATIO 3.8 (4.2-7.3); THYROID STIMULATING HORMONE 1.37 uIU/mL (0.36-3.74)
[2021-06-15 08:25] VITALS: BP 100/60
[2021-06-15] MEDS: LORazepam 2 MG TABLET PO SCH ×4 (08:34→20:42)
[2021-06-15] MEDS: FOLIC ACID 1 MG TABLET PO SCH (08:34)
[2021-06-15] MEDS: MULTIVITAMINS WITH MINERALS, THERAPEUTIC TABLET PO SCH (08:34)
[2021-06-15] MEDS: THIAMINE 100 MG TABLET PO SCH ×2 (08:34→16:15)
[2021-06-15] MEDS: BACITRACIN 28 GM OINTMENT TP SCH ×2 (08:35→16:15)
[2021-06-15] MEDS: BuPROPion HCL XL 150 MG ER TABLET PO SCH (12:06)
[2021-06-15] MEDS: GABAPENTIN 300 MG CAPSULE PO SCH ×3 (12:06→20:30)
[2021-06-15 13:05] VITALS: BP 100/60
[2021-06-15 16:18] VITALS: BP 120/73
[2021-06-15 20:02] VITALS: BP 97/52
[2021-06-15] MEDS: QUEtiapine FUMARATE 200 MG TABLET PO SCH (20:30)
[2021-06-16 01:13] VITALS: BP 104/62
[2021-06-16] MEDS: GABAPENTIN 300 MG CAPSULE PO SCH ×3 (08:48→20:12)
[2021-06-16] MEDS: THIAMINE 100 MG TABLET PO SCH ×2 (08:48→16:53)
[2021-06-16] MEDS: BuPROPion HCL XL 150 MG ER TABLET PO SCH (08:48)
[2021-06-16] MEDS: MULTIVITAMINS WITH MINERALS, THERAPEUTIC TABLET PO SCH (08:48)
[2021-06-16] MEDS: LORazepam 2 MG TABLET PO SCH ×4 (08:48→20:12)
[2021-06-16] MEDS: FOLIC ACID 1 MG TABLET PO SCH (08:48)
[2021-06-16] MEDS: BACITRACIN 28 GM OINTMENT TP SCH ×2 (08:49→16:53)
[2021-06-16] MEDS: QUEtiapine FUMARATE 200 MG TABLET PO SCH (20:12)
[2021-06-17 05:59] VITALS: BP 114/67
[2021-06-17] MEDS ORDERED: LORazepam 1 MG TABLET PO PRN (07:00)
[2021-06-17 08:40] VITALS: BP 123/69
[2021-06-17] MEDS: BuPROPion HCL XL 150 MG ER TABLET PO SCH (09:08)
[2021-06-17] MEDS: LORazepam 1 MG TABLET PO SCH ×4 (09:08→20:37)
[2021-06-17] MEDS: MULTIVITAMINS WITH MINERALS, THERAPEUTIC TABLET PO SCH (09:08)
[2021-06-17] MEDS: BACITRACIN 28 GM OINTMENT TP SCH ×2 (09:08→16:33)
[2021-06-17] MEDS: GABAPENTIN 300 MG CAPSULE PO SCH ×3 (09:08→20:37)
[2021-06-17] MEDS: FOLIC ACID 1 MG TABLET PO SCH (09:08)
[2021-06-17] MEDS: THIAMINE 100 MG TABLET PO SCH ×2 (09:08→16:32)
[2021-06-17 12:22] VITALS: BP 120/72
[2021-06-17 16:08] VITALS: BP 110/63
[2021-06-17] MEDS: QUEtiapine FUMARATE 200 MG TABLET PO SCH (20:38)
[2021-06-18 06:14] VITALS: BP 110/66
[2021-06-18] MEDS ORDERED: LORazepam 1 MG TABLET PO PRN (07:00)
[2021-06-18 08:30] VITALS: BP 112/66
[2021-06-18] MEDS: BuPROPion HCL XL 150 MG ER TABLET PO SCH (08:40)
[2021-06-18] MEDS: GABAPENTIN 300 MG CAPSULE PO SCH ×3 (08:40→20:09)
[2021-06-18] MEDS: FOLIC ACID 1 MG TABLET PO SCH (08:40)
[2021-06-18] MEDS: MULTIVITAMINS WITH MINERALS, THERAPEUTIC TABLET PO SCH (08:40)
[2021-06-18] MEDS: BACITRACIN 28 GM OINTMENT TP SCH ×2 (08:40→16:08)
[2021-06-18] MEDS: THIAMINE 100 MG TABLET PO SCH ×2 (08:40→16:07)
[2021-06-18 16:28] VITALS: BP 106/64
[2021-06-18 17:40] VITALS: BP 118/87
[2021-06-18] MEDS: QUEtiapine FUMARATE 200 MG TABLET PO SCH (20:09)
[2021-06-19 00:23] VITALS: BP 115/73
[2021-06-19 08:21] VITALS: BP 108/61
[2021-06-19] MEDS: GABAPENTIN 300 MG CAPSULE PO SCH ×3 (08:29→20:10)
[2021-06-19] MEDS: BuPROPion HCL XL 150 MG ER TABLET PO SCH (08:29)
[2021-06-19] MEDS: MULTIVITAMINS WITH MINERALS, THERAPEUTIC TABLET PO SCH (08:29)
[2021-06-19] MEDS: THIAMINE 100 MG TABLET PO SCH ×2 (08:29→16:11)
[2021-06-19] MEDS: FOLIC ACID 1 MG TABLET PO SCH (08:29)
[2021-06-19] MEDS: BACITRACIN 28 GM OINTMENT TP SCH ×2 (08:30→16:11)
[2021-06-19 10:46] LABS: GLUCOMETER DEV NAME(LOC) POC.BV
[2021-06-19 16:12] VITALS: BP 123/60
[2021-06-19] MEDS: QUEtiapine FUMARATE 200 MG TABLET PO SCH (20:10)
[2021-06-19] MEDS: ZOLPIDEM TARTRATE 10 MG TABLET PO PRN (21:24)
[2021-06-20 00:30] VITALS: BP 119/70
[2021-06-20] MEDS: BuPROPion HCL XL 150 MG ER TABLET PO SCH (08:30)
[2021-06-20] MEDS: THIAMINE 100 MG TABLET PO SCH ×2 (08:30→16:23)
[2021-06-20] MEDS: MULTIVITAMINS WITH MINERALS, THERAPEUTIC TABLET PO SCH (08:30)
[2021-06-20] MEDS: FOLIC ACID 1 MG TABLET PO SCH (08:30)
[2021-06-20] MEDS: GABAPENTIN 300 MG CAPSULE PO SCH ×3 (08:30→20:30)
[2021-06-20 08:38] VITALS: BP 120/70
[2021-06-20] MEDS: BACITRACIN 28 GM OINTMENT TP SCH ×2 (09:46→16:28)
[2021-06-20] MEDS: HALOPERIDOL 5 MG TABLET PO PRN (16:24)
[2021-06-20 16:28] VITALS: BP 137/73
[2021-06-20] MEDS: HydrOXYzine PAMOATE 50 MG CAPSULE PO PRN (17:39)
[2021-06-20] MEDS: QUEtiapine FUMARATE 200 MG TABLET PO SCH (20:30)
[2021-06-20] MEDS: ZOLPIDEM TARTRATE 10 MG TABLET PO PRN (20:30)
[2021-06-21 01:02] VITALS: BP 122/70
[2021-06-21 08:19] VITALS: BP 120/72
[2021-06-21] MEDS: FOLIC ACID 1 MG TABLET PO SCH (08:26)
[2021-06-21] MEDS: THIAMINE 100 MG TABLET PO SCH ×2 (08:26→15:56)
[2021-06-21] MEDS: MULTIVITAMINS WITH MINERALS, THERAPEUTIC TABLET PO SCH (08:26)
[2021-06-21] MEDS: BuPROPion HCL XL 150 MG ER TABLET PO SCH (08:26)
[2021-06-21] MEDS: GABAPENTIN 300 MG CAPSULE PO SCH ×3 (08:26→20:16)
[2021-06-21] MEDS: BACITRACIN 28 GM OINTMENT TP SCH ×2 (09:00→15:57)
[2021-06-21] MEDS ORDERED: MAG HYDROX/AL HYDROX/SIMETH ES 30 ML SUSPENSION UDCUP PO PRN (11:45)
[2021-06-21] MEDS ORDERED: DOCUSATE SODIUM 100 MG CAPSULE PO PRN (11:45)
[2021-06-21] MEDS ORDERED: LOPERAMIDE HCL 2 MG CAPSULE PO PRN (11:45)
[2021-06-21] MEDS ORDERED: MAGNESIUM HYDROXIDE SUSPENSION 30 ML UDCUP PO PRN (11:45)
[2021-06-21] MEDS: HydrOXYzine PAMOATE 50 MG CAPSULE PO PRN (16:16)
[2021-06-21 16:17] VITALS: BP 115/79
[2021-06-21] MEDS: QUEtiapine FUMARATE 200 MG TABLET PO SCH (20:16)
[2021-06-21] MEDS: ZOLPIDEM TARTRATE 10 MG TABLET PO PRN (20:16)
[2021-06-22 00:17] VITALS: BP 117/74
[2021-06-22 08:15] VITALS: BP 123/71
[2021-06-22] MEDS: THIAMINE 100 MG TABLET PO SCH ×2 (08:38→16:52)
[2021-06-22] MEDS: MULTIVITAMINS WITH MINERALS, THERAPEUTIC TABLET PO SCH (08:38)
[2021-06-22] MEDS: FOLIC ACID 1 MG TABLET PO SCH (08:38)
[2021-06-22] MEDS: BuPROPion HCL XL 150 MG ER TABLET PO SCH (08:38)
[2021-06-22] MEDS: GABAPENTIN 300 MG CAPSULE PO SCH ×3 (08:38→20:11)
[2021-06-22] MEDS: BACITRACIN 28 GM OINTMENT TP SCH ×2 (08:40→16:56)
[2021-06-22 16:18] VITALS: BP 130/73
[2021-06-22] MEDS: QUEtiapine FUMARATE 200 MG TABLET PO SCH (20:11)
[2021-06-22] MEDS: ZOLPIDEM TARTRATE 10 MG TABLET PO PRN (22:26)
[2021-06-23 01:12] VITALS: BP 128/76
[2021-06-23 08:10] VITALS: BP 104/63
[2021-06-23] MEDS: GABAPENTIN 300 MG CAPSULE PO SCH ×3 (08:26→20:05)
[2021-06-23] MEDS: THIAMINE 100 MG TABLET PO SCH ×2 (08:26→16:10)
[2021-06-23] MEDS: BuPROPion HCL XL 150 MG ER TABLET PO SCH (08:26)
[2021-06-23] MEDS: FOLIC ACID 1 MG TABLET PO SCH (08:26)
[2021-06-23] MEDS: MULTIVITAMINS WITH MINERALS, THERAPEUTIC TABLET PO SCH (08:26)
[2021-06-23] MEDS: BACITRACIN 28 GM OINTMENT TP SCH ×2 (08:27→16:11)
[2021-06-23 16:08] VITALS: BP 120/68
[2021-06-23] MEDS: QUEtiapine FUMARATE 200 MG TABLET PO SCH (20:06)
[2021-06-24 01:43] VITALS: BP 119/74
[2021-06-24 04:31] VITALS: BP 104/71
[2021-06-24] MEDS: HALOPERIDOL 5 MG TABLET PO PRN (04:35)
[2021-06-24] MEDS: MULTIVITAMINS WITH MINERALS, THERAPEUTIC TABLET PO SCH (08:13)
[2021-06-24] MEDS: FOLIC ACID 1 MG TABLET PO SCH (08:14)
[2021-06-24] MEDS: GABAPENTIN 300 MG CAPSULE PO SCH ×3 (08:14→20:04)
[2021-06-24] MEDS: BuPROPion HCL XL 150 MG ER TABLET PO SCH (08:14)
[2021-06-24] MEDS: BACITRACIN 28 GM OINTMENT TP SCH ×2 (08:14→16:13)
[2021-06-24 08:21] VITALS: BP 113/63
[2021-06-24 16:18] VITALS: BP 105/65
[2021-06-24] MEDS: HydrOXYzine PAMOATE 50 MG CAPSULE PO PRN (18:10)
[2021-06-24] MEDS: QUEtiapine FUMARATE 200 MG TABLET PO SCH (20:04)
[2021-06-25 01:27] VITALS: BP 107/63
[2021-06-25 08:05] VITALS: BP 109/52
[2021-06-25] MEDS: GABAPENTIN 300 MG CAPSULE PO SCH ×3 (08:56→20:33)
[2021-06-25] MEDS: MULTIVITAMINS WITH MINERALS, THERAPEUTIC TABLET PO SCH (08:56)
[2021-06-25] MEDS: BuPROPion HCL XL 150 MG ER TABLET PO SCH (08:56)
[2021-06-25] MEDS: BACITRACIN 28 GM OINTMENT TP SCH ×2 (09:31→16:33)
[2021-06-25 16:24] VITALS: BP 122/81
[2021-06-25] MEDS: QUEtiapine FUMARATE 200 MG TABLET PO SCH (20:33)
[2021-06-25] MEDS: ZOLPIDEM TARTRATE 10 MG TABLET PO PRN (21:11)
[2021-06-26 06:54] VITALS: BP 118/78
[2021-06-26 08:30] VITALS: BP 103/65
[2021-06-26 08:46] LABS: GLUCOMETER DEV NAME(LOC) POC.BV
[2021-06-26] MEDS: MULTIVITAMINS WITH MINERALS, THERAPEUTIC TABLET PO SCH (09:14)
[2021-06-26] MEDS: BuPROPion HCL XL 150 MG ER TABLET PO SCH (09:14)
[2021-06-26] MEDS: GABAPENTIN 300 MG CAPSULE PO SCH ×3 (09:15→20:22)
[2021-06-26] MEDS: BACITRACIN 28 GM OINTMENT TP SCH ×2 (09:16→17:46)
[2021-06-26 16:29] VITALS: BP 115/69
[2021-06-26] MEDS: QUEtiapine FUMARATE 200 MG TABLET PO SCH (20:22)
[2021-06-26] MEDS: ZOLPIDEM TARTRATE 10 MG TABLET PO PRN (21:34)
[2021-06-27 01:51] VITALS: BP 112/67
[2021-06-27 08:20] VITALS: BP 118/62
[2021-06-27] MEDS: MULTIVITAMINS WITH MINERALS, THERAPEUTIC TABLET PO SCH (08:45)
[2021-06-27] MEDS: GABAPENTIN 300 MG CAPSULE PO SCH ×3 (08:45→20:41)
[2021-06-27] MEDS: BuPROPion HCL XL 150 MG ER TABLET PO SCH (08:45)
[2021-06-27] MEDS: BACITRACIN 28 GM OINTMENT TP SCH ×2 (08:46→16:33)
[2021-06-27 16:15] VITALS: BP 111/76
[2021-06-27] MEDS: QUEtiapine FUMARATE 200 MG TABLET PO SCH (20:41)
[2021-06-27] MEDS: ZOLPIDEM TARTRATE 10 MG TABLET PO PRN (22:31)
[2021-06-28 03:07] VITALS: BP 116/74
[2021-06-28 08:35] VITALS: BP 117/72
[2021-06-28] MEDS: BuPROPion HCL XL 150 MG ER TABLET PO SCH (08:54)
[2021-06-28] MEDS: MULTIVITAMINS WITH MINERALS, THERAPEUTIC TABLET PO SCH (08:54)
[2021-06-28] MEDS: GABAPENTIN 300 MG CAPSULE PO SCH ×3 (08:54→20:18)
[2021-06-28] MEDS: BACITRACIN 28 GM OINTMENT TP SCH ×2 (09:25→16:46)
[2021-06-28 16:15] VITALS: BP 141/75
[2021-06-28] MEDS: ZOLPIDEM TARTRATE 10 MG TABLET PO PRN (20:18)
[2021-06-28] MEDS: QUEtiapine FUMARATE 200 MG TABLET PO SCH (20:18)
[2021-06-29 04:11] VITALS: BP 107/69
[2021-06-29] MEDS: GABAPENTIN 300 MG CAPSULE PO SCH ×3 (08:21→20:25)
[2021-06-29] MEDS: BuPROPion HCL XL 150 MG ER TABLET PO SCH (08:21)
[2021-06-29] MEDS: MULTIVITAMINS WITH MINERALS, THERAPEUTIC TABLET PO SCH (08:21)
[2021-06-29] MEDS: BACITRACIN 28 GM OINTMENT TP SCH ×2 (08:28→17:00)
[2021-06-29 08:34] VITALS: BP 101/64
[2021-06-29 16:17] VITALS: BP 116/75
[2021-06-29] MEDS: QUEtiapine FUMARATE 200 MG TABLET PO SCH (20:25)
[2021-06-29] MEDS: ZOLPIDEM TARTRATE 10 MG TABLET PO PRN (20:25)
[2021-06-30 01:16] VITALS: BP 111/65
[2021-06-30] MEDS: MULTIVITAMINS WITH MINERALS, THERAPEUTIC TABLET PO SCH (08:08)
[2021-06-30] MEDS: GABAPENTIN 300 MG CAPSULE PO SCH ×3 (08:09→20:05)
[2021-06-30] MEDS: BuPROPion HCL XL 150 MG ER TABLET PO SCH (08:09)
[2021-06-30] MEDS: BACITRACIN 28 GM OINTMENT TP SCH ×2 (08:10→16:40)
[2021-06-30 08:29] VITALS: BP 106/58
[2021-06-30 16:13] VITALS: BP 113/78
[2021-06-30] MEDS: QUEtiapine FUMARATE 200 MG TABLET PO SCH (20:05)
[2021-07-01 06:40] VITALS: BP 101/74
[2021-07-01] MEDS: BuPROPion HCL XL 150 MG ER TABLET PO SCH (08:21)
[2021-07-01] MEDS: MULTIVITAMINS WITH MINERALS, THERAPEUTIC TABLET PO SCH (08:22)
[2021-07-01] MEDS: BACITRACIN 28 GM OINTMENT TP SCH ×2 (08:22→16:35)
[2021-07-01] MEDS: GABAPENTIN 300 MG CAPSULE PO SCH ×3 (08:22→20:28)
[2021-07-01 08:24] VITALS: BP 125/65
[2021-07-01 16:07] VITALS: BP 133/69
[2021-07-01] MEDS: QUEtiapine FUMARATE 200 MG TABLET PO SCH (20:28)
[2021-07-02 06:28] VITALS: BP 103/57
[2021-07-02 08:26] VITALS: BP 106/60
[2021-07-02] MEDS: GABAPENTIN 300 MG CAPSULE PO SCH (08:31)
[2021-07-02] MEDS: MULTIVITAMINS WITH MINERALS, THERAPEUTIC TABLET PO SCH (08:31)
[2021-07-02] MEDS: BuPROPion HCL XL 150 MG ER TABLET PO SCH (08:31)
[2021-07-02] MEDS: BACITRACIN 28 GM OINTMENT TP SCH ×2 (08:32→16:29)
[2021-07-02 16:16] VITALS: BP 105/69
[2021-07-02] MEDS: GABAPENTIN 400 MG CAPSULE PO SCH ×2 (16:28→20:35)
[2021-07-02] MEDS: QUEtiapine FUMARATE 200 MG TABLET PO SCH (20:35)
[2021-07-03 01:59] VITALS: BP 113/65
[2021-07-03] MEDS: GABAPENTIN 400 MG CAPSULE PO SCH ×3 (08:05→20:03)
[2021-07-03] MEDS: BuPROPion HCL XL 150 MG ER TABLET PO SCH (08:05)
[2021-07-03] MEDS: MULTIVITAMINS WITH MINERALS, THERAPEUTIC TABLET PO SCH (08:05)
[2021-07-03 08:26] LABS: GLUCOMETER DEV NAME(LOC) POC.BV
[2021-07-03 08:29] VITALS: BP 112/58
[2021-07-03 16:19] VITALS: BP 113/73
[2021-07-03] MEDS: QUEtiapine FUMARATE 200 MG TABLET PO SCH (20:03)
[2021-07-03] MEDS: ZOLPIDEM TARTRATE 10 MG TABLET PO PRN (20:04)
[2021-07-04 00:42] VITALS: BP 118/66
[2021-07-04 08:17] VITALS: BP 115/64
[2021-07-04] MEDS: BuPROPion HCL XL 150 MG ER TABLET PO SCH (08:44)
[2021-07-04] MEDS: MULTIVITAMINS WITH MINERALS, THERAPEUTIC TABLET PO SCH (08:44)
[2021-07-04] MEDS: GABAPENTIN 400 MG CAPSULE PO SCH (08:44)
[2021-07-04] MEDS ORDERED: GABA-1201 PO ×3 (10:35→12:00)
[2021-07-04] MEDS ORDERED: QUET200T PO (12:00)
[2021-07-04] MEDS ORDERED: BUPR-93 PO (12:00)
[2021-07-04] MEDS ORDERED: ALBU8HFA IH (20:04)
[2021-07-04] MEDS ORDERED: CLON0.1T PO (20:04)
== END 2021-07-04 11:30 | disposition home or self-care (01) | DRG 885 ==
LOC: EMS 15:08 → UNDOADMIN 18:20 → B3A 18:20 → B2S 18:20
PROVIDERS: ADMIT Psychiatry & Neurology Psychiatry; ATTEND Psychiatry & Neurology Psychiatry
DX: F31.4 Bipolar disorder, current episode depressed, severe, without psychotic features (principal); R45.851 Suicidal ideations; Z20.822 Contact with and (suspected) exposure to COVID-19; D64.9 Anemia, unspecified; E78.5 Hyperlipidemia, unspecified; F10.20 Alcohol dependence, uncomplicated; F15.10 Other stimulant abuse, uncomplicated; F20.9 Schizophrenia, unspecified; F41.9 Anxiety disorder, unspecified; I10 Essential (primary) hypertension; J44.9 Chronic obstructive pulmonary disease, unspecified; K21.9 Gastro-esophageal reflux disease without esophagitis; Z59.00 Homelessness unspecified; Z79.899 Other long term (current) drug therapy; Z91.14 Patient's other noncompliance with medication regimen; Z91.51 Personal history of suicidal behavior
CPT/HCPCS: 80053; 80061; 83036; 84443; 84481; 85025; 87081; 99285; G0480; J3420

== ENCOUNTER 2021-07-20 15:23 | Inpatient (IN) | payer MEDICARE, MEDICAID ==
[~2021-07-20] VITALS: Ht 185.4 cm; Wt 112.5 kg
[~2021-07-20 15:23] MED LIST changes: +ALBU8HFA IH; +CLON0.1T PO; -GABA-1181 PO; +GABA-1201 PO; +[UNRECOGNIZED DRUG - CODE] PO
[2021-07-20 20:05] VITALS: BP 139/86
[2021-07-20] MEDS ORDERED: HALOPERIDOL 5 MG TABLET PO PRN (20:15)
[2021-07-20] MEDS ORDERED: ZOLPIDEM TARTRATE 10 MG TABLET PO PRN (20:15)
[2021-07-20] MEDS: GABAPENTIN 400 MG CAPSULE PO SCH (20:54)
[2021-07-20] MEDS: QUEtiapine FUMARATE 200 MG TABLET PO SCH (20:54)
[2021-07-21 07:33] LABS: BASOPHILS % (AUTO) 0.8 % (0.0-2.0); HEMATOCRIT 40.8 % (41-53); HEMOGLOBIN 13.8 g/dL (13.5-17.5); LYMPHOCYTES # (AUTO) 1.6 K/uL (1.0-4.8); LYMPHOCYTES % (AUTO) 30.3 % (22.0-44.0); MEAN CORPUSCULAR HEMOGLOBIN 29.7 pg (26.0-34.0); MEAN CORPUSCULAR HGB CONC 33.9 G/dL (31.0-37.0); MEAN CORPUSCULAR VOLUME 88 fL (80-100); MONOCYTES # (AUTO) 0.5 K/uL (0.1-1.0); MONOCYTES % (AUTO) 8.5 % (2.0-9.0); NEUTROPHILS # (AUTO) 2.9 K/uL (1.8-7.7); NEUTROPHILS % (AUTO) 54.4 % (40.0-70.0); PLATELET COUNT (AUTO) 273 K/uL (150-450); RED BLOOD CELL COUNT(AUTO) 4.66 MIL/uL (4.50-5.90); RED CELL DISTRIBUTION WIDTH 14.1 % (11.5-14.5)
[2021-07-21 07:49] LABS: ALANINE AMINOTRANSFERASE 40 U/L (12-78); ALKALINE PHOSPHATASE 75 U/L (46-116); ANION GAP 8 mmol/L (8-16); ASPARTATE AMINOTRANSFERASE 16 U/L (15-37); BILIRUBIN,TOTAL 0.2 mg/dL (0.1-1.0); CALCIUM, TOTAL 8.8 mg/dL (8.8-10.5); CARBON DIOXIDE 25 mmol/L (22-29); CHLORIDE 101 mmol/L (98-107); CREATININE 0.96 mg/dL (0.60-1.30); GLOMERULAR FILTR. RATE CALC > 60 mL/min (>60); GLUCOSE,RANDOM 118 mg/dL (70-110); POTASSIUM 4.1 mmol/L (3.5-5.1); SODIUM SERUM 134 mmol/L (136-145); TOTAL PROTEIN, SERUM 7.2 g/dL (6.4-8.2); UREA NITROGEN, BLOOD 17 mg/dL (7-18)
[2021-07-21 08:45] VITALS: BP 99/63
[2021-07-21] MEDS: BuPROPion HCL XL 150 MG ER TABLET PO SCH (09:44)
[2021-07-21] MEDS: GABAPENTIN 400 MG CAPSULE PO SCH ×3 (09:44→20:18)
[2021-07-21] MEDS ORDERED: ACETAMINOPHEN 325 MG TABLET PO PRN (11:30)
[2021-07-21] MEDS ORDERED: PETROLATUM,WHITE 28 GM JELLY TP PRN (11:30)
[2021-07-21] MEDS ORDERED: ALBUTEROL SULFATE HFA 90 MCG/PUFF 8 GM INHALER IH PRN (11:30)
[2021-07-21] MEDS ORDERED: GuaiFENesin/D-METHORPHAN [SUGAR-FREE] 200-20MG/10 ML SYRUP UDCUP PO PRN (11:30)
[2021-07-21] MEDS ORDERED: DOCUSATE SODIUM 100 MG CAPSULE PO PRN (11:30)
[2021-07-21] MEDS ORDERED: ONDANSETRON HCL 4 MG TABLET PO PRN (11:30)
[2021-07-21] MEDS ORDERED: IBUPROFEN 400 MG TABLET PO PRN (11:30)
[2021-07-21] MEDS ORDERED: NICOTINE 14 MG/24 HOUR PATCH TD PRN (11:30)
[2021-07-21] MEDS ORDERED: LOPERAMIDE HCL 2 MG CAPSULE PO PRN (11:30)
[2021-07-21] MEDS ORDERED: MAG HYDROX/AL HYDROX/SIMETH ES 30 ML SUSPENSION UDCUP PO PRN (11:30)
[2021-07-21] MEDS ORDERED: CloNIDine HCL 0.1 MG TABLET PO PRN (11:30)
[2021-07-21 17:32] VITALS: BP 135/79
[2021-07-21] MEDS: LORazepam 2 MG TABLET PO PRN (17:32)
[2021-07-21 18:32] VITALS: BP 121/78
[2021-07-21] MEDS: MAGNESIUM HYDROXIDE SUSPENSION 30 ML UDCUP PO PRN (20:18)
[2021-07-21] MEDS: QUEtiapine FUMARATE 200 MG TABLET PO SCH (20:18)
[2021-07-22] MEDS: BuPROPion HCL XL 150 MG ER TABLET PO SCH (08:20)
[2021-07-22] MEDS: GABAPENTIN 400 MG CAPSULE PO SCH ×3 (08:20→20:02)
[2021-07-22 10:01] VITALS: BP 98/65
[2021-07-22 16:30] VITALS: BP 122/71
[2021-07-22] MEDS: LORazepam 2 MG TABLET PO PRN (19:44)
[2021-07-22] MEDS: QUEtiapine FUMARATE 200 MG TABLET PO SCH (20:02)
[2021-07-22 21:43] LABS: APPEARANCE,URINE CLEAR (CLEAR); BILIRUBIN,URINE NEGATIVE (NEGATIVE); GLUCOSE, URINE (UA) NEGATIVE (NEGATIVE); KETONES,URINE NEGATIVE (NEGATIVE); LEUKOCYTE ESTERASE ,URINE TRACE (NEGATIVE); NITRATE,URINE NEGATIVE (NEGATIVE); OCCULT BLOOD,URINE NEGATIVE (NEGATIVE); PH,URINE 5.5 (5.0-8.0); PROTEIN,URINE NEGATIVE (NEGATIVE); SPECIFIC GRAVITIY, URINE 1.016 (1.003-1.030); UROBILINOGEN,URINE <=1.0 mg/dL (<=1.0)
[2021-07-22 21:57] LABS: BACTERIA,URINE Rare /HPF (None Seen); RBC,URINE 0-2 /HPF (0-2); SQUAMOUS EPITHELIAL CELL,UR None Seen /LPF (None Seen)
[2021-07-22 22:02] LABS: AMPHET/METH SCREEN,URINE NEGATIVE (NEGATIVE); BARBITURATE SCREEN, URINE NEGATIVE (NEGATIVE); BENZODIAZEPINES SCREEN,URINE NEGATIVE (NEGATIVE); CANNABINOID SCREEN,URINE NEGATIVE (NEGATIVE); COCAINE SCREEN,URINE NEGATIVE (NEGATIVE); METHADONE SCREEN, URINE NEGATIVE (NEGATIVE); OPIATE SCREEN,URINE NEGATIVE (NEGATIVE); PHENCYCLIDINE SCREEN,URINE NEGATIVE (NEGATIVE)
[2021-07-23 09:41] VITALS: BP 98/44
[2021-07-23] MEDS: BuPROPion HCL XL 150 MG ER TABLET PO SCH (09:48)
[2021-07-23] MEDS: GABAPENTIN 400 MG CAPSULE PO SCH ×3 (09:48→20:15)
[2021-07-23 16:03] VITALS: BP 102/74
[2021-07-23] MEDS: QUEtiapine FUMARATE 200 MG TABLET PO SCH (20:15)
[2021-07-24 08:08] VITALS: BP 112/71
[2021-07-24] MEDS: BuPROPion HCL XL 150 MG ER TABLET PO SCH (08:29)
[2021-07-24] MEDS: GABAPENTIN 400 MG CAPSULE PO SCH ×3 (08:29→20:13)
[2021-07-24] MEDS: MAGNESIUM HYDROXIDE SUSPENSION 30 ML UDCUP PO PRN (09:41)
[2021-07-24 16:58] VITALS: BP 124/61
[2021-07-24] MEDS: QUEtiapine FUMARATE 200 MG TABLET PO SCH (20:13)
[2021-07-25 07:06] LABS: COVID AG,FIA SOURCE NASAL SWAB
[2021-07-25] MEDS: GABAPENTIN 400 MG CAPSULE PO SCH ×3 (08:34→20:32)
[2021-07-25] MEDS: BuPROPion HCL XL 150 MG ER TABLET PO SCH (08:34)
[2021-07-25 08:52] VITALS: BP 109/72
[2021-07-25] MEDS: LORazepam 2 MG TABLET PO PRN (13:33)
[2021-07-25 16:13] VITALS: BP 121/79
[2021-07-25] MEDS: QUEtiapine FUMARATE 200 MG TABLET PO SCH (20:32)
[2021-07-26 08:41] VITALS: BP 100/52
[2021-07-26] MEDS: BuPROPion HCL XL 150 MG ER TABLET PO SCH (08:47)
[2021-07-26] MEDS: GABAPENTIN 400 MG CAPSULE PO SCH ×3 (08:47→20:07)
[2021-07-26 16:31] VITALS: BP 150/90
[2021-07-26] MEDS: LORazepam 2 MG TABLET PO PRN (20:07)
[2021-07-26] MEDS: QUEtiapine FUMARATE 200 MG TABLET PO SCH (20:07)
[2021-07-27] MEDS: BuPROPion HCL XL 150 MG ER TABLET PO SCH (08:55)
[2021-07-27] MEDS: GABAPENTIN 400 MG CAPSULE PO SCH ×3 (08:57→20:07)
[2021-07-27 10:28] VITALS: BP 100/60
[2021-07-27] MEDS: LORazepam 2 MG TABLET PO PRN (16:40)
[2021-07-27 16:47] VITALS: BP 113/63
[2021-07-27] MEDS: QUEtiapine FUMARATE 200 MG TABLET PO SCH (20:07)
[2021-07-28] MEDS: GABAPENTIN 400 MG CAPSULE PO SCH ×3 (09:02→20:16)
[2021-07-28] MEDS: BuPROPion HCL XL 150 MG ER TABLET PO SCH (09:03)
[2021-07-28 10:53] VITALS: BP 118/77
[2021-07-28 16:10] VITALS: BP 131/78
[2021-07-28] MEDS: QUEtiapine FUMARATE 200 MG TABLET PO SCH (20:16)
[2021-07-29] MEDS: LORazepam 2 MG TABLET PO PRN (02:34)
[2021-07-29 08:00] VITALS: BP 113/63
[2021-07-29] MEDS: GABAPENTIN 400 MG CAPSULE PO SCH ×3 (08:15→20:11)
[2021-07-29] MEDS: BuPROPion HCL XL 150 MG ER TABLET PO SCH (08:16)
[2021-07-29 16:27] VITALS: BP 128/68
[2021-07-29] MEDS: QUEtiapine FUMARATE 200 MG TABLET PO SCH (20:12)
[2021-07-30] MEDS: GABAPENTIN 400 MG CAPSULE PO SCH ×3 (08:41→20:09)
[2021-07-30] MEDS: BuPROPion HCL XL 150 MG ER TABLET PO SCH (09:30)
[2021-07-30 12:18] VITALS: BP 147/68
[2021-07-30 16:11] VITALS: BP 109/79
[2021-07-30] MEDS: LORazepam 2 MG TABLET PO PRN (16:14)
[2021-07-30] MEDS: QUEtiapine FUMARATE 200 MG TABLET PO SCH (20:09)
[2021-07-31] MEDS: GABAPENTIN 400 MG CAPSULE PO SCH ×3 (08:34→20:13)
[2021-07-31] MEDS: BuPROPion HCL XL 150 MG ER TABLET PO SCH (08:34)
[2021-07-31 09:00] VITALS: BP 92/59
[2021-07-31 10:19] LABS: COVID AG,FIA SOURCE NASOPHARYNGEAL
[2021-07-31 16:08] VITALS: BP 125/84
[2021-07-31 19:32] VITALS: BP 147/96
[2021-07-31] MEDS: LORazepam 2 MG TABLET PO PRN (19:34)
[2021-07-31] MEDS: QUEtiapine FUMARATE 200 MG TABLET PO SCH (20:13)
[2021-08-01 08:00] VITALS: BP 96/52
[2021-08-01] MEDS: BuPROPion HCL XL 150 MG ER TABLET PO SCH (09:20)
[2021-08-01] MEDS: GABAPENTIN 400 MG CAPSULE PO SCH ×3 (09:20→20:28)
[2021-08-01 16:48] VITALS: BP 114/75
[2021-08-01 19:25] VITALS: BP 140/94
[2021-08-01] MEDS: LORazepam 2 MG TABLET PO PRN (19:28)
[2021-08-01] MEDS: QUEtiapine FUMARATE 200 MG TABLET PO SCH (20:28)
[2021-08-02] MEDS: GABAPENTIN 400 MG CAPSULE PO SCH ×3 (09:08→20:18)
[2021-08-02] MEDS: BuPROPion HCL XL 150 MG ER TABLET PO SCH (09:08)
[2021-08-02 16:21] VITALS: BP 100/77
[2021-08-02] MEDS: LORazepam 2 MG TABLET PO PRN (19:13)
[2021-08-02] MEDS: QUEtiapine FUMARATE 200 MG TABLET PO SCH (20:18)
[2021-08-03 08:00] VITALS: BP 98/61
[2021-08-03] MEDS: BuPROPion HCL XL 150 MG ER TABLET PO SCH (08:21)
[2021-08-03] MEDS: GABAPENTIN 400 MG CAPSULE PO SCH (08:21)
[2021-08-03] MEDS ORDERED: BUPR-93 PO (10:00)
[2021-08-03] MEDS ORDERED: QUET200T PO (10:00)
[2021-08-03] MEDS ORDERED: GABA-1201 PO (10:00)
== END 2021-08-03 11:00 | disposition home or self-care (01) | DRG 885 ==
LOC: 3EX 20:04
PROVIDERS: ADMIT Psychiatry & Neurology Psychiatry; ATTEND Psychiatry & Neurology Psychiatry
DX: F31.4 Bipolar disorder, current episode depressed, severe, without psychotic features (principal); R45.851 Suicidal ideations; F10.99 Alcohol use, unspecified with unspecified alcohol-induced disorder; I10 Essential (primary) hypertension; J44.9 Chronic obstructive pulmonary disease, unspecified; E78.5 Hyperlipidemia, unspecified; E11.9 Type 2 diabetes mellitus without complications; F15.10 Other stimulant abuse, uncomplicated; F22 Delusional disorders; Z20.822 Contact with and (suspected) exposure to COVID-19; Y90.9 Presence of alcohol in blood, level not specified; Z79.899 Other long term (current) drug therapy; Z79.84 Long term (current) use of oral hypoglycemic drugs; Z71.51 Drug abuse counseling and surveillance of drug abuser; Z59.00 Homelessness unspecified; Z91.51 Personal history of suicidal behavior
CPT/HCPCS: 80053; 80307; 81001; 85025; 87081; G0378

== ENCOUNTER 2021-09-24 18:29 | Inpatient (IN) | payer MEDICARE, MEDICAID ==
[~2021-09-24] VITALS: Ht 188 cm; Wt 100.3 kg
[~2021-09-24 18:29] MED LIST changes: -[UNRECOGNIZED DRUG - CODE] PO
[2021-09-24] MEDS ORDERED: CLON0.1T PO (20:21)
[2021-09-24] MEDS ORDERED: HALOPERIDOL 5 MG TABLET PO PRN (20:30)
[2021-09-24] MEDS ORDERED: ZOLPIDEM TARTRATE 10 MG TABLET PO PRN (20:30)
[2021-09-24 20:38] LABS: COVID AG,FIA SOURCE NASOPHARYNGEAL
[2021-09-24 20:40] LABS: BASOPHILS % (AUTO) 1.5 % (0.0-2.0); EOSINOPHILS % (AUTO) 3.7 % (1.0-6.0); HEMATOCRIT 44.6 % (41-53); HEMOGLOBIN 15.2 g/dL (13.5-17.5); LYMPHOCYTES # (AUTO) 1.3 K/uL (1.0-4.8); LYMPHOCYTES % (AUTO) 29.2 % (22.0-44.0); MEAN CORPUSCULAR VOLUME 91 fL (80-100); MONOCYTES # (AUTO) 0.4 K/uL (0.1-1.0); MONOCYTES % (AUTO) 8.4 % (2.0-9.0); NEUTROPHILS # (AUTO) 2.5 K/uL (1.8-7.7); NEUTROPHILS % (AUTO) 57.2 % (40.0-70.0); PLATELET COUNT (AUTO) 263 K/uL (150-450); RED BLOOD CELL COUNT(AUTO) 4.89 MIL/uL (4.50-5.90); RED CELL DISTRIBUTION WIDTH 15.7 % (11.5-14.5)
[2021-09-24 20:46] LABS: ANION GAP 9 mmol/L (8-16); CALCIUM, TOTAL 8.3 mg/dL (8.8-10.5); CARBON DIOXIDE 30 mmol/L (22-29); CHLORIDE 101 mmol/L (98-107); CREATININE 1.21 mg/dL (0.60-1.30); GLOMERULAR FILTR. RATE CALC > 60 mL/min (>60); GLUCOSE,RANDOM 89 mg/dL (70-110); POTASSIUM 4.7 mmol/L (3.5-5.1); SODIUM SERUM 140 mmol/L (136-145); UREA NITROGEN, BLOOD 12 mg/dL (7-18)
[2021-09-24 20:52] LABS: ALANINE AMINOTRANSFERASE 108 U/L (12-78); ALBUMIN 3.4 g/dL (3.4-5.0); ALKALINE PHOSPHATASE 122 U/L (46-116); ASPARTATE AMINOTRANSFERASE 92 U/L (15-37); BILIRUBIN,TOTAL 0.4 mg/dL (0.1-1.0); TOTAL PROTEIN, SERUM 7.7 g/dL (6.4-8.2)
[2021-09-25] MEDS ORDERED: -PHARMACY VACCINE NOTE- MISC ONE (04:15)
[2021-09-25 06:30] VITALS: BP 152/89
[2021-09-25 08:04] VITALS: BP 116/74
[2021-09-25] MEDS: GABAPENTIN 300 MG CAPSULE PO SCH ×2 (12:27→17:12)
[2021-09-25] MEDS: BuPROPion HCL 150 MG SR TABLET PO SCH (12:27)
[2021-09-25] MEDS ORDERED: GABAPENTIN 400 MG CAPSULE PO SCH (13:00)
[2021-09-25 16:07] VITALS: BP 132/72
[2021-09-25] MEDS: QUEtiapine FUMARATE 200 MG TABLET PO SCH (20:15)
[2021-09-25] MEDS ORDERED: PETROLATUM,WHITE 28 GM JELLY TP PRN (20:15)
[2021-09-25] MEDS ORDERED: MAGNESIUM HYDROXIDE SUSPENSION 30 ML UDCUP PO PRN (20:15)
[2021-09-25] MEDS ORDERED: CloNIDine HCL 0.1 MG TABLET PO PRN (20:15)
[2021-09-25] MEDS ORDERED: LOPERAMIDE HCL 2 MG CAPSULE PO PRN (20:15)
[2021-09-25] MEDS ORDERED: ALBUTEROL SULFATE HFA 90 MCG/PUFF 8 GM INHALER IH PRN (20:15)
[2021-09-25] MEDS ORDERED: DOCUSATE SODIUM 100 MG CAPSULE PO PRN (20:15)
[2021-09-25] MEDS ORDERED: ACETAMINOPHEN 325 MG TABLET PO PRN (20:15)
[2021-09-25] MEDS ORDERED: NICOTINE 14 MG/24 HOUR PATCH TD PRN (20:15)
[2021-09-25] MEDS ORDERED: ONDANSETRON HCL 4 MG TABLET PO PRN (20:15)
[2021-09-25] MEDS ORDERED: GuaiFENesin/D-METHORPHAN [SUGAR-FREE] 200-20MG/10 ML SYRUP UDCUP PO PRN (20:15)
[2021-09-25] MEDS ORDERED: IBUPROFEN 400 MG TABLET PO PRN (20:15)
[2021-09-25] MEDS ORDERED: MAG HYDROX/AL HYDROX/SIMETH ES 30 ML SUSPENSION UDCUP PO PRN (20:15)
[2021-09-26 04:52] VITALS: BP 116/74
[2021-09-26] MEDS: GABAPENTIN 300 MG CAPSULE PO SCH ×3 (08:04→17:15)
[2021-09-26] MEDS: BuPROPion HCL 150 MG SR TABLET PO SCH (08:04)
[2021-09-26 08:07] VITALS: BP 111/64
[2021-09-26 16:01] VITALS: BP 128/77
[2021-09-26] MEDS: LORazepam 2 MG TABLET PO PRN (17:15)
[2021-09-26] MEDS: QUEtiapine FUMARATE 200 MG TABLET PO SCH (20:15)
[2021-09-27 03:59] VITALS: BP 84/59
[2021-09-27] MEDS: GABAPENTIN 300 MG CAPSULE PO SCH ×3 (08:05→17:02)
[2021-09-27] MEDS: BuPROPion HCL XL 150 MG ER TABLET PO SCH (08:05)
[2021-09-27 08:17] VITALS: BP 101/60
[2021-09-27 15:57] VITALS: BP 103/66
[2021-09-27 20:01] VITALS: BP 103/66
[2021-09-27] MEDS: QUEtiapine FUMARATE 200 MG TABLET PO SCH (20:16)
[2021-09-28 05:34] VITALS: BP 109/59
[2021-09-28] MEDS: BuPROPion HCL XL 150 MG ER TABLET PO SCH (08:03)
[2021-09-28] MEDS: GABAPENTIN 300 MG CAPSULE PO SCH ×3 (08:03→16:22)
[2021-09-28 08:05] VITALS: BP 110/64
[2021-09-28 16:01] VITALS: BP 133/83
[2021-09-28] MEDS: LORazepam 2 MG TABLET PO PRN (18:27)
[2021-09-28] MEDS: QUEtiapine FUMARATE 200 MG TABLET PO SCH (20:26)
[2021-09-29 04:58] VITALS: BP 88/60
[2021-09-29] MEDS: LORazepam 2 MG TABLET PO PRN ×2 (08:03→16:28)
[2021-09-29] MEDS: GABAPENTIN 300 MG CAPSULE PO SCH ×3 (08:03→16:28)
[2021-09-29] MEDS: BuPROPion HCL XL 150 MG ER TABLET PO SCH (08:03)
[2021-09-29 08:04] VITALS: BP 99/56
[2021-09-29 16:01] VITALS: BP 105/60
[2021-09-29] MEDS: QUEtiapine FUMARATE 200 MG TABLET PO SCH (20:08)
[2021-09-30 04:51] VITALS: BP 74/44
[2021-09-30] MEDS: BuPROPion HCL XL 150 MG ER TABLET PO SCH (08:14)
[2021-09-30] MEDS: GABAPENTIN 300 MG CAPSULE PO SCH ×3 (08:14→16:03)
[2021-09-30] MEDS: LORazepam 2 MG TABLET PO PRN ×2 (08:14→16:03)
[2021-09-30 08:29] VITALS: BP 105/60
[2021-09-30 16:30] VITALS: BP 120/73
[2021-09-30] MEDS: QUEtiapine FUMARATE 200 MG TABLET PO SCH (20:09)
[2021-10-01 04:47] VITALS: BP 91/55
[2021-10-01 08:20] VITALS: BP 100/62
[2021-10-01] MEDS: BuPROPion HCL XL 150 MG ER TABLET PO SCH (08:38)
[2021-10-01] MEDS: GABAPENTIN 300 MG CAPSULE PO SCH ×3 (08:38→16:52)
[2021-10-01] MEDS: LORazepam 2 MG TABLET PO PRN ×2 (11:43→18:23)
[2021-10-01 16:02] VITALS: BP 112/73
[2021-10-01] MEDS: QUEtiapine FUMARATE 200 MG TABLET PO SCH (19:52)
[2021-10-02 03:59] VITALS: BP 100/62
[2021-10-02 07:23] LABS: CHOL/HDL RATIO 3.7 (4.2-7.3)
[2021-10-02 08:02] VITALS: BP 110/66
[2021-10-02] MEDS: BuPROPion HCL XL 150 MG ER TABLET PO SCH (08:20)
[2021-10-02] MEDS: FOLIC ACID 1 MG TABLET PO SCH (08:20)
[2021-10-02] MEDS: GABAPENTIN 300 MG CAPSULE PO SCH ×3 (08:20→16:42)
[2021-10-02] MEDS: MULTIVITAMINS WITH MINERALS, THERAPEUTIC TABLET PO SCH (08:20)
[2021-10-02] MEDS: THIAMINE 100 MG TABLET PO SCH (08:22)
[2021-10-02] MEDS: LORazepam 2 MG TABLET PO PRN ×2 (08:30→19:49)
[2021-10-02] MEDS ORDERED: THIAMINE 100 MG/ML 2 ML VIAL IM SCH (09:00)
[2021-10-02 16:07] VITALS: BP 117/70
[2021-10-02] MEDS: QUEtiapine FUMARATE 200 MG TABLET PO SCH (21:01)
[2021-10-03 04:19] VITALS: BP 112/66
[2021-10-03] MEDS: GABAPENTIN 300 MG CAPSULE PO SCH ×2 (08:06→13:31)
[2021-10-03] MEDS: MULTIVITAMINS WITH MINERALS, THERAPEUTIC TABLET PO SCH (08:06)
[2021-10-03] MEDS: FOLIC ACID 1 MG TABLET PO SCH (08:06)
[2021-10-03] MEDS: THIAMINE 100 MG TABLET PO SCH (08:06)
[2021-10-03] MEDS: BuPROPion HCL XL 150 MG ER TABLET PO SCH (08:06)
[2021-10-03 08:14] VITALS: BP 105/68
[2021-10-03 08:17] VITALS: BP 106/55
[2021-10-03] MEDS ORDERED: QUET200T PO ×2 (10:07→11:01)
[2021-10-03] MEDS ORDERED: GABA-1181 PO ×2 (10:09→11:01)
[2021-10-03] MEDS ORDERED: BUPR-50 PO ×2 (10:09→11:01)
== END 2021-10-03 14:44 | disposition home or self-care (01) | DRG 885 ==
LOC: EMS 18:29 → B3A 09-25 01:26
PROVIDERS: ADMIT Psychiatry & Neurology Psychiatry; ATTEND Psychiatry & Neurology Psychiatry
DX: F31.5 Bipolar disorder, current episode depressed, severe, with psychotic features (principal); R45.851 Suicidal ideations; E78.5 Hyperlipidemia, unspecified; F41.9 Anxiety disorder, unspecified; I10 Essential (primary) hypertension; J44.9 Chronic obstructive pulmonary disease, unspecified; D72.819 Decreased white blood cell count, unspecified; F10.10 Alcohol abuse, uncomplicated; Y90.5 Blood alcohol level of 100-119 mg/100 ml; Z20.822 Contact with and (suspected) exposure to COVID-19; Z59.00 Homelessness unspecified; Z79.899 Other long term (current) drug therapy; Z91.19 Patient's noncompliance with other medical treatment and regimen; Z71.41 Alcohol abuse counseling and surveillance of alcoholic
CPT/HCPCS: 80053; 80061; 85025; 99285; G0480

== ENCOUNTER 2022-01-13 17:46 | Emergency (ER) | payer MEDICARE, MEDICAID ==
[~2022-01-13] VITALS: Ht 182.9 cm; Wt 104.5 kg
[~2022-01-13 17:46] MED LIST changes: -ALBU8HFA IH; +BUPR-50 PO; -BUPR-93 PO; -CLON0.1T PO; +GABA-1181 PO; -GABA-1201 PO
[2022-01-13 18:57] LABS: BASOPHILS % (AUTO) 0.1 % (0.0-2.0); EOSINOPHILS % (AUTO) 0.9 % (1.0-6.0); HEMATOCRIT 37.6 % (41-53); HEMOGLOBIN 12.6 g/dL (13.5-17.5); LYMPHOCYTES # (AUTO) 0.6 K/uL (1.0-4.8); LYMPHOCYTES % (AUTO) 5.5 % (22.0-44.0); MEAN CORPUSCULAR HEMOGLOBIN 30.7 pg (26.0-34.0); MEAN CORPUSCULAR HGB CONC 33.4 G/dL (31.0-37.0); MEAN CORPUSCULAR VOLUME 92 fL (80-100); NEUTROPHILS # (AUTO) 9.8 K/uL (1.8-7.7); NEUTROPHILS % (AUTO) 84.5 % (40.0-70.0); PLATELET COUNT (AUTO) 351 K/uL (150-450); RED BLOOD CELL COUNT(AUTO) 4.09 MIL/uL (4.50-5.90); RED CELL DISTRIBUTION WIDTH 14.3 % (11.5-14.5)
[2022-01-13] MEDS ORDERED: LIDOCAINE 1% 10 ML VIAL SQ ONE (19:00)
[2022-01-13] MEDS ORDERED: CLINDAMYCIN 600 MG/D5% WATER 50 ML IV ONE (19:00)
[2022-01-13 19:24] LABS: ANION GAP 5 mmol/L (8-16); CALCIUM, TOTAL 9.3 mg/dL (8.8-10.5); CARBON DIOXIDE 28 mmol/L (22-29); CHLORIDE 102 mmol/L (98-107); CREATININE 1.27 mg/dL (0.60-1.30); GLUCOSE,RANDOM 129 mg/dL (70-110); POTASSIUM 4.2 mmol/L (3.5-5.1); SODIUM SERUM 135 mmol/L (136-145); UREA NITROGEN, BLOOD 17 mg/dL (7-18)
[2022-01-13 19:25] LABS: GLOMERULAR FILTR. RATE CALC 59 mL/min (>60)
[2022-01-13] MEDS ORDERED: POVIDONE-IODINE 10% 15 ML SOLUTION UD TP ONE (19:30)
[2022-01-13 19:31] LABS: ALANINE AMINOTRANSFERASE 24 U/L (12-78); ALKALINE PHOSPHATASE 99 U/L (46-116); ASPARTATE AMINOTRANSFERASE 23 U/L (15-37); BILIRUBIN,TOTAL 0.3 mg/dL (0.1-1.0); TOTAL PROTEIN, SERUM 7.5 g/dL (6.4-8.2)
[2022-01-14 00:07] LABS: COVID AG,FIA SOURCE NASAL SWAB
[2022-01-14] MEDS ORDERED: CLIN300C58 PO (03:42)
[2022-01-14 03:43] VITALS: BP 135/72
== END 2022-01-14 03:55 | disposition home or self-care (01) ==
LOC: EMS 17:48
DX: F20.9 Schizophrenia, unspecified (principal); L02.211 Cutaneous abscess of abdominal wall; F31.9 Bipolar disorder, unspecified; M25.561 Pain in right knee; I10 Essential (primary) hypertension; F12.90 Cannabis use, unspecified, uncomplicated; F15.90 Other stimulant use, unspecified, uncomplicated; F14.90 Cocaine use, unspecified, uncomplicated; Z20.822 Contact with and (suspected) exposure to COVID-19
CPT/HCPCS: 99284; 96365; 10060; 87426; 80053; 85025; 87040; 36415; 73562; G0480; J3490 ×2; 96372

== ENCOUNTER 2022-02-22 17:16 | Inpatient (IN) | payer MEDICARE, MEDICAID ==
[~2022-02-22] VITALS: Ht 188 cm; Wt 101.2 kg
[~2022-02-22 17:16] MED LIST changes: +CLIN300C58 PO
[2022-02-22 19:41] LABS: GLUCOMETER DEV NAME(LOC) POC.BV
[2022-02-22] MEDS ORDERED: ESZOPICLONE 2 MG TABLET PO PRN (20:45)
[2022-02-22] MEDS ORDERED: ChlordiazePOXIDE HCL 25 MG CAPSULE PO ONE (20:45)
[2022-02-22 21:36] VITALS: BP 129/81
[2022-02-22 22:18] VITALS: BP 132/89
[2022-02-22] MEDS: GABAPENTIN 400 MG CAPSULE PO SCH (22:27)
[2022-02-22 22:51] VITALS: BP 132/89
[2022-02-22] MEDS ORDERED: -PHARMACY VACCINE NOTE- MISC ONE (23:00)
[2022-02-22 23:18] VITALS: BP 132/71
[2022-02-22 23:45] VITALS: BP 110/70
[2022-02-23] VITALS (8 sets, daily range): BP systolic 106–144; BP diastolic 62–86
[2022-02-23 08:02] LABS: BASOPHILS % (AUTO) 0.8 % (0.0-2.0); EOSINOPHILS % (AUTO) 5.3 % (1.0-6.0); HEMATOCRIT 42.8 % (41-53); HEMOGLOBIN 14.2 g/dL (13.5-17.5); LYMPHOCYTES # (AUTO) 1.2 K/uL (1.0-4.8); LYMPHOCYTES % (AUTO) 21.7 % (22.0-44.0); MEAN CORPUSCULAR HEMOGLOBIN 31.1 pg (26.0-34.0); MEAN CORPUSCULAR HGB CONC 33.2 G/dL (31.0-37.0); MEAN CORPUSCULAR VOLUME 94 fL (80-100); MONOCYTES # (AUTO) 0.5 K/uL (0.1-1.0); MONOCYTES % (AUTO) 8.9 % (2.0-9.0); NEUTROPHILS # (AUTO) 3.6 K/uL (1.8-7.7); NEUTROPHILS % (AUTO) 63.3 % (40.0-70.0); PLATELET COUNT (AUTO) 324 K/uL (150-450); RED BLOOD CELL COUNT(AUTO) 4.57 MIL/uL (4.50-5.90); RED CELL DISTRIBUTION WIDTH 14.3 % (11.5-14.5)
[2022-02-23 08:26] LABS: ALANINE AMINOTRANSFERASE 31 U/L (12-78); ALKALINE PHOSPHATASE 94 U/L (46-116); ANION GAP 4 mmol/L (8-16); ASPARTATE AMINOTRANSFERASE 21 U/L (15-37); BILIRUBIN,TOTAL 0.6 mg/dL (0.1-1.0); CALCIUM, TOTAL 8.5 mg/dL (8.8-10.5); CARBON DIOXIDE 30 mmol/L (22-29); CHLORIDE 102 mmol/L (98-107); CHOL/HDL RATIO 3.2 (4.2-7.3); CHOLESTEROL 217 mg/dL (131-200); CREATININE 0.93 mg/dL (0.60-1.30); FREE T4 (FREE THYROXINE) 1.04 ng/dL (0.76-1.46); GLOMERULAR FILTR. RATE CALC > 60 mL/min (>60); GLUCOSE,RANDOM 103 mg/dL (70-110); HDL CHOLESTEROL 68 mg/dL (40-60); LDL CHOL (CALC.) 128 mg/dL (0-130); POTASSIUM 3.9 mmol/L (3.5-5.1); SODIUM SERUM 136 mmol/L (136-145); THYROID STIMULATING HORMONE 2.95 uIU/mL (0.36-3.74); TOTAL PROTEIN, SERUM 6.9 g/dL (6.4-8.2); TRIGLYCERIDES 105 mg/dL (15-150); UREA NITROGEN, BLOOD 14 mg/dL (7-18)
[2022-02-23] MEDS: GABAPENTIN 400 MG CAPSULE PO SCH ×4 (10:24→20:07)
[2022-02-23] MEDS: HydrOXYzine PAMOATE 50 MG CAPSULE PO PRN (18:56)
[2022-02-23] MEDS: ChlordiazePOXIDE HCL 25 MG CAPSULE PO SCH (20:07)
[2022-02-24] MEDS ORDERED: ONDANSETRON HCL 4 MG TABLET PO PRN (06:30)
[2022-02-24] MEDS ORDERED: OMEPRAZOLE 20 MG CAPSULE PO PRN (06:30)
[2022-02-24] MEDS ORDERED: PETROLATUM,WHITE 28 GM JELLY TP PRN (06:30)
[2022-02-24] MEDS ORDERED: ACETAMINOPHEN 325 MG TABLET PO PRN (06:30)
[2022-02-24] MEDS ORDERED: BENZOCAINE/MENTHOL LOZENGE PO PRN (06:30)
[2022-02-24] MEDS ORDERED: DOCUSATE SODIUM 100 MG CAPSULE PO PRN (06:30)
[2022-02-24] MEDS ORDERED: MAGNESIUM HYDROXIDE SUSPENSION 30 ML UDCUP PO PRN (06:30)
[2022-02-24] MEDS ORDERED: LOPERAMIDE HCL 2 MG CAPSULE PO PRN (06:30)
[2022-02-24] MEDS ORDERED: IBUPROFEN 600 MG TABLET PO PRN (06:30)
[2022-02-24] MEDS ORDERED: ALBUTEROL SULFATE HFA 90 MCG/PUFF 8 GM INHALER IH PRN (06:30)
[2022-02-24] MEDS ORDERED: CloNIDine HCL 0.1 MG TABLET PO PRN (06:30)
[2022-02-24] MEDS ORDERED: MAG HYDROX/AL HYDROX/SIMETH ES 30 ML SUSPENSION UDCUP PO PRN (06:30)
[2022-02-24] MEDS ORDERED: BACITRACIN 28 GM OINTMENT TP PRN (06:30)
[2022-02-24 08:23] VITALS: BP 114/66
[2022-02-24] MEDS: OMEGA-3/DHA/EPA/FISH OIL 1,000 MG CAPSULE PO SCH (10:15)
[2022-02-24] MEDS: ChlordiazePOXIDE HCL 25 MG CAPSULE PO SCH ×3 (10:15→17:27)
[2022-02-24] MEDS: GABAPENTIN 400 MG CAPSULE PO SCH ×4 (10:15→20:46)
[2022-02-24 21:30] VITALS: BP 108/67
[2022-02-25 08:21] VITALS: BP 98/59
[2022-02-25] MEDS ORDERED: CYANOCOBALAMIN 1,000 MCG/ML VIAL IM ONE (09:45)
[2022-02-25] MEDS ORDERED: PROMETHAZINE HCL 25 MG TABLET PO PRN (09:45)
[2022-02-25] MEDS ORDERED: MAG HYDROX/AL HYDROX/SIMETH ES 30 ML SUSPENSION UDCUP PO PRN (09:45)
[2022-02-25] MEDS ORDERED: GuaiFENesin/D-METHORPHAN [SUGAR-FREE] 200-20MG/10 ML SYRUP UDCUP PO PRN (09:45)
[2022-02-25] MEDS ORDERED: LOPERAMIDE HCL 2 MG CAPSULE PO PRN (09:45)
[2022-02-25] MEDS ORDERED: TUBERCULIN, PURIFIED PROTEIN DERIVATIVE 5 TU/0.1 ML SYRINGE ID ONE (09:45)
[2022-02-25] MEDS ORDERED: MAGNESIUM HYDROXIDE SUSPENSION 30 ML UDCUP PO PRN (09:45)
[2022-02-25] MEDS ORDERED: QUEtiapine FUMARATE 100 MG TABLET PO PRN (09:45)
[2022-02-25] MEDS: ChlordiazePOXIDE HCL 25 MG CAPSULE PO SCH ×3 (10:51→17:13)
[2022-02-25] MEDS: OMEGA-3/DHA/EPA/FISH OIL 1,000 MG CAPSULE PO SCH (10:51)
[2022-02-25] MEDS: GABAPENTIN 400 MG CAPSULE PO SCH ×3 (13:27→21:13)
[2022-02-25] MEDS: THIAMINE 100 MG TABLET PO SCH (17:13)
[2022-02-25 20:35] VITALS: BP 109/57
[2022-02-25] MEDS: QUEtiapine FUMARATE 100 MG TABLET PO SCH (21:13)
[2022-02-25] MEDS: DIVALPROEX SODIUM 500 MG ER TABLET PO SCH (21:14)
[2022-02-26 08:52] VITALS: BP 109/68
[2022-02-26] MEDS: FOLIC ACID 1 MG TABLET PO SCH (09:28)
[2022-02-26] MEDS: THIAMINE 100 MG TABLET PO SCH ×2 (09:29→17:01)
[2022-02-26] MEDS: OMEGA-3/DHA/EPA/FISH OIL 1,000 MG CAPSULE PO SCH (09:29)
[2022-02-26] MEDS: MULTIVITAMINS WITH MINERALS, THERAPEUTIC TABLET PO SCH (09:29)
[2022-02-26] MEDS: GABAPENTIN 400 MG CAPSULE PO SCH ×4 (09:29→20:37)
[2022-02-26] MEDS: ChlordiazePOXIDE HCL 25 MG CAPSULE PO SCH ×3 (09:29→17:02)
[2022-02-26 10:00] VITALS: BP 109/68
[2022-02-26 20:34] VITALS: BP 116/65
[2022-02-26] MEDS: QUEtiapine FUMARATE 100 MG TABLET PO SCH (20:36)
[2022-02-26] MEDS: DIVALPROEX SODIUM 500 MG ER TABLET PO SCH (20:37)
[2022-02-27 08:33] VITALS: BP 118/66
[2022-02-27] MEDS: OMEGA-3/DHA/EPA/FISH OIL 1,000 MG CAPSULE PO SCH (08:50)
[2022-02-27] MEDS: ChlordiazePOXIDE HCL 25 MG CAPSULE PO SCH ×2 (08:50→16:47)
[2022-02-27] MEDS: FOLIC ACID 1 MG TABLET PO SCH (08:50)
[2022-02-27] MEDS: THIAMINE 100 MG TABLET PO SCH ×2 (08:50→16:46)
[2022-02-27] MEDS: MULTIVITAMINS WITH MINERALS, THERAPEUTIC TABLET PO SCH (08:51)
[2022-02-27] MEDS: GABAPENTIN 400 MG CAPSULE PO SCH ×4 (08:51→20:22)
[2022-02-27 10:06] VITALS: BP 118/66
[2022-02-27 15:16] LABS: GLUCOMETER DEV NAME(LOC) POC.BV
[2022-02-27 20:07] VITALS: BP 123/62
[2022-02-27] MEDS: QUEtiapine FUMARATE 200 MG TABLET PO SCH (20:22)
[2022-02-27] MEDS: DIVALPROEX SODIUM 500 MG ER TABLET PO SCH (20:26)
[2022-02-27] MEDS: HydrOXYzine PAMOATE 50 MG CAPSULE PO PRN (20:56)
[2022-02-28 08:21] VITALS: BP 119/69
[2022-02-28] MEDS: FOLIC ACID 1 MG TABLET PO SCH (08:58)
[2022-02-28] MEDS: GABAPENTIN 400 MG CAPSULE PO SCH ×2 (08:58→13:05)
[2022-02-28] MEDS: MULTIVITAMINS WITH MINERALS, THERAPEUTIC TABLET PO SCH (08:58)
[2022-02-28] MEDS: OMEGA-3/DHA/EPA/FISH OIL 1,000 MG CAPSULE PO SCH (08:59)
[2022-02-28] MEDS: THIAMINE 100 MG TABLET PO SCH ×2 (08:59→18:24)
[2022-02-28] MEDS: ChlordiazePOXIDE HCL 25 MG CAPSULE PO SCH (08:59)
[2022-02-28] MEDS ORDERED: GABAPENTIN 300 MG CAPSULE PO PRN (14:45)
[2022-02-28] MEDS: GABAPENTIN 300 MG CAPSULE PO SCH ×2 (18:24→21:06)
[2022-02-28] MEDS: QUEtiapine FUMARATE 200 MG TABLET PO SCH (20:54)
[2022-02-28] MEDS: DIVALPROEX SODIUM 500 MG ER TABLET PO SCH (20:56)
[2022-02-28 21:27] VITALS: BP 112/85
[2022-03-01] MEDS: OMEGA-3/DHA/EPA/FISH OIL 1,000 MG CAPSULE PO SCH (08:48)
[2022-03-01] MEDS: MULTIVITAMINS WITH MINERALS, THERAPEUTIC TABLET PO SCH (08:48)
[2022-03-01] MEDS: FOLIC ACID 1 MG TABLET PO SCH (08:49)
[2022-03-01] MEDS: GABAPENTIN 300 MG CAPSULE PO SCH ×4 (08:49→20:11)
[2022-03-01] MEDS: THIAMINE 100 MG TABLET PO SCH ×2 (08:49→17:08)
[2022-03-01 09:22] VITALS: BP 127/70
[2022-03-01 12:35] VITALS: BP 119/73
[2022-03-01 20:00] VITALS: BP 118/60
[2022-03-01] MEDS: QUEtiapine FUMARATE 200 MG TABLET PO SCH (20:11)
[2022-03-01] MEDS: DIVALPROEX SODIUM 500 MG ER TABLET PO SCH (20:13)
[2022-03-01] MEDS ORDERED: QUEtiapine FUMARATE 300 MG TABLET PO SCH (21:00)
[2022-03-02 08:25] VITALS: BP 111/66
[2022-03-02] MEDS: OMEGA-3/DHA/EPA/FISH OIL 1,000 MG CAPSULE PO SCH (08:53)
[2022-03-02] MEDS: GABAPENTIN 300 MG CAPSULE PO SCH ×4 (08:54→20:04)
[2022-03-02] MEDS: THIAMINE 100 MG TABLET PO SCH ×2 (08:54→17:00)
[2022-03-02] MEDS: MULTIVITAMINS WITH MINERALS, THERAPEUTIC TABLET PO SCH (08:54)
[2022-03-02] MEDS: FOLIC ACID 1 MG TABLET PO SCH (08:54)
[2022-03-02] MEDS: QUEtiapine FUMARATE 200 MG TABLET PO SCH (20:04)
[2022-03-02 20:26] VITALS: BP 117/60
[2022-03-03 08:30] VITALS: BP 126/64
[2022-03-03] MEDS: OMEGA-3/DHA/EPA/FISH OIL 1,000 MG CAPSULE PO SCH (08:52)
[2022-03-03] MEDS: FOLIC ACID 1 MG TABLET PO SCH (08:53)
[2022-03-03] MEDS: THIAMINE 100 MG TABLET PO SCH ×2 (08:53→16:49)
[2022-03-03] MEDS: MULTIVITAMINS WITH MINERALS, THERAPEUTIC TABLET PO SCH (08:53)
[2022-03-03] MEDS: GABAPENTIN 300 MG CAPSULE PO SCH ×4 (08:53→20:31)
[2022-03-03 20:10] VITALS: BP 111/69
[2022-03-03] MEDS: QUEtiapine FUMARATE 200 MG TABLET PO SCH (20:31)
[2022-03-04] MEDS: OMEGA-3/DHA/EPA/FISH OIL 1,000 MG CAPSULE PO SCH (08:19)
[2022-03-04] MEDS: FOLIC ACID 1 MG TABLET PO SCH (08:19)
[2022-03-04] MEDS: THIAMINE 100 MG TABLET PO SCH ×2 (08:19→16:05)
[2022-03-04] MEDS: MULTIVITAMINS WITH MINERALS, THERAPEUTIC TABLET PO SCH (08:19)
[2022-03-04] MEDS: GABAPENTIN 300 MG CAPSULE PO SCH ×4 (08:20→20:00)
[2022-03-04 08:48] VITALS: BP 112/69
[2022-03-04] MEDS: QUEtiapine FUMARATE 200 MG TABLET PO SCH (20:00)
[2022-03-04 21:15] VITALS: BP 112/70
[2022-03-05 08:30] VITALS: BP 119/71
[2022-03-05] MEDS: MULTIVITAMINS WITH MINERALS, THERAPEUTIC TABLET PO SCH (08:40)
[2022-03-05] MEDS: OMEGA-3/DHA/EPA/FISH OIL 1,000 MG CAPSULE PO SCH (08:40)
[2022-03-05] MEDS: THIAMINE 100 MG TABLET PO SCH ×2 (08:40→16:20)
[2022-03-05] MEDS: FOLIC ACID 1 MG TABLET PO SCH (08:40)
[2022-03-05] MEDS: GABAPENTIN 300 MG CAPSULE PO SCH ×4 (08:41→20:08)
[2022-03-05] MEDS: HydrOXYzine PAMOATE 50 MG CAPSULE PO PRN (17:04)
[2022-03-05] MEDS: QUEtiapine FUMARATE 200 MG TABLET PO SCH (20:08)
[2022-03-05 22:36] VITALS: BP 123/60
[2022-03-06 08:25] VITALS: BP 120/69
[2022-03-06] MEDS: GABAPENTIN 300 MG CAPSULE PO SCH ×3 (08:56→16:06)
[2022-03-06] MEDS: THIAMINE 100 MG TABLET PO SCH ×2 (08:56→16:05)
[2022-03-06] MEDS: OMEGA-3/DHA/EPA/FISH OIL 1,000 MG CAPSULE PO SCH (08:56)
[2022-03-06] MEDS: FOLIC ACID 1 MG TABLET PO SCH (08:56)
[2022-03-06] MEDS: MULTIVITAMINS WITH MINERALS, THERAPEUTIC TABLET PO SCH (08:56)
[2022-03-06 09:56] LABS: GLUCOMETER DEV NAME(LOC) POC.BV
[2022-03-06] MEDS ORDERED: QUET200T30 PO (15:08)
[2022-03-06] MEDS ORDERED: OMEG-135 PO ×2 (15:08→17:36)
[2022-03-06] MEDS ORDERED: NALT50TA PO (15:08)
[2022-03-06] MEDS ORDERED: GABA-1181 PO ×2 (15:08→17:35)
[2022-03-06 15:50] VITALS: BP 155/97
[2022-03-06] MEDS ORDERED: NALT50TA6 PO (17:35)
[2022-03-06] MEDS ORDERED: QUET200T PO (17:36)
== END 2022-03-06 18:38 | disposition home or self-care (01) | DRG 885 ==
LOC: B2S 21:00
PROVIDERS: ADMIT Psychiatry & Neurology Psychiatry; ATTEND Psychiatry & Neurology Psychiatry
DX: F25.9 Schizoaffective disorder, unspecified (principal); R45.851 Suicidal ideations; E55.9 Vitamin D deficiency, unspecified; E78.1 Pure hyperglyceridemia; E78.5 Hyperlipidemia, unspecified; Z20.822 Contact with and (suspected) exposure to COVID-19; F10.20 Alcohol dependence, uncomplicated; F17.210 Nicotine dependence, cigarettes, uncomplicated; G47.00 Insomnia, unspecified; I10 Essential (primary) hypertension; F41.9 Anxiety disorder, unspecified; J44.9 Chronic obstructive pulmonary disease, unspecified; K21.9 Gastro-esophageal reflux disease without esophagitis; Z79.899 Other long term (current) drug therapy; Z71.6 Tobacco abuse counseling; Z91.14 Patient's other noncompliance with medication regimen; Z91.199 Patient's noncompliance with other medical treatment and regimen due to unspecified reason
CPT/HCPCS: 80053; 80061; 80164; 84439; 84443; 85025; 86592; 93971; G0480; J3420

== ENCOUNTER 2022-04-19 16:22 | Inpatient (IN) | payer MEDICARE, MEDICAID ==
[~2022-04-19] VITALS: Ht 185.4 cm; Wt 100.0 kg
[~2022-04-19 16:22] MED LIST changes: -BUPR-50 PO; -CLIN300C58 PO; +NALT50TA PO; +NALT50TA6 PO; +OMEG-135 PO; +QUET200T30 PO
[2022-04-19 17:31] LABS: GLUCOMETER DEV NAME(LOC) POC.BV
[2022-04-19] MEDS ORDERED: HALOPERIDOL 5 MG TABLET PO PRN (18:15)
[2022-04-19] MEDS ORDERED: LORazepam 1 MG TABLET PO PRN (18:15)
[2022-04-19] MEDS ORDERED: -PHARMACY VACCINE NOTE- MISC ONE (18:15)
[2022-04-19] MEDS ORDERED: ZOLPIDEM TARTRATE 10 MG TABLET PO PRN (18:15)
[2022-04-19] MEDS ORDERED: INFLUENZA VIRUS VACCINE QVS 2022-23 (6MO+)/PF 60 MCG/0.5 ML SYRINGE IM. ONE (18:15)
[2022-04-20] MEDS ORDERED: MOXI3DRO27 OS (04:28)
[2022-04-20 07:12] LABS: BASOPHILS % (AUTO) 1.5 % (0.0-2.0); HEMATOCRIT 41.4 % (41-53); HEMOGLOBIN 14.2 g/dL (13.5-17.5); LYMPHOCYTES # (AUTO) 1.4 K/uL (1.0-4.8); LYMPHOCYTES % (AUTO) 29.1 % (22.0-44.0); MEAN CORPUSCULAR HEMOGLOBIN 31.6 pg (26.0-34.0); MEAN CORPUSCULAR HGB CONC 34.4 G/dL (31.0-37.0); MEAN CORPUSCULAR VOLUME 92 fL (80-100); MONOCYTES # (AUTO) 0.6 K/uL (0.1-1.0); MONOCYTES % (AUTO) 11.8 % (2.0-9.0); NEUTROPHILS # (AUTO) 2.4 K/uL (1.8-7.7); NEUTROPHILS % (AUTO) 51.6 % (40.0-70.0); PLATELET COUNT (AUTO) 285 K/uL (150-450); RED BLOOD CELL COUNT(AUTO) 4.51 MIL/uL (4.50-5.90); RED CELL DISTRIBUTION WIDTH 14.5 % (11.5-14.5)
[2022-04-20 07:30] LABS: HEMOGLOBIN A1C 5.7 % (3.8-5.6)
[2022-04-20 07:34] LABS: ALANINE AMINOTRANSFERASE 32 U/L (12-78); ALBUMIN 2.8 g/dL (3.4-5.0); ALKALINE PHOSPHATASE 91 U/L (46-116); ANION GAP 1 mmol/L (8-16); ASPARTATE AMINOTRANSFERASE 18 U/L (15-37); BILIRUBIN,TOTAL 0.2 mg/dL (0.1-1.0); CALCIUM, TOTAL 8.9 mg/dL (8.8-10.5); CARBON DIOXIDE 31 mmol/L (22-29); CHLORIDE 103 mmol/L (98-107); CHOL/HDL RATIO 3.3 (4.2-7.3); CHOLESTEROL 166 mg/dL (131-200); CREATININE 1.09 mg/dL (0.60-1.30); FREE T4 (FREE THYROXINE) 0.97 ng/dL (0.76-1.46); GLUCOSE,RANDOM 115 mg/dL (70-110); HDL CHOLESTEROL 50 mg/dL (40-60); LDL CHOL (CALC.) 94 mg/dL (0-130); POTASSIUM 4.3 mmol/L (3.5-5.1); THYROID STIMULATING HORMONE 2.52 uIU/mL (0.36-3.74); TOTAL PROTEIN, SERUM 7.1 g/dL (6.4-8.2); TRIGLYCERIDES 109 mg/dL (15-150); UREA NITROGEN, BLOOD 16 mg/dL (7-18)
[2022-04-20 07:43] LABS: GLOMERULAR FILTR. RATE CALC > 60 mL/min (>60); SODIUM SERUM 135 mmol/L (136-145)
[2022-04-20] MEDS ORDERED: LORazepam 2 MG TABLET PO PRN (09:45)
[2022-04-20] MEDS ORDERED: LOPERAMIDE HCL 2 MG CAPSULE PO PRN ×2 (09:45→15:15)
[2022-04-20] MEDS ORDERED: CYANOCOBALAMIN 1,000 MCG/ML VIAL IM ONE (09:45)
[2022-04-20] MEDS ORDERED: GuaiFENesin/D-METHORPHAN [SUGAR-FREE] 200-20MG/10 ML SYRUP UDCUP PO PRN (09:45)
[2022-04-20 10:08] VITALS: BP 128/66
[2022-04-20] MEDS: FOLIC ACID 1 MG TABLET PO SCH (11:50)
[2022-04-20] MEDS: MULTIVITAMINS WITH MINERALS, THERAPEUTIC TABLET PO SCH (11:50)
[2022-04-20] MEDS: OMEGA-3/DHA/EPA/FISH OIL 1,000 MG CAPSULE PO SCH (11:50)
[2022-04-20] MEDS: THIAMINE 100 MG TABLET PO SCH ×2 (11:50→16:52)
[2022-04-20 13:08] VITALS: BP 119/74
[2022-04-20] MEDS: GABAPENTIN 300 MG CAPSULE PO SCH ×3 (13:13→20:30)
[2022-04-20] MEDS ORDERED: CloNIDine HCL 0.1 MG TABLET PO PRN (15:15)
[2022-04-20] MEDS ORDERED: ALBUTEROL SULFATE HFA 90 MCG/PUFF 8 GM INHALER IH PRN (15:15)
[2022-04-20] MEDS ORDERED: ONDANSETRON HCL 4 MG TABLET PO PRN (15:15)
[2022-04-20] MEDS ORDERED: DOCUSATE SODIUM 100 MG CAPSULE PO PRN (15:15)
[2022-04-20] MEDS ORDERED: PETROLATUM,WHITE 28 GM JELLY TP PRN (15:15)
[2022-04-20] MEDS ORDERED: BACITRACIN 28 GM OINTMENT TP PRN (15:15)
[2022-04-20] MEDS ORDERED: OMEPRAZOLE 20 MG CAPSULE PO PRN (15:15)
[2022-04-20] MEDS ORDERED: IBUPROFEN 600 MG TABLET PO PRN (15:15)
[2022-04-20] MEDS ORDERED: BENZOCAINE/MENTHOL LOZENGE PO PRN (15:15)
[2022-04-20] MEDS ORDERED: MAG HYDROX/AL HYDROX/SIMETH ES 30 ML SUSPENSION UDCUP PO PRN (15:15)
[2022-04-20] MEDS ORDERED: MAGNESIUM HYDROXIDE SUSPENSION 30 ML UDCUP PO PRN (15:15)
[2022-04-20] MEDS: MOXIFLOXACIN HCL 0.5% 3 ML OPHTHALMIC SOLUTION OS SCH (16:52)
[2022-04-20 18:29] VITALS: BP 148/81
[2022-04-20 20:19] VITALS: BP 135/71
[2022-04-20] MEDS: QUEtiapine FUMARATE 200 MG TABLET PO SCH (20:30)
[2022-04-20 21:00] VITALS: BP 135/71
[2022-04-21 00:54] VITALS: BP 130/75
[2022-04-21 04:19] VITALS: BP 128/68
[2022-04-21] MEDS ORDERED: LORazepam 2 MG TABLET PO PRN (07:00)
[2022-04-21 08:26] VITALS: BP 118/66
[2022-04-21] MEDS: MULTIVITAMINS WITH MINERALS, THERAPEUTIC TABLET PO SCH (09:39)
[2022-04-21] MEDS: LORazepam 2 MG TABLET PO SCH ×4 (09:40→21:10)
[2022-04-21] MEDS: FOLIC ACID 1 MG TABLET PO SCH (09:40)
[2022-04-21] MEDS: THIAMINE 100 MG TABLET PO SCH ×2 (09:40→17:05)
[2022-04-21] MEDS: OMEGA-3/DHA/EPA/FISH OIL 1,000 MG CAPSULE PO SCH (09:40)
[2022-04-21] MEDS: GABAPENTIN 300 MG CAPSULE PO SCH ×4 (09:40→21:10)
[2022-04-21] MEDS: MOXIFLOXACIN HCL 0.5% 3 ML OPHTHALMIC SOLUTION OS SCH ×3 (09:42→17:07)
[2022-04-21 13:02] VITALS: BP 118/66
[2022-04-21 17:02] VITALS: BP 112/67
[2022-04-21 20:18] VITALS: BP 112/67
[2022-04-21] MEDS: QUEtiapine FUMARATE 200 MG TABLET PO SCH (21:11)
[2022-04-22 08:47] VITALS: BP 116/70
[2022-04-22] MEDS: GABAPENTIN 300 MG CAPSULE PO SCH ×4 (08:59→20:53)
[2022-04-22] MEDS: THIAMINE 100 MG TABLET PO SCH ×2 (08:59→16:10)
[2022-04-22] MEDS: MULTIVITAMINS WITH MINERALS, THERAPEUTIC TABLET PO SCH (08:59)
[2022-04-22] MEDS: FOLIC ACID 1 MG TABLET PO SCH (09:00)
[2022-04-22] MEDS: OMEGA-3/DHA/EPA/FISH OIL 1,000 MG CAPSULE PO SCH (09:00)
[2022-04-22] MEDS: LORazepam 2 MG TABLET PO SCH ×4 (09:00→20:53)
[2022-04-22] MEDS: MOXIFLOXACIN HCL 0.5% 3 ML OPHTHALMIC SOLUTION OS SCH ×3 (09:02→16:09)
[2022-04-22 20:04] VITALS: BP 138/72
[2022-04-22] MEDS: QUEtiapine FUMARATE 200 MG TABLET PO SCH (20:53)
[2022-04-23] MEDS ORDERED: LORazepam 1 MG TABLET PO PRN (07:00)
[2022-04-23 08:43] VITALS: BP 121/75
[2022-04-23] MEDS: MULTIVITAMINS WITH MINERALS, THERAPEUTIC TABLET PO SCH (08:55)
[2022-04-23] MEDS: FOLIC ACID 1 MG TABLET PO SCH (08:55)
[2022-04-23] MEDS: THIAMINE 100 MG TABLET PO SCH ×2 (08:55→16:52)
[2022-04-23] MEDS: GABAPENTIN 300 MG CAPSULE PO SCH ×4 (08:55→20:32)
[2022-04-23] MEDS: MOXIFLOXACIN HCL 0.5% 3 ML OPHTHALMIC SOLUTION OS SCH ×3 (08:55→16:52)
[2022-04-23] MEDS: OMEGA-3/DHA/EPA/FISH OIL 1,000 MG CAPSULE PO SCH (08:55)
[2022-04-23] MEDS: LORazepam 1 MG TABLET PO SCH ×4 (08:55→20:33)
[2022-04-23 20:03] VITALS: BP 105/69
[2022-04-23] MEDS: QUEtiapine FUMARATE 200 MG TABLET PO SCH (20:33)
[2022-04-24 08:16] VITALS: BP 122/72
[2022-04-24 08:36] LABS: GLUCOMETER DEV NAME(LOC) POC.BV
[2022-04-24] MEDS: MULTIVITAMINS WITH MINERALS, THERAPEUTIC TABLET PO SCH (09:24)
[2022-04-24] MEDS: MOXIFLOXACIN HCL 0.5% 3 ML OPHTHALMIC SOLUTION OS SCH ×3 (09:24→16:47)
[2022-04-24] MEDS: OMEGA-3/DHA/EPA/FISH OIL 1,000 MG CAPSULE PO SCH (09:24)
[2022-04-24] MEDS: THIAMINE 100 MG TABLET PO SCH ×2 (09:24→16:46)
[2022-04-24] MEDS: GABAPENTIN 300 MG CAPSULE PO SCH ×4 (09:25→20:07)
[2022-04-24] MEDS: FOLIC ACID 1 MG TABLET PO SCH (09:25)
[2022-04-24] MEDS: LORazepam 1 MG TABLET PO PRN ×2 (13:51→19:41)
[2022-04-24] MEDS: HydrOXYzine PAMOATE 50 MG CAPSULE PO PRN (17:40)
[2022-04-24] MEDS: ACETAMINOPHEN 325 MG TABLET PO PRN (17:40)
[2022-04-24] MEDS: QUEtiapine FUMARATE 200 MG TABLET PO SCH (20:07)
[2022-04-24 20:21] VITALS: BP 128/74
[2022-04-25] VITALS (12 sets, daily range): BP systolic 116–129; BP diastolic 62–89
[2022-04-25] MEDS: ACETAMINOPHEN 325 MG TABLET PO PRN (01:23)
[2022-04-25] MEDS: THIAMINE 100 MG TABLET PO SCH ×2 (08:08→16:29)
[2022-04-25] MEDS: OMEGA-3/DHA/EPA/FISH OIL 1,000 MG CAPSULE PO SCH (08:08)
[2022-04-25] MEDS: FOLIC ACID 1 MG TABLET PO SCH (08:08)
[2022-04-25] MEDS: MULTIVITAMINS WITH MINERALS, THERAPEUTIC TABLET PO SCH (08:09)
[2022-04-25] MEDS: GABAPENTIN 300 MG CAPSULE PO SCH ×4 (08:09→20:09)
[2022-04-25] MEDS: MOXIFLOXACIN HCL 0.5% 3 ML OPHTHALMIC SOLUTION OS SCH ×3 (08:10→16:30)
[2022-04-25] MEDS: HydrOXYzine PAMOATE 50 MG CAPSULE PO PRN (10:44)
[2022-04-25] MEDS: QUEtiapine FUMARATE 200 MG TABLET PO SCH (20:09)
[2022-04-26 08:26] VITALS: BP 124/74
[2022-04-26] MEDS: OMEGA-3/DHA/EPA/FISH OIL 1,000 MG CAPSULE PO SCH (09:03)
[2022-04-26] MEDS: MULTIVITAMINS WITH MINERALS, THERAPEUTIC TABLET PO SCH (09:03)
[2022-04-26] MEDS: FOLIC ACID 1 MG TABLET PO SCH (09:03)
[2022-04-26] MEDS: MOXIFLOXACIN HCL 0.5% 3 ML OPHTHALMIC SOLUTION OS SCH ×2 (09:04→12:10)
[2022-04-26] MEDS: THIAMINE 100 MG TABLET PO SCH ×2 (09:04→16:43)
[2022-04-26] MEDS: GABAPENTIN 300 MG CAPSULE PO SCH ×4 (09:04→20:39)
[2022-04-26] MEDS: GENTAMICIN SULFATE 0.3% OPHTHALMIC SOLUTION 5 ML OS SCH (16:44)
[2022-04-26] MEDS: QUEtiapine FUMARATE 200 MG TABLET PO SCH (20:39)
[2022-04-26 22:03] VITALS: BP 124/74
[2022-04-27 07:20] LABS: BASOPHILS % (AUTO) 0.7 % (0.0-2.0); EOSINOPHILS % (AUTO) 4.5 % (1.0-6.0); HEMATOCRIT 42.7 % (41-53); HEMOGLOBIN 14.6 g/dL (13.5-17.5); LYMPHOCYTES # (AUTO) 1.5 K/uL (1.0-4.8); MEAN CORPUSCULAR HEMOGLOBIN 31.1 pg (26.0-34.0); MEAN CORPUSCULAR HGB CONC 34.1 G/dL (31.0-37.0); MEAN CORPUSCULAR VOLUME 91 fL (80-100); MONOCYTES # (AUTO) 0.5 K/uL (0.1-1.0); MONOCYTES % (AUTO) 9.3 % (2.0-9.0); NEUTROPHILS # (AUTO) 3.3 K/uL (1.8-7.7); NEUTROPHILS % (AUTO) 58.5 % (40.0-70.0); PLATELET COUNT (AUTO) 304 K/uL (150-450); RED BLOOD CELL COUNT(AUTO) 4.68 MIL/uL (4.50-5.90)
[2022-04-27 07:30] LABS: ANION GAP 7 mmol/L (8-16); CARBON DIOXIDE 28 mmol/L (22-29); CHLORIDE 103 mmol/L (98-107); CREATININE 0.95 mg/dL (0.60-1.30); GLUCOSE,RANDOM 101 mg/dL (70-110); POTASSIUM 4.4 mmol/L (3.5-5.1); SODIUM SERUM 138 mmol/L (136-145); UREA NITROGEN, BLOOD 17 mg/dL (7-18)
[2022-04-27 07:31] LABS: GLOMERULAR FILTR. RATE CALC > 60 mL/min (>60)
[2022-04-27] MEDS: FOLIC ACID 1 MG TABLET PO SCH (08:23)
[2022-04-27] MEDS: THIAMINE 100 MG TABLET PO SCH ×2 (08:23→16:42)
[2022-04-27] MEDS: MULTIVITAMINS WITH MINERALS, THERAPEUTIC TABLET PO SCH (08:23)
[2022-04-27] MEDS: OMEGA-3/DHA/EPA/FISH OIL 1,000 MG CAPSULE PO SCH (08:23)
[2022-04-27] MEDS: GABAPENTIN 300 MG CAPSULE PO SCH ×4 (08:23→20:29)
[2022-04-27] MEDS: GENTAMICIN SULFATE 0.3% OPHTHALMIC SOLUTION 5 ML OS SCH ×2 (08:24→16:42)
[2022-04-27 09:25] VITALS: BP 114/63
[2022-04-27] MEDS: HydrOXYzine PAMOATE 50 MG CAPSULE PO PRN ×2 (10:12→18:15)
[2022-04-27 20:03] VITALS: BP 111/70
[2022-04-27] MEDS: QUEtiapine FUMARATE 200 MG TABLET PO SCH (20:29)
[2022-04-28] MEDS: GENTAMICIN SULFATE 0.3% OPHTHALMIC SOLUTION 5 ML OS SCH ×2 (09:06→16:49)
[2022-04-28] MEDS: FOLIC ACID 1 MG TABLET PO SCH (09:06)
[2022-04-28] MEDS: OMEGA-3/DHA/EPA/FISH OIL 1,000 MG CAPSULE PO SCH (09:06)
[2022-04-28] MEDS: THIAMINE 100 MG TABLET PO SCH ×2 (09:07→16:47)
[2022-04-28] MEDS: GABAPENTIN 300 MG CAPSULE PO SCH ×4 (09:07→20:36)
[2022-04-28] MEDS: MULTIVITAMINS WITH MINERALS, THERAPEUTIC TABLET PO SCH (09:07)
[2022-04-28 09:54] VITALS: BP 103/58
[2022-04-28 20:31] VITALS: BP 118/65
[2022-04-28] MEDS: QUEtiapine FUMARATE 200 MG TABLET PO SCH (20:36)
[2022-04-29 08:11] VITALS: BP 128/69
[2022-04-29] MEDS: THIAMINE 100 MG TABLET PO SCH ×2 (09:38→17:00)
[2022-04-29] MEDS: OMEGA-3/DHA/EPA/FISH OIL 1,000 MG CAPSULE PO SCH (09:38)
[2022-04-29] MEDS: GABAPENTIN 300 MG CAPSULE PO SCH ×4 (09:39→21:20)
[2022-04-29] MEDS: MULTIVITAMINS WITH MINERALS, THERAPEUTIC TABLET PO SCH (09:39)
[2022-04-29] MEDS: FOLIC ACID 1 MG TABLET PO SCH (09:39)
[2022-04-29] MEDS: GENTAMICIN SULFATE 0.3% OPHTHALMIC SOLUTION 5 ML OS SCH ×2 (09:40→17:00)
[2022-04-29 21:13] VITALS: BP 143/96
[2022-04-29] MEDS: QUEtiapine FUMARATE 200 MG TABLET PO SCH (21:20)
[2022-04-30] MEDS: MULTIVITAMINS WITH MINERALS, THERAPEUTIC TABLET PO SCH (08:38)
[2022-04-30] MEDS: OMEGA-3/DHA/EPA/FISH OIL 1,000 MG CAPSULE PO SCH (08:38)
[2022-04-30] MEDS: GABAPENTIN 300 MG CAPSULE PO SCH ×4 (08:38→20:17)
[2022-04-30] MEDS: GENTAMICIN SULFATE 0.3% OPHTHALMIC SOLUTION 5 ML OS SCH ×2 (08:39→16:38)
[2022-04-30 08:42] VITALS: BP 127/64
[2022-04-30] MEDS: HydrOXYzine PAMOATE 50 MG CAPSULE PO PRN (18:34)
[2022-04-30 20:16] VITALS: BP 103/75
[2022-04-30] MEDS: QUEtiapine FUMARATE 200 MG TABLET PO SCH (20:17)
[2022-05-01 07:36] LABS: GLUCOMETER DEV NAME(LOC) POC.BV
[2022-05-01 08:23] VITALS: BP 107/68
[2022-05-01] MEDS: OMEGA-3/DHA/EPA/FISH OIL 1,000 MG CAPSULE PO SCH (09:04)
[2022-05-01] MEDS: GABAPENTIN 300 MG CAPSULE PO SCH ×4 (09:04→20:27)
[2022-05-01] MEDS: MULTIVITAMINS WITH MINERALS, THERAPEUTIC TABLET PO SCH (09:04)
[2022-05-01] MEDS: GENTAMICIN SULFATE 0.3% OPHTHALMIC SOLUTION 5 ML OS SCH ×2 (09:05→16:32)
[2022-05-01] MEDS: HydrOXYzine PAMOATE 50 MG CAPSULE PO PRN (18:39)
[2022-05-01 20:20] VITALS: BP 148/71
[2022-05-01] MEDS: QUEtiapine FUMARATE 200 MG TABLET PO SCH (20:28)
[2022-05-02 08:40] VITALS: BP 102/63
[2022-05-02] MEDS: MULTIVITAMINS WITH MINERALS, THERAPEUTIC TABLET PO SCH (08:55)
[2022-05-02] MEDS: GABAPENTIN 300 MG CAPSULE PO SCH ×4 (08:55→20:09)
[2022-05-02] MEDS: OMEGA-3/DHA/EPA/FISH OIL 1,000 MG CAPSULE PO SCH (08:55)
[2022-05-02] MEDS: GENTAMICIN SULFATE 0.3% OPHTHALMIC SOLUTION 5 ML OS SCH ×2 (08:56→17:11)
[2022-05-02 20:03] VITALS: BP 100/65
[2022-05-02] MEDS: QUEtiapine FUMARATE 200 MG TABLET PO SCH (20:09)
[2022-05-03 08:32] VITALS: BP 102/61
[2022-05-03] MEDS: OMEGA-3/DHA/EPA/FISH OIL 1,000 MG CAPSULE PO SCH (08:36)
[2022-05-03] MEDS: GABAPENTIN 300 MG CAPSULE PO SCH ×4 (08:36→20:27)
[2022-05-03] MEDS: MULTIVITAMINS WITH MINERALS, THERAPEUTIC TABLET PO SCH (08:36)
[2022-05-03] MEDS: GENTAMICIN SULFATE 0.3% OPHTHALMIC SOLUTION 5 ML OS SCH ×2 (08:43→17:12)
[2022-05-03] MEDS: ACETAMINOPHEN 325 MG TABLET PO PRN (15:40)
[2022-05-03 20:12] VITALS: BP 112/77
[2022-05-03] MEDS: QUEtiapine FUMARATE 200 MG TABLET PO SCH (20:27)
[2022-05-04 08:16] VITALS: BP 106/66
[2022-05-04] MEDS: OMEGA-3/DHA/EPA/FISH OIL 1,000 MG CAPSULE PO SCH (08:26)
[2022-05-04] MEDS: MULTIVITAMINS WITH MINERALS, THERAPEUTIC TABLET PO SCH (08:26)
[2022-05-04] MEDS: GABAPENTIN 300 MG CAPSULE PO SCH ×4 (08:28→20:22)
[2022-05-04] MEDS: GENTAMICIN SULFATE 0.3% OPHTHALMIC SOLUTION 5 ML OS SCH ×2 (08:28→16:15)
[2022-05-04 20:09] VITALS: BP 119/66
[2022-05-04] MEDS: QUEtiapine FUMARATE 200 MG TABLET PO SCH (20:22)
[2022-05-05 08:25] VITALS: BP 111/65
[2022-05-05] MEDS: OMEGA-3/DHA/EPA/FISH OIL 1,000 MG CAPSULE PO SCH (08:54)
[2022-05-05] MEDS: GABAPENTIN 300 MG CAPSULE PO SCH ×4 (08:54→20:31)
[2022-05-05] MEDS: MULTIVITAMINS WITH MINERALS, THERAPEUTIC TABLET PO SCH (08:54)
[2022-05-05] MEDS: GENTAMICIN SULFATE 0.3% OPHTHALMIC SOLUTION 5 ML OS SCH ×2 (08:55→16:33)
[2022-05-05 20:19] VITALS: BP 136/79
[2022-05-05] MEDS: ACETAMINOPHEN 325 MG TABLET PO PRN (20:29)
[2022-05-05] MEDS: QUEtiapine FUMARATE 200 MG TABLET PO SCH (20:31)
[2022-05-06 08:30] VITALS: BP 120/71
[2022-05-06] MEDS: MULTIVITAMINS WITH MINERALS, THERAPEUTIC TABLET PO SCH (08:51)
[2022-05-06] MEDS: GABAPENTIN 300 MG CAPSULE PO SCH ×4 (08:51→20:32)
[2022-05-06] MEDS: GENTAMICIN SULFATE 0.3% OPHTHALMIC SOLUTION 5 ML OS SCH ×2 (08:51→16:34)
[2022-05-06] MEDS: OMEGA-3/DHA/EPA/FISH OIL 1,000 MG CAPSULE PO SCH (08:51)
[2022-05-06 20:16] VITALS: BP 135/87
[2022-05-06] MEDS: QUEtiapine FUMARATE 200 MG TABLET PO SCH (20:32)
[2022-05-07] MEDS: OMEGA-3/DHA/EPA/FISH OIL 1,000 MG CAPSULE PO SCH (08:11)
[2022-05-07] MEDS: GABAPENTIN 300 MG CAPSULE PO SCH ×4 (08:11→20:10)
[2022-05-07] MEDS: MULTIVITAMINS WITH MINERALS, THERAPEUTIC TABLET PO SCH (08:11)
[2022-05-07] MEDS: GENTAMICIN SULFATE 0.3% OPHTHALMIC SOLUTION 5 ML OS SCH ×2 (08:13→16:57)
[2022-05-07 08:23] VITALS: BP 113/66
[2022-05-07 20:00] VITALS: BP 140/80
[2022-05-07] MEDS: QUEtiapine FUMARATE 200 MG TABLET PO SCH (20:10)
[2022-05-08 08:11] VITALS: BP 124/72
[2022-05-08 08:16] LABS: GLUCOMETER DEV NAME(LOC) POC.BV
[2022-05-08] MEDS: MULTIVITAMINS WITH MINERALS, THERAPEUTIC TABLET PO SCH (08:47)
[2022-05-08] MEDS: GABAPENTIN 300 MG CAPSULE PO SCH (08:47)
[2022-05-08] MEDS: OMEGA-3/DHA/EPA/FISH OIL 1,000 MG CAPSULE PO SCH (08:47)
[2022-05-08] MEDS: GENTAMICIN SULFATE 0.3% OPHTHALMIC SOLUTION 5 ML OS SCH (08:48)
[2022-05-08] MEDS ORDERED: QUET200T30 PO (11:00)
[2022-05-08] MEDS ORDERED: OMEG-135 PO (11:00)
[2022-05-08] MEDS ORDERED: GABA-1181 PO (11:00)
== END 2022-05-08 15:55 | disposition home or self-care (01) | DRG 885 ==
LOC: B2S 17:42 → B3A 04-26 19:15 → B2S 04-28 13:18
PROVIDERS: ADMIT Psychiatry & Neurology Psychiatry; ATTEND Psychiatry & Neurology Psychiatry
DX: F25.1 Schizoaffective disorder, depressive type (principal); F15.20 Other stimulant dependence, uncomplicated; E55.9 Vitamin D deficiency, unspecified; E78.1 Pure hyperglyceridemia; E78.5 Hyperlipidemia, unspecified; F10.20 Alcohol dependence, uncomplicated; F41.9 Anxiety disorder, unspecified; G47.00 Insomnia, unspecified; Z20.822 Contact with and (suspected) exposure to COVID-19; I10 Essential (primary) hypertension; J44.9 Chronic obstructive pulmonary disease, unspecified; K21.9 Gastro-esophageal reflux disease without esophagitis; Z72.0 Tobacco use; Z71.6 Tobacco abuse counseling; Z59.00 Homelessness unspecified; Z79.899 Other long term (current) drug therapy; Z91.14 Patient's other noncompliance with medication regimen; Z91.51 Personal history of suicidal behavior
CPT/HCPCS: 80048; 80053; 80061; 83036; 84439; 84443; 85025; J3420

== ENCOUNTER 2022-04-19 21:55 | Emergency (ER) | payer MEDICARE, MEDICAID ==
[~2022-04-19] VITALS: Ht 188 cm; Wt 100.0 kg
[2022-04-20] MEDS ORDERED: TETRACAINE HCL/PF 0.5% 4 ML OPHTHALMIC SOLUTION OS ONE (01:00)
[2022-04-20] MEDS ORDERED: FLUORESCEIN SODIUM 1 MG STRIP OS ONE (01:00)
[2022-04-20] MEDS ORDERED: MOXI3DRO27 OS (04:28)
[2022-04-20 08:00] VITALS: BP 137/75
== END 2022-04-20 08:40 | disposition home or self-care (01) ==
LOC: EMS 21:57
DX: S05.02XA Injury of conjunctiva and corneal abrasion without foreign body, left eye, initial encounter (principal); F20.9 Schizophrenia, unspecified; F31.9 Bipolar disorder, unspecified; F10.20 Alcohol dependence, uncomplicated; F14.10 Cocaine abuse, uncomplicated; F15.10 Other stimulant abuse, uncomplicated; I10 Essential (primary) hypertension; H10.32 Unspecified acute conjunctivitis, left eye; K92.2 Gastrointestinal hemorrhage, unspecified; X58.XXXA Exposure to other specified factors, initial encounter; Y93.89 Activity, other specified; Y92.89 Other specified places as the place of occurrence of the external cause; Y99.8 Other external cause status
CPT/HCPCS: 99283

== ENCOUNTER 2022-04-29 15:13 | Emergency (ER) | payer MEDICARE, MEDICAID ==
[~2022-04-29] VITALS: Ht 185.4 cm; Wt 100.0 kg
[~2022-04-29 15:13] MED LIST changes: +MOXI3DRO27 OS; -NALT50TA6 PO; -QUET200T PO
[2022-04-29] MEDS ORDERED: IOHEXOL 300 MG/ML 100 ML VIAL ONE (18:00)
[2022-04-29] MEDS ORDERED: PROPARACAINE HCL 0.5% 15 ML OPHTHALMIC SOLUTION OS ONE (18:00)
[2022-04-29] MEDS ORDERED: FLUORESCEIN SODIUM 1 MG STRIP OU ONE (18:00)
[2022-04-29] MEDS ORDERED: SODIUM CHLORIDE 0.9% 100 ML ONE (18:01)
[2022-04-29 18:13] LABS: ANION GAP 5 mmol/L (8-16); CALCIUM, TOTAL 9.3 mg/dL (8.8-10.5); CARBON DIOXIDE 28 mmol/L (22-29); CHLORIDE 102 mmol/L (98-107); CREATININE 0.98 mg/dL (0.60-1.30); GLUCOSE,RANDOM 101 mg/dL (70-110); POTASSIUM 4.2 mmol/L (3.5-5.1); SODIUM SERUM 135 mmol/L (136-145); UREA NITROGEN, BLOOD 15 mg/dL (7-18)
[2022-04-29 18:17] LABS: GLOMERULAR FILTR. RATE CALC > 60 mL/min (>60)
[2022-04-29 18:21] LABS: ALANINE AMINOTRANSFERASE 62 U/L (12-78); ALBUMIN 3.2 g/dL (3.4-5.0); ALKALINE PHOSPHATASE 104 U/L (46-116); ASPARTATE AMINOTRANSFERASE 22 U/L (15-37); BILIRUBIN,TOTAL 0.1 mg/dL (0.1-1.0); TOTAL PROTEIN, SERUM 7.5 g/dL (6.4-8.2)
[2022-04-29 20:15] VITALS: BP 144/82
== END 2022-04-29 21:08 | disposition home or self-care (01) ==
LOC: EMS 15:20
DX: F25.9 Schizoaffective disorder, unspecified (principal); H53.8 Other visual disturbances; F10.20 Alcohol dependence, uncomplicated; F31.9 Bipolar disorder, unspecified; I10 Essential (primary) hypertension; F12.90 Cannabis use, unspecified, uncomplicated; F15.90 Other stimulant use, unspecified, uncomplicated; F14.90 Cocaine use, unspecified, uncomplicated; Z98.890 Other specified postprocedural states
CPT/HCPCS: 99284; 70481; 80053; 36415; J7050; Q9967

== ENCOUNTER 2022-07-24 10:59 | Inpatient (IN) | payer MEDICARE, MEDICAID ==
[~2022-07-24] VITALS: Ht 185.4 cm; Wt 101.6 kg
[~2022-07-24 10:59] MED LIST changes: -MOXI3DRO27 OS; -NALT50TA PO
[2022-07-24 12:15] LABS: BASOPHILS % (AUTO) 1.1 % (0.0-2.0); EOSINOPHILS % (AUTO) 3.5 % (1.0-6.0); HEMATOCRIT 42.8 % (41-53); HEMOGLOBIN 14.7 g/dL (13.5-17.5); LYMPHOCYTES # (AUTO) 1.6 K/uL (1.0-4.8); LYMPHOCYTES % (AUTO) 25.8 % (22.0-44.0); MEAN CORPUSCULAR HEMOGLOBIN 31.7 pg (26.0-34.0); MEAN CORPUSCULAR HGB CONC 34.3 G/dL (31.0-37.0); MEAN CORPUSCULAR VOLUME 93 fL (80-100); MONOCYTES # (AUTO) 0.5 K/uL (0.1-1.0); MONOCYTES % (AUTO) 8.6 % (2.0-9.0); NEUTROPHILS # (AUTO) 3.8 K/uL (1.8-7.7); PLATELET COUNT (AUTO) 267 K/uL (150-450); RED BLOOD CELL COUNT(AUTO) 4.62 MIL/uL (4.50-5.90); RED CELL DISTRIBUTION WIDTH 14.9 % (11.5-14.5)
[2022-07-24 12:19] LABS: ANION GAP 7 mmol/L (8-16); CALCIUM, TOTAL 8.9 mg/dL (8.8-10.5); CARBON DIOXIDE 26 mmol/L (22-29); CHLORIDE 103 mmol/L (98-107); CREATININE 0.77 mg/dL (0.60-1.30); GLOMERULAR FILTR. RATE CALC > 60 mL/min (>60); GLUCOSE,RANDOM 85 mg/dL (70-110); POTASSIUM 4.3 mmol/L (3.5-5.1); SODIUM SERUM 136 mmol/L (136-145); UREA NITROGEN, BLOOD 15 mg/dL (7-18)
[2022-07-24 12:21] LABS: COVID AG,FIA SOURCE NASOPHARYNGEAL
[2022-07-24 12:26] LABS: ALANINE AMINOTRANSFERASE 31 U/L (12-78); ALBUMIN 3.8 g/dL (3.4-5.0); ALKALINE PHOSPHATASE 95 U/L (46-116); ASPARTATE AMINOTRANSFERASE 25 U/L (15-37); BILIRUBIN,TOTAL 0.4 mg/dL (0.1-1.0); TOTAL PROTEIN, SERUM 7.6 g/dL (6.4-8.2)
[2022-07-24 13:32] LABS: AMPHET/METH SCREEN,URINE NEGATIVE (NEGATIVE); BARBITURATE SCREEN, URINE NEGATIVE (NEGATIVE); BENZODIAZEPINES SCREEN,URINE NEGATIVE (NEGATIVE); CANNABINOID SCREEN,URINE NEGATIVE (NEGATIVE); COCAINE SCREEN,URINE NEGATIVE (NEGATIVE); METHADONE SCREEN, URINE NEGATIVE (NEGATIVE); OPIATE SCREEN,URINE NEGATIVE (NEGATIVE); PHENCYCLIDINE SCREEN,URINE NEGATIVE (NEGATIVE)
[2022-07-24] MEDS ORDERED: ZOLPIDEM TARTRATE 10 MG TABLET PO PRN (14:00)
[2022-07-24] MEDS ORDERED: HALOPERIDOL 5 MG TABLET PO PRN (14:00)
[2022-07-24 22:02] VITALS: BP 112/62
[2022-07-25 08:19] VITALS: BP 115/63
[2022-07-25] MEDS ORDERED: BENZOCAINE/MENTHOL LOZENGE PO PRN (08:45)
[2022-07-25] MEDS ORDERED: LOPERAMIDE HCL 2 MG CAPSULE PO PRN (08:45)
[2022-07-25] MEDS ORDERED: CloNIDine HCL 0.1 MG TABLET PO PRN (08:45)
[2022-07-25] MEDS ORDERED: OMEPRAZOLE 20 MG CAPSULE PO PRN (08:45)
[2022-07-25] MEDS ORDERED: PETROLATUM,WHITE 28 GM JELLY TP PRN (08:45)
[2022-07-25] MEDS ORDERED: MAG HYDROX/AL HYDROX/SIMETH ES 30 ML SUSPENSION UDCUP PO PRN (08:45)
[2022-07-25] MEDS ORDERED: ONDANSETRON HCL 4 MG TABLET PO PRN (08:45)
[2022-07-25] MEDS ORDERED: BACITRACIN 28 GM OINTMENT TP PRN (08:45)
[2022-07-25] MEDS ORDERED: ALBUTEROL SULFATE HFA 90 MCG/PUFF 8 GM INHALER IH PRN (08:45)
[2022-07-25] MEDS ORDERED: MAGNESIUM HYDROXIDE SUSPENSION 30 ML UDCUP PO PRN (08:45)
[2022-07-25] MEDS ORDERED: IBUPROFEN 600 MG TABLET PO PRN (08:45)
[2022-07-25] MEDS ORDERED: DOCUSATE SODIUM 100 MG CAPSULE PO PRN (08:45)
[2022-07-25] MEDS ORDERED: ACETAMINOPHEN 325 MG TABLET PO PRN (08:45)
[2022-07-25] MEDS: OMEGA-3/DHA/EPA/FISH OIL 1,000 MG CAPSULE PO SCH (11:01)
[2022-07-25 21:47] VITALS: BP 120/73
[2022-07-25] MEDS: LORazepam 2 MG TABLET PO PRN (22:08)
[2022-07-26] MEDS: OMEGA-3/DHA/EPA/FISH OIL 1,000 MG CAPSULE PO SCH (08:22)
[2022-07-26 09:29] VITALS: BP 99/61
[2022-07-26] MEDS: GABAPENTIN 400 MG CAPSULE PO SCH (16:30)
[2022-07-26 20:00] VITALS: BP 111/68
[2022-07-26] MEDS: QUEtiapine FUMARATE 200 MG TABLET PO SCH (20:14)
[2022-07-27] MEDS: OMEGA-3/DHA/EPA/FISH OIL 1,000 MG CAPSULE PO SCH (08:46)
[2022-07-27] MEDS: GABAPENTIN 400 MG CAPSULE PO SCH ×3 (08:47→16:28)
[2022-07-27 09:58] VITALS: BP 113/62
[2022-07-27 20:09] VITALS: BP 112/67
[2022-07-27] MEDS: QUEtiapine FUMARATE 200 MG TABLET PO SCH (20:23)
[2022-07-28 08:35] VITALS: BP 110/63
[2022-07-28] MEDS: OMEGA-3/DHA/EPA/FISH OIL 1,000 MG CAPSULE PO SCH (08:38)
[2022-07-28] MEDS: GABAPENTIN 400 MG CAPSULE PO SCH ×3 (08:38→16:34)
[2022-07-28 20:08] VITALS: BP 100/61
[2022-07-28] MEDS: QUEtiapine FUMARATE 200 MG TABLET PO SCH (20:36)
[2022-07-29 08:01] LABS: GLUCOMETER DEV NAME(LOC) POC.BV
[2022-07-29] MEDS: OMEGA-3/DHA/EPA/FISH OIL 1,000 MG CAPSULE PO SCH (08:06)
[2022-07-29] MEDS: GABAPENTIN 400 MG CAPSULE PO SCH ×3 (08:06→16:00)
[2022-07-29 08:22] VITALS: BP 105/60
[2022-07-29] MEDS: LORazepam 2 MG TABLET PO PRN (15:55)
[2022-07-29] MEDS: QUEtiapine FUMARATE 200 MG TABLET PO SCH (20:32)
[2022-07-29 20:38] VITALS: BP 119/77
[2022-07-30 08:14] VITALS: BP 106/61
[2022-07-30] MEDS: GABAPENTIN 400 MG CAPSULE PO SCH ×3 (08:49→16:18)
[2022-07-30] MEDS: OMEGA-3/DHA/EPA/FISH OIL 1,000 MG CAPSULE PO SCH (08:49)
[2022-07-30 20:16] VITALS: BP 111/73
[2022-07-30] MEDS: QUEtiapine FUMARATE 200 MG TABLET PO SCH (20:32)
[2022-07-31 08:25] VITALS: BP 112/61
[2022-07-31] MEDS: GABAPENTIN 400 MG CAPSULE PO SCH ×3 (08:47→16:37)
[2022-07-31] MEDS: OMEGA-3/DHA/EPA/FISH OIL 1,000 MG CAPSULE PO SCH (08:47)
[2022-07-31] MEDS: QUEtiapine FUMARATE 200 MG TABLET PO SCH (20:03)
[2022-07-31 20:18] VITALS: BP 124/82
[2022-08-01] MEDS: OMEGA-3/DHA/EPA/FISH OIL 1,000 MG CAPSULE PO SCH (08:15)
[2022-08-01] MEDS: GABAPENTIN 400 MG CAPSULE PO SCH ×3 (08:15→16:20)
[2022-08-01 08:39] VITALS: BP 108/69
[2022-08-01 20:21] VITALS: BP 118/70
[2022-08-01] MEDS: QUEtiapine FUMARATE 200 MG TABLET PO SCH (20:29)
[2022-08-01] MEDS: LORazepam 2 MG TABLET PO PRN (20:44)
[2022-08-02 08:20] VITALS: BP 102/60
[2022-08-02] MEDS: OMEGA-3/DHA/EPA/FISH OIL 1,000 MG CAPSULE PO SCH (08:29)
[2022-08-02] MEDS: GABAPENTIN 400 MG CAPSULE PO SCH ×3 (08:29→16:14)
[2022-08-02] MEDS: QUEtiapine FUMARATE 200 MG TABLET PO SCH (20:15)
[2022-08-02 20:19] VITALS: BP 135/86
[2022-08-02] MEDS: LORazepam 2 MG TABLET PO PRN (20:23)
[2022-08-03 08:14] VITALS: BP 112/64
[2022-08-03] MEDS: GABAPENTIN 400 MG CAPSULE PO SCH ×3 (08:35→16:17)
[2022-08-03] MEDS: OMEGA-3/DHA/EPA/FISH OIL 1,000 MG CAPSULE PO SCH (08:35)
[2022-08-03] MEDS: QUEtiapine FUMARATE 200 MG TABLET PO SCH (20:11)
[2022-08-03 20:32] VITALS: BP 110/62
[2022-08-04 08:41] VITALS: BP 113/65
[2022-08-04] MEDS: LORazepam 2 MG TABLET PO PRN ×2 (09:09→20:42)
[2022-08-04] MEDS: OMEGA-3/DHA/EPA/FISH OIL 1,000 MG CAPSULE PO SCH (09:09)
[2022-08-04] MEDS: GABAPENTIN 400 MG CAPSULE PO SCH ×3 (09:09→17:03)
[2022-08-04] MEDS: QUEtiapine FUMARATE 200 MG TABLET PO SCH (20:17)
[2022-08-04 20:50] VITALS: BP 106/59
[2022-08-05 08:31] VITALS: BP 109/69
[2022-08-05] MEDS: OMEGA-3/DHA/EPA/FISH OIL 1,000 MG CAPSULE PO SCH (08:40)
[2022-08-05] MEDS: GABAPENTIN 400 MG CAPSULE PO SCH ×3 (08:40→16:10)
[2022-08-05 11:56] LABS: GLUCOMETER DEV NAME(LOC) POC.BV
[2022-08-05] MEDS ORDERED: QUET200T30 PO (16:00)
[2022-08-05] MEDS ORDERED: GABA-1201 PO (16:00)
== END 2022-08-05 17:23 | disposition home or self-care (01) | DRG 885 ==
LOC: EMS 11:07 → B2S 18:43
PROVIDERS: ADMIT Psychiatry & Neurology Psychiatry; ATTEND Psychiatry & Neurology Psychiatry
DX: F25.9 Schizoaffective disorder, unspecified (principal); R45.851 Suicidal ideations; K21.9 Gastro-esophageal reflux disease without esophagitis; J44.9 Chronic obstructive pulmonary disease, unspecified; Z20.822 Contact with and (suspected) exposure to COVID-19; F41.9 Anxiety disorder, unspecified; F10.10 Alcohol abuse, uncomplicated; E78.5 Hyperlipidemia, unspecified; E78.1 Pure hyperglyceridemia; E55.9 Vitamin D deficiency, unspecified; Z71.6 Tobacco abuse counseling; F17.200 Nicotine dependence, unspecified, uncomplicated; G47.00 Insomnia, unspecified; I10 Essential (primary) hypertension; Z91.14 Patient's other noncompliance with medication regimen
CPT/HCPCS: 80053; 80307; 85025; 99285; G0480

== ENCOUNTER 2023-04-21 02:52 | Emergency (ER) | payer MEDICARE, MEDICAID ==
[~2023-04-21] VITALS: Ht 154.9 cm; Wt 112.0 kg
[~2023-04-21 02:52] MED LIST changes: +BUPR-49 PO; -GABA-1181 PO; +GABA-534 PO; -OMEG-135 PO
[2023-04-21 03:29] LABS: BASOPHILS % (AUTO) 0.7 % (0.0-2.0); HEMOGLOBIN 14.7 g/dL (13.5-17.5); LYMPHOCYTES # (AUTO) 1.7 K/uL (1.0-4.8); LYMPHOCYTES % (AUTO) 20.3 % (22.0-44.0); MEAN CORPUSCULAR HEMOGLOBIN 32.1 pg (26.0-34.0); MEAN CORPUSCULAR HGB CONC 34.2 G/dL (31.0-37.0); MEAN CORPUSCULAR VOLUME 94 fL (80-100); MONOCYTES # (AUTO) 0.6 K/uL (0.1-1.0); MONOCYTES % (AUTO) 7.7 % (2.0-9.0); NEUTROPHILS # (AUTO) 5.5 K/uL (1.8-7.7); NEUTROPHILS % (AUTO) 66.3 % (40.0-70.0); PLATELET COUNT (AUTO) 280 K/uL (150-450); RED BLOOD CELL COUNT(AUTO) 4.59 MIL/uL (4.50-5.90); WHITE BLOOD COUNT (AUTO) 8.3 K/uL (4.5-11.0)
[2023-04-21 03:32] VITALS: BP 134/79; PULSE 88; RESP 20; TEMP 97.7
[2023-04-21 04:07] LABS: ALCOHOL, BLOOD (SERUM) < 3 mg/dL (0-10)
[2023-04-21 04:08] LABS: COVID AG,FIA SOURCE NASAL SWAB
[2023-04-21 04:14] LABS: ANION GAP 6 mmol/L (8-16); CALCIUM, TOTAL 9.3 mg/dL (8.8-10.5); CARBON DIOXIDE 30 mmol/L (22-29); CHLORIDE 101 mmol/L (98-107); GLOMERULAR FILTR. RATE CALC > 60 mL/min (>60); GLUCOSE,RANDOM 137 mg/dL (70-110); POTASSIUM 4.1 mmol/L (3.5-5.1); SODIUM SERUM 137 mmol/L (136-145); UREA NITROGEN, BLOOD 10 mg/dL (7-18)
[2023-04-21 04:18] LABS: SARS-COV2 (COVID) ANTIGEN,FIA Negative (Negative)
[2023-04-21 04:19] LABS: ALANINE AMINOTRANSFERASE 26 U/L (12-78); ALBUMIN 2.9 g/dL (3.4-5.0); ALKALINE PHOSPHATASE 99 U/L (46-116); ASPARTATE AMINOTRANSFERASE 15 U/L (15-37); BILIRUBIN,TOTAL 0.4 mg/dL (0.1-1.0); TOTAL PROTEIN, SERUM 7.4 g/dL (6.4-8.2)
[2023-04-21 10:22] LABS: PH,URINE DRUG SCREEN 5.5 (5.0-8.0)
[2023-04-21 10:29] LABS: ALCOHOL, URINE DRUG SCREEN NEGATIVE (NEGATIVE); AMPHET/METH SCREEN,URINE NEGATIVE (NEGATIVE); BARBITURATE SCREEN, URINE NEGATIVE (NEGATIVE); BENZODIAZEPINES SCREEN,URINE POSITIVE (NEGATIVE); CANNABINOID SCREEN,URINE NEGATIVE (NEGATIVE); COCAINE SCREEN,URINE NEGATIVE (NEGATIVE); METHADONE SCREEN, URINE NEGATIVE (NEGATIVE); OPIATE SCREEN,URINE NEGATIVE (NEGATIVE); PHENCYCLIDINE SCREEN,URINE NEGATIVE (NEGATIVE)
== END 2023-04-21 15:00 | disposition home or self-care (01) ==
LOC: EMS 02:53
DX: F25.1 Schizoaffective disorder, depressive type (principal); H60.91 Unspecified otitis externa, right ear; F10.20 Alcohol dependence, uncomplicated; F41.9 Anxiety disorder, unspecified; I10 Essential (primary) hypertension; F14.90 Cocaine use, unspecified, uncomplicated; F12.90 Cannabis use, unspecified, uncomplicated; F15.90 Other stimulant use, unspecified, uncomplicated; Z20.822 Contact with and (suspected) exposure to COVID-19
CPT/HCPCS: 99282; 87426; 80053; 85025; 36415; 80307; G0480

== ENCOUNTER 2023-08-17 08:29 | Emergency (ER) | payer MEDICAID, MEDICARE ==
[~2023-08-17] VITALS: Ht 188 cm; Wt 88.6 kg
[~2023-08-17 08:29] MED LIST changes: +ACID1TAB13 PO; +AMOX500C2 PO; +ATOR20TA PO; -BUPR-49 PO; +BUPR-50 PO; +CIPOTIC AD; +GABA-1201 PO; -GABA-534 PO; -QUET200T30 PO; +QUET300T2 PO
[2023-08-17 08:35] VITALS: TEMP 98.2
[2023-08-17] MEDS: SODIUM CHLORIDE 0.9% 1,000 ML IV ONE (09:03)
[2023-08-17 09:09] LABS: BASOPHILS % (AUTO) 0.6 % (0.0-2.0); EOSINOPHILS % (AUTO) 3.8 % (1.0-6.0); HEMATOCRIT 42.3 % (41-53); HEMOGLOBIN 14.4 g/dL (13.5-17.5); LYMPHOCYTES # (AUTO) 1.1 K/uL (1.0-4.8); LYMPHOCYTES % (AUTO) 15.2 % (22.0-44.0); MEAN CORPUSCULAR HEMOGLOBIN 32.6 pg (26.0-34.0); MEAN CORPUSCULAR VOLUME 96 fL (80-100); MONOCYTES # (AUTO) 0.7 K/uL (0.1-1.0); MONOCYTES % (AUTO) 9.6 % (2.0-9.0); NEUTROPHILS % (AUTO) 70.8 % (40.0-70.0); PLATELET COUNT (AUTO) 279 K/uL (150-450); RED BLOOD CELL COUNT(AUTO) 4.42 MIL/uL (4.50-5.90); RED CELL DISTRIBUTION WIDTH 14.1 % (11.5-14.5); WHITE BLOOD COUNT (AUTO) 7.1 K/uL (4.5-11.0)
[2023-08-17 09:13] LABS: ANION GAP 7 mmol/L (8-16); CALCIUM, TOTAL 8.3 mg/dL (8.8-10.5); CARBON DIOXIDE 30 mmol/L (22-29); CHLORIDE 102 mmol/L (98-107); GLOMERULAR FILTR. RATE CALC > 60 mL/min (>60); GLUCOSE,RANDOM 92 mg/dL (70-110); POTASSIUM 4.2 mmol/L (3.5-5.1); SODIUM SERUM 139 mmol/L (136-145); UREA NITROGEN, BLOOD 16 mg/dL (7-18)
[2023-08-17 09:16] LABS: ALCOHOL, BLOOD (SERUM) < 3 mg/dL (0-10)
[2023-08-17 09:17] LABS: PROTHROMBIN TIME 10.7 SEC (9.4-11.6)
[2023-08-17 09:29] LABS: TROPONIN I-HIGH SENSITIVITY 102 ng/L (<76)
[2023-08-17 09:30] LABS: B-TYPE NATRIURETIC PEPTIDE < 5 pg/mL (0-100)
[2023-08-17 09:38] LABS: ALANINE AMINOTRANSFERASE 31 U/L (12-78); ALBUMIN 2.9 g/dL (3.4-5.0); ALKALINE PHOSPHATASE 94 U/L (46-116); ASPARTATE AMINOTRANSFERASE 18 U/L (15-37); BILIRUBIN,TOTAL 0.2 mg/dL (0.1-1.0); CREATINE KINASE, TOTAL ONLY 121 U/L (39-308); TOTAL PROTEIN, SERUM 6.9 g/dL (6.4-8.2)
[2023-08-17] MEDS: ACETAMINOPHEN 500 MG TABLET PO ONE (10:22)
[2023-08-17 10:45] LABS: TROPONIN I-HIGH SENSITIVITY 103 ng/L (<76)
[2023-08-17 13:43] LABS: APPEARANCE,URINE CLEAR (CLEAR); BILIRUBIN,URINE NEGATIVE (NEGATIVE); COLOR,URINE YELLOW (YELLOW); GLUCOSE, URINE (UA) NEGATIVE (NEGATIVE); KETONES,URINE NEGATIVE (NEGATIVE); LEUKOCYTE ESTERASE ,URINE NEGATIVE (NEGATIVE); NITRATE,URINE NEGATIVE (NEGATIVE); OCCULT BLOOD,URINE NEGATIVE (NEGATIVE); PH,URINE 6.5 (5.0-8.0); PH,URINE DRUG SCREEN 6.5 (5.0-8.0); PROTEIN,URINE TRACE mg/dL (NEGATIVE); SPECIFIC GRAVITIY, URINE 1.026 (1.003-1.030); UROBILINOGEN,URINE <=1.0 mg/dL (<=1.0)
[2023-08-17 13:50] LABS: ALCOHOL, URINE DRUG SCREEN NEGATIVE (NEGATIVE); AMPHET/METH SCREEN,URINE POSITIVE (NEGATIVE); BARBITURATE SCREEN, URINE NEGATIVE (NEGATIVE); BENZODIAZEPINES SCREEN,URINE NEGATIVE (NEGATIVE); CANNABINOID SCREEN,URINE NEGATIVE (NEGATIVE); COCAINE SCREEN,URINE NEGATIVE (NEGATIVE); METHADONE SCREEN, URINE NEGATIVE (NEGATIVE); OPIATE SCREEN,URINE NEGATIVE (NEGATIVE); PHENCYCLIDINE SCREEN,URINE NEGATIVE (NEGATIVE)
[2023-08-17 14:45] VITALS: BP 140/31; PULSE 65; RESP 14
[2023-08-17 15:00] LABS: TROPONIN I-HIGH SENSITIVITY 99 ng/L (<76)
== END 2023-08-17 15:02 | disposition home or self-care (01) ==
LOC: EMS 08:29
DX: D68.9 Coagulation defect, unspecified (principal); F20.9 Schizophrenia, unspecified; F15.10 Other stimulant abuse, uncomplicated; R07.89 Other chest pain; F10.20 Alcohol dependence, uncomplicated; F41.9 Anxiety disorder, unspecified; F31.9 Bipolar disorder, unspecified; J44.9 Chronic obstructive pulmonary disease, unspecified; I10 Essential (primary) hypertension; F17.210 Nicotine dependence, cigarettes, uncomplicated; F14.90 Cocaine use, unspecified, uncomplicated; F12.90 Cannabis use, unspecified, uncomplicated
CPT/HCPCS: 99285; 96360; 71045; 80053; 81003; 82550; 83880; 84484; 85025; 85610; 85730; 93005; 80307; 36415; G0480; J7030

== ENCOUNTER 2023-10-20 08:42 | Inpatient (IN) | payer MEDICARE, MEDICAID ==
[~2023-10-20] VITALS: Ht 188 cm; Wt 95.9 kg
[~2023-10-20 08:42] MED LIST changes: -BUPR-50 PO; +BUPR-514 PO
[2023-10-20] MEDS ORDERED: TUBERCULIN, PURIFIED PROTEIN DERIVATIVE 5 TU/0.1 ML SYRINGE ID ONE (10:30)
[2023-10-20] MEDS ORDERED: ZOLPIDEM TARTRATE 10 MG TABLET PO PRN (10:30)
[2023-10-20] MEDS ORDERED: QUEtiapine FUMARATE 100 MG TABLET PO PRN (10:30)
[2023-10-20] MEDS ORDERED: LORazepam 2 MG TABLET PO PRN (10:30)
[2023-10-20] MEDS ORDERED: LOPERAMIDE HCL 2 MG CAPSULE PO PRN (10:30)
[2023-10-20] MEDS ORDERED: GuaiFENesin/D-METHORPHAN [SUGAR-FREE] 200-20MG/10 ML SYRUP UDCUP PO PRN (10:30)
[2023-10-20] MEDS ORDERED: MAG HYDROX/ALUMINUM HYD/SIMETH ES 30 ML SUSPENSION UDCUP PO PRN (10:30)
[2023-10-20] MEDS ORDERED: PROMETHAZINE HCL 25 MG TABLET PO PRN (10:30)
[2023-10-20] MEDS ORDERED: HydrOXYzine PAMOATE 50 MG CAPSULE PO PRN (10:30)
[2023-10-20] MEDS ORDERED: ACETAMINOPHEN 325 MG TABLET PO PRN (10:30)
[2023-10-20 10:41] LABS: GLUCOMETER DEV NAME(LOC) POC.BV; POC SARS-COV2 AG, FIA NEGATIVE (NEGATIVE)
[2023-10-20] MEDS ORDERED: QUET-28 PO (11:22)
[2023-10-20 12:44] VITALS: BP 162/97; PULSE 73; RESP 20; TEMP 97.9; O2SAT 98
[2023-10-20] MEDS: LORazepam 2 MG TABLET PO PRN (13:18)
[2023-10-20] MEDS: GABAPENTIN 400 MG CAPSULE PO SCH (13:18)
[2023-10-20 17:00] VITALS: BP 160/87; PULSE 78; RESP 18; TEMP 97.9; O2SAT 99
[2023-10-20] MEDS: THIAMINE 100 MG TABLET PO SCH (17:58)
[2023-10-20 18:00] VITALS: BP 164/94; PULSE 68; RESP 18; TEMP 97.6; O2SAT 97
[2023-10-20 19:00] VITALS: BP 156/82; PULSE 69; RESP 17; TEMP 97.7; O2SAT 97
[2023-10-20] MEDS: QUEtiapine FUMARATE 300 MG TABLET PO SCH (20:28)
[2023-10-20] MEDS: MELATONIN 5 MG TABLET PO SCH (20:28)
[2023-10-20 20:35] VITALS: BP 143/79; PULSE 66; RESP 18; TEMP 97.5; O2SAT 97
[2023-10-21] VITALS (11 sets, daily range): BP systolic 92–146; BP diastolic 56–69; PULSE 56–80; RESP 16–19; TEMP 97.4–98.5; O2SAT 96–98
[2023-10-21] MEDS ORDERED: LORazepam 2 MG TABLET PO PRN (07:00)
[2023-10-21 08:29] LABS: BASOPHILS % (AUTO) 0.7 % (0.0-2.0); EOSINOPHILS % (AUTO) 6.2 % (1.0-6.0); HEMATOCRIT 42.6 % (41-53); HEMOGLOBIN 14.2 g/dL (13.5-17.5); LYMPHOCYTES # (AUTO) 1.5 K/uL (1.0-4.8); LYMPHOCYTES % (AUTO) 30.1 % (22.0-44.0); MEAN CORPUSCULAR HEMOGLOBIN 32.2 pg (26.0-34.0); MEAN CORPUSCULAR HGB CONC 33.4 G/dL (31.0-37.0); MEAN CORPUSCULAR VOLUME 96 fL (80-100); MONOCYTES # (AUTO) 0.5 K/uL (0.1-1.0); MONOCYTES % (AUTO) 9.3 % (2.0-9.0); NEUTROPHILS # (AUTO) 2.7 K/uL (1.8-7.7); NEUTROPHILS % (AUTO) 53.7 % (40.0-70.0); PLATELET COUNT (AUTO) 222 K/uL (150-450); RED BLOOD CELL COUNT(AUTO) 4.42 MIL/uL (4.50-5.90); RED CELL DISTRIBUTION WIDTH 14.6 % (11.5-14.5)
[2023-10-21 08:45] LABS: HEMOGLOBIN A1C 5.6 % (3.8-5.6)
[2023-10-21 09:02] LABS: ALANINE AMINOTRANSFERASE 44 U/L (12-78); ALBUMIN 2.9 g/dL (3.4-5.0); ALKALINE PHOSPHATASE 92 U/L (46-116); ANION GAP 6 mmol/L (8-16); ASPARTATE AMINOTRANSFERASE 28 U/L (15-37); BILIRUBIN,TOTAL 0.5 mg/dL (0.1-1.0); CALCIUM, TOTAL 8.6 mg/dL (8.8-10.5); CARBON DIOXIDE 28 mmol/L (22-29); CHLORIDE 106 mmol/L (98-107); CHOLESTEROL 233 mg/dL (131-200); CREATININE 0.78 mg/dL (0.60-1.30); GLOMERULAR FILTR. RATE CALC > 60 mL/min (>60); GLUCOSE,RANDOM 112 mg/dL (70-110); HDL CHOLESTEROL 63 mg/dL (40-60); POTASSIUM 4.1 mmol/L (3.5-5.1); SODIUM SERUM 140 mmol/L (136-145); TOTAL PROTEIN, SERUM 6.3 g/dL (6.4-8.2); TRIGLYCERIDES 111 mg/dL (15-150); UREA NITROGEN, BLOOD 13 mg/dL (7-18)
[2023-10-21 09:03] LABS: CHOL/HDL RATIO 3.7 (4.2-7.3); FREE T4 (FREE THYROXINE) 0.98 ng/dL (0.76-1.46); LDL CHOL (CALC.) 148 mg/dL (0-130); THYROID STIMULATING HORMONE 2.88 uIU/mL (0.36-3.74)
[2023-10-21] MEDS: NALTREXONE HCL 50 MG TABLET PO SCH (09:27)
[2023-10-21] MEDS: MULTIVITAMINS WITH MINERALS, THERAPEUTIC TABLET PO SCH (09:28)
[2023-10-21] MEDS: OMEGA-3/DHA/EPA/FISH OIL 1,000 MG CAPSULE PO SCH (09:28)
[2023-10-21] MEDS: LORazepam 2 MG TABLET PO SCH (09:28)
[2023-10-21] MEDS: FOLIC ACID 1 MG TABLET PO SCH (09:29)
[2023-10-22 09:01] VITALS: RESP 18
[2023-10-22 14:00] VITALS: BP 110/60; RESP 18
[2023-10-22] MEDS: GABAPENTIN 300 MG CAPSULE PO SCH (17:54)
[2023-10-22 20:20] VITALS: BP 129/83; PULSE 68; RESP 18; TEMP 98; O2SAT 98
[2023-10-23] MEDS ORDERED: LORazepam 1 MG TABLET PO PRN (07:00)
[2023-10-23 09:00] VITALS: BP 104/64; PULSE 61; RESP 18; TEMP 97.3; O2SAT 98
[2023-10-23] MEDS: LORazepam 1 MG TABLET PO SCH (09:22)
[2023-10-23 13:02] VITALS: BP 111/76; RESP 18
[2023-10-23 21:05] VITALS: BP 115/77; PULSE 84; TEMP 96.9; O2SAT 94
[2023-10-24] MEDS ORDERED: LORazepam 1 MG TABLET PO PRN (07:00)
[2023-10-24 08:40] VITALS: BP 114/60; PULSE 67; RESP 18; TEMP 97.8; O2SAT 98
[2023-10-24] MEDS: GABAPENTIN 400 MG CAPSULE PO SCH (12:27)
[2023-10-24 21:31] VITALS: BP 114/60; PULSE 67; RESP 18; TEMP 97.8; O2SAT 98
[2023-10-25 08:35] VITALS: BP 92/58; PULSE 71; RESP 17; TEMP 96.7; O2SAT 93
[2023-10-25 18:02] VITALS: BP 122/83; PULSE 84; RESP 16; O2SAT 96
[2023-10-25 20:26] VITALS: BP 141/88; PULSE 96; RESP 16; TEMP 97.8; O2SAT 96
[2023-10-26] MEDS: BuPROPion HCL XL 150 MG ER TABLET PO SCH (08:46)
[2023-10-26] MEDS: MAGNESIUM HYDROXIDE SUSPENSION 30 ML UDCUP PO PRN (12:36)
[2023-10-26 14:18] VITALS: BP 137/80; PULSE 95; RESP 18; TEMP 97.8; O2SAT 95
[2023-10-26 20:58] VITALS: BP 126/76; PULSE 83; RESP 18; TEMP 97.2; O2SAT 100
[2023-10-27 08:26] VITALS: BP 99/58; PULSE 85; RESP 17; TEMP 97.6; O2SAT 100
[2023-10-27 20:44] VITALS: BP 109/76; PULSE 89; RESP 18; TEMP 97.4; O2SAT 95
[2023-10-28] MEDS: BuPROPion HCL XL 150 MG ER TABLET PO SCH (08:52)
[2023-10-28 08:54] VITALS: BP 140/76; PULSE 70; RESP 18; TEMP 97.6; O2SAT 94
[2023-10-28] MEDS ORDERED: BuPROPion HCL XL 150 MG ER TABLET PO SCH (09:00)
[2023-10-28] MEDS ORDERED: NALT50TA33 PO (14:59)
[2023-10-28] MEDS ORDERED: OMEG-135 PO (14:59)
[2023-10-28] MEDS ORDERED: GABA-1201 PO (14:59)
[2023-10-28] MEDS ORDERED: MELA5TAB40 PO (14:59)
[2023-10-28] MEDS ORDERED: BUPR-514 PO (14:59)
[2023-10-28] MEDS ORDERED: QUET300T19 PO (14:59)
== END 2023-10-28 17:30 | disposition home or self-care (01) | DRG 885 ==
LOC: B2S 10:31
PROVIDERS: ADMIT Psychiatry & Neurology Psychiatry; ATTEND Psychiatry & Neurology Psychiatry
DX: F25.0 Schizoaffective disorder, bipolar type (principal); Z59.00 Homelessness unspecified; F15.20 Other stimulant dependence, uncomplicated; J44.9 Chronic obstructive pulmonary disease, unspecified; E78.5 Hyperlipidemia, unspecified; F10.20 Alcohol dependence, uncomplicated; Y90.9 Presence of alcohol in blood, level not specified; F12.20 Cannabis dependence, uncomplicated; Z20.822 Contact with and (suspected) exposure to COVID-19; K21.9 Gastro-esophageal reflux disease without esophagitis; J32.9 Chronic sinusitis, unspecified; F41.9 Anxiety disorder, unspecified; F17.200 Nicotine dependence, unspecified, uncomplicated; Z81.8 Family history of other mental and behavioral disorders
CPT/HCPCS: 80053; 80061; 83036; 84439; 84443; 85025; 86592; Q9967